=== PATIENT | female | born 1960 | race Caucasian/White ===

== ENCOUNTER 2016-08-12 01:48 | Inpatient (IN) ==
[2016-08-12] MEDS ORDERED: *HR* Heparin 5,000 UNIT/ML VIAL IVP PRN (04:04)
[2016-08-12] MEDS ORDERED: *HR* Heparin 5,000 UNIT/ML VIAL IVP ONE (04:04)
[2016-08-12] MEDS ORDERED: *HR* Metoprolol 5 MG/5 ML VIAL IVP PRN (04:04)
[2016-08-12] MEDS ORDERED: Pantoprazole 40 MG VIAL IVP STA (04:18)
[2016-08-12] MEDS ORDERED: *HR* OxyCODONE Immed Rel 5 MG TABLET PO PRN (04:18)
[2016-08-12] MEDS ORDERED: Ondansetron 4 MG/2 ML VIAL IVP PRN (04:18)
[2016-08-12] MEDS ORDERED: *HR* Morphine 2 MG/ML SYRINGE IVP PRN (04:18)
[2016-08-12] MEDS ORDERED: Naloxone 0.4 MG/ML INJ IVP PRN (04:18)
[2016-08-12] MEDS ORDERED: Albuterol 2.5 MG/3 ML NEBULIZER IH PRN (04:24)
[2016-08-12] MEDS ORDERED: 0.9 % Sodium Chloride 1,000 ML IVC SCH (04:30)
--- NOTE | 2016-08-12 04:53 | Internal Med History&Physical ---
<Cheryl Mueller - Last Filed: 08/12/16 04:43> Date of Encounter: 08/12/16 Time of Encounter: 04:15 Assessment and Plan (1) NSTEMI (non-ST elevated myocardial infarction) Current visit: No Status: Acute patient started having dull chest pain that started out as 10/10 and was relieved with nitroglycerin and ASA. Currently chest pain free. tropes .2 (At [place]), second trope .13. Third trope pending. Patient's EKG reviewed and compared to old EKG: shows sinus rhythm with new t wave changes consistent with anterolateral ischemia. Patient's BRAYAN score is 5, indicating 26% 14 day all cause mortality Start Heparin drip Continue ASA, Atorvastatin, Carvedilol, Plavix, Oxygen, Morphine, Nitroglycerin Lipid panel pending. NPO Consult to Cardiology for evaluation. (2) Anemia Current visit: Yes Status: Acute Hg measured at 10.3 Her baseline Hg is around 12. Etiology unclear at this time. stool occult blood pending. iron panel pending. TSH pending. B12, Folate levels pending. Qualifiers: Anemia type: unspecified type Qualified Code(s): D64.9 - Anemia, unspecified (3) CAD (coronary artery disease) Current visit: No Status: Chronic Continue ASA, Statin, plavix Qualifiers: Coronary Disease-Associated Artery/Lesion type: [place] artery [place] vs. transplanted heart: [place] heart Associated angina: without angina Qualified Code(s): I25.10 - Atherosclerotic heart disease of [place] coronary artery without angina pectoris (4) CHF (congestive heart failure) Current visit: No Status: Chronic Last echo on 02/18/16 showed LVEF 50%, normal LV size and low-normal systolic funciton, moderate diastolic dysfunciton of LV, no valvular dysfunction. COntinue to monitor. Continue home meds once med list confirmed. Qualifiers: Congestive heart failure type: diastolic Congestive heart failure chronicity: chronic Qualified Code(s): I50.32 - Chronic diastolic (congestive ) heart failure (5) COPD (chronic obstructive pulmonary disease) Current visit: No Status: Chronic Duo[place]eb PRN Qualifiers: COPD type: unspecified COPD Qualified Code(s): J44.9 - Chronic obstructive pulmonary disease, unspecified (6) Diabetes mellitus Current visit: No Status: Chronic Low dose sliding scale insulin with Q4 HR accuchecks. Qualifiers: Diabetes mellitus type: type 2 Diabetes mellitus complication status: with hyperglycemia Diabetes mellitus long term acute care registered nurse insulin use: without long term acute care registered nurse use Qualified Code(s): E11.65 - Type 2 diabetes mellitus with hyperglycemia (7) Dyslipidemia Current visit: No Status: Chronic Atorvastatin (8) RICHIE (obstructive sleep apnea) Current visit: No Status: Chronic patient states she is compliant with her CPAP at home. Consult to respiratory therapy to manage CPAP- qHS and when napping. (9) HTN (hypertension) Current visit: No Status: Chronic bp now stable. resume home blood pressure meds once med list is confirmed. Qualifiers: Hypertension type: essential hypertension Qualified Code(s): I10 - Essential (primary) hypertension (10) Tobacco use Current visit: Yes Status: Chronic patient counseled on importance of smoking cessation nicotine patch PRN. (11) DVT prophylaxis Current visit: No Status: Acute Heparin Drip Protonix for GI prophylaxis. Internal Medicine - H&P: HPI Chief complaint: chest pain Admitted From: Hospital to Hospital Transfer Plans for Post Hospital Care: Home History of present illness: PCP: Kiel Fisher Ms. Ferguson is a 56 year old female with PMHx of STEMI, RICHIE (reports compliance with CPAP), HTN, PVD, CAD, CHF (last echo on 02/18/16 showed LVEF 50%, normal LV size and low normal systolic function, moderate diastolic dysfunction of LV, no valvular dysfunction), HLD, DM2, COPD (on 3L home oxygen). Patient presents as a transfer from [facility]. Around 9pm yesterday evening, patient was making a sandwich at home when she noticed a dull ache in the center of her chest radiating down both of her arms and her jaw. She rates the pain as 10/10 when it first started, and it was so bad that she called the squad. In the ER, She received ASA, SL nitroglycerin, and nitro paste at the ER in [facility], which relieved the pain. Currently, the patient says her pain is 0/10. Patient denies nausea, vomiting, diarrhea. Admits to fever and chills. Denies dizziness , syncope, hematuria, hematochezia. Social Hx: lives by herself at home. Smokes 1/2-1 PPD. Has smoked for 42 years. Denies alcohol or illicit drug use. Family Hx: father from CHF/COPD at 81. Mother of pneumonia at 79, also had hx of uterine cancer. Surgical Hx: heart cath 2004, angioplasty 04/2014, Aorta B-femoral double bypass 05/2014, [facility] with stent 03/2016, tonsillectomy, hysterectomy Past Med Surg Social Fam HX - Past Medical History Medical history: CHF, COPD, coronary artery disease, diabetes, hyperlipidemia, hypertension, myocardial infarction, peripheral artery disease, other Psychiatric history: anxiety - Past Surgical History Surgical History: angioplasty/stent, hysterectomy, other (Aorto femoral bypass) - Social History Smoking Status: Former smoker Smokeless Tobacco Status: No Alcohol use: none Drug use: none - Family History Brother Hx Family Cardiac Disorders: Yes Son Living Status: Still Living Hx Family Respiratory Disorders: Yes (Childhood Asthma) Father Living Status: Hx Family Respiratory Disorders: Yes (COPD) Mother Living Status: Hx Family Cardiac Disorders: Yes (heart attack) Hx Family Respiratory Disorders: Yes (PNE) Internal Medicine - H&P: Meds Aspirin [Lo-Dose Aspirin EC] 81 mg PO DAILY 02/18/16 [History] Carvedilol [Coreg] 25 mg PO BID 02/18/16 [History] ClonazePAM [Clonazepam] 0.5 mg PO BID 02/18/16 [History] Ergocalciferol (VITAMIN D2) [Vitamin D2 (50,000 UNIT)] 50,000 unit PO QWEEK [History] Furosemide [Lasix] 40 mg PO TID 02/18/16 [History] Gabapentin [Neurontin] 400 mg PO TID 02/18/16 [History] Metformin [Glucophage] 500 mg PO BID 02/18/16 [History] Nitroglycerin 0.4 mg SL Q5MIN PRN 02/18/16 [History] Pantoprazole Sodium 40 mg PO DAILY 02/18/16 [History] Potassium Chloride [K-Tab ER] 10 meq PO BID 02/18/16 [History] Amlodipine [Norvasc] 10 mg PO DAILY #30 tablet 02/27/16 [Rx] Atorvastatin [Lipitor] 80 mg PO HS #30 tablet 02/27/16 [Rx] Beclomethasone Diprop 80mcg [QVAR 80 mcg] 2 puff IH BIDR #1 inhaler 02/27/16 [Rx ] Clopidogrel [Plavix] 75 mg PO DAILY #30 tablet 02/27/16 [Rx] Fluticasone Propionate Nasal [Flonase] 100 mcg NS DAILY #1 bottle 02/27/16 [Rx] Tiotropium [Spiriva] 18 mcg IH DAILYR inh 03/07/16 [Rx] Isosorbide MONOnitrate (24 HR) [Imdur] 30 mg PO DAILY 08/12/16 [History] Allergies acetaminophen [From Vicodin] Allergy (Verified 07/12/15 08:51) Hives hydrocodone [From Vicodin] Allergy (Verified 07/12/15 08:51) Hives budesonide [From Symbicort] Adverse Reaction (Verified 02/20/16 08:46) Cough Formoterol [From Symbicort] Adverse Reaction (Verified 02/20/16 08:46) Cough All Systems PM: A 10-system review of systems was performed and is negative for pertinent findings except as documented above in the HPI. - Constitutional Constitutional: chills, fever(s), no falls, no lethargy - Cardiovascular Cardiovascular ROS IM: chest pain, no lightheadedness, no palpitations, no syncope - Gastrointestinal Gastrointestinal: no abdominal pain, no hematochezia, no melena, no nausea - Neurological Neurological ROS: no dizziness, no headache(s) - Constitutional Vitals: Temp Pulse Resp BP Pulse Ox 97.6 F 71 18 114/71 97 08/12/16 04:16 08/12/16 04:16 08/12/16 04:16 08/12/16 04:16 08/12/16 04:16 General appearance: Present: A&O X 3, no acute distress, answers questions appropriately - Head Head exam: Present: atraumatic, normocephalic - Eye Eye exam: Present: PERRL Pupils: Present: PERRL - Neck Neck exam general surgery: Present: supple, trachea midline. Absent: lymphadenopathy - Respiratory Respiratory exam: Present: decreased breath sounds - Cardiovascular Cardiovascular exam: Present: RRR, +S1, +S2 - GI/Abdominal GI/Abdominal exam: Present: soft, tenderness (LUQ and LLQ abdominal tenderness to deep palpation. ) Additional comments: midline scar present from aortic bypass surgery. - Extremities Exam Extremities exam: Absent: cyanotic, pedal edema - Back Exam Additional comments: two scars present from cyst removal. - Neurological Exam Neurological exam: Present: alert, oriented X3, no focal deficits <Asad Estevez - Last Filed: 08/14/16 01:53> Date of Encounter: 08/12/16 Internal Medicine - H&P: HPI History of present illness: Ms. Ferguson is a 56 year old female admitted to [facility] with chief complaint of chest pain. The patient was visited and interviewed and examined. I examined this patient and my medical decision-making was reviewed with the Resident Physician. I agree with the documented findings, disposition and treatment plan as described except to the extent set forth below. Cumulative laboratory and radiographic data was reviewed and considered and discussed. Pertinent ancillary medical records including ECW and PCI documentation was reviewed and considered. Given the patient's presenting concerns, past medical history, clinical findings and symptoms, she is admitted at this time to undergo further evaluation and disposition. Orders were written as per the computerized physician food and beverage order clerk system......................... All Systems PM: A 10-system review of systems was performed and is negative for pertinent findings except as documented above in the HPI. - Constitutional Vitals: Temp Pulse Resp BP Pulse Ox 97.9 F 76 18 168/77 97 08/14/16 00:05 08/14/16 00:05 08/14/16 00:05 08/14/16 00:05 08/14/16 00:05 Internal Med - H&P Results - Labs CBC & Chem 7: 08/13/16 00:14 08/13/16 00:14 - Impressions Vital Signs Temp Pulse Resp BP Pulse Ox 08/14/16 00:05 97.9 F 76 18 168/77 97 08/13/16 23:42 20 98 08/13/16 23:02 180/92 08/13/16 22:44 193/89 08/13/16 20:49 98.5 F 73 16 179/84 97 08/13/16 16:05 4 97 08/13/16 15:09 98.3 F 74 16 156/72 99 08/13/16 11:19 98.1 F 72 16 145/69 98 08/13/16 10:32 24 98 08/13/16 07:24 98.2 F 77 16 162/70 95 08/13/16 04:26 97.8 F 76 20 147/65 99 08/13/16 03:54 17 98 Intake and Output 08/13/16 08/13/16 08/14/16 15:59 23:59 07:59 Intake Total 840 / 840 360 / 360 Output Total 400 / 400 850 / 850 Balance 440 / 440 -490 / -490 Intake: Oral 840 / 840 360 / 360 Output: Urine 400 / 400 850 / 850 Other: Meal Lunch Dinner Percent of Meal Consumed 100% 100% Stool Size Moderate Stool Consistency soft Stool Color Brown Blood Glucose* 148 151 Abnormal lab results Hgb 10.0 g/dL (11.5-15.4) L 08/13/16 00:14 Hct 31.9 % (35.3-44.9) L 08/13/16 00:14 MCV 77.4 fL (83.0-100.0) L 08/13/16 00:14 MCH 24.3 pg (28.0-33.3) L 08/13/16 00:14 MCHC 31.3 g/dL (31.6-35.5) L 08/13/16 00:14 RDW 16.5 % (11.5-14.5) H 08/13/16 00:14 APTT 74.1 Seconds (26.0-36.0) H D 08/13/16 08:10 Glucose 146 mg/dL (70-99) H 08/13/16 00:14 POC Glucose 151 (58-89) H 08/13/16 20:27 Hemoglobin A1c 5.9 % (-5.6) H 08/12/16 04:45 Iron 25 mcg/dL (50-170) L 08/13/16 00:14 % Saturation 7 % (15-50) L 08/13/16 00:14 Alkaline Phosphatase 196 Units/L (38-126) H 08/12/16 04:45 Troponin I 0.12 ng/mL (0-0.03) H* 08/13/16 00:14 Albumin 3.1 g/dL (3.5-5.0) L 08/12/16 04:45 Albumin/Globulin Ratio 0.9 (1.1-2.2) L 08/12/16 04:45 Triglycerides 249 mg/dL (< 150) H 08/13/16 00:14 LDL Cholesterol, Calc 111 mg/dL (0-99) H 08/13/16 00:14 VLDL Cholesterol, Calc 50 mg/dL (< 31) H 08/13/16 00:14 HDL Cholesterol 23 mg/dL (40-59) L 08/13/16 00:14 Cholesterol/HDL Ratio 8.0 (0-4.9) H 08/13/16 00:14 Ur Specific [place] 1.006 (1.010-1.025) L 08/12/16 18:45 Ur Leukocyte Esterase Moderate (Negative) H 08/12/16 18:45 Urine Microscopic WBC 5-15 per hpf (0-3) H 08/12/16 18:45 Ur Squamous Epith Cells Many per lpf (None-Few) H 08/12/16 18:45 Urine Bacteria Many per hpf (None-Few) H 08/12/16 18:45 Allergies Allergy/AdvReac Type Severity Reaction Status Date / Time acetaminophen [From Vicodin] Allergy Hives Verified 07/12/15 08:51 hydrocodone [From Vicodin] Allergy Hives Verified 07/12/15 08:51 budesonide [From Symbicort] AdvReac Cough Verified 02/20/16 08:46 Formoterol [From Symbicort] AdvReac Cough Verified 02/20/16 08:46 Laboratory Results WBC 9.6 K/mcL (4.3-11.1) 08/13/16 00:14 RBC 4.12 M/mcL (3.82-4.97) 08/13/16 00:14 Hgb 10.0 g/dL (11.5-15.4) L 08/13/16 00:14 Hct 31.9 % (35.3-44.9) L 08/13/16 00:14 MCV 77.4 fL (83.0-100.0) L 08/13/16 00:14 MCH 24.3 pg (28.0-33.3) L 08/13/16 00:14 MCHC 31.3 g/dL (31.6-35.5) L 08/13/16 00:14 RDW 16.5 % (11.5-14.5) H 08/13/16 00:14 Plt Count 272 K/mcL (140-400) 08/13/16 00:14 MPV 9.6 fL (9.4-12.4) 08/13/16 00:14 Immature Gran % 0.5 % (0-4) 08/12/16 04:45 Seg Neutrophils % 63.8 % 08/12/16 04:45 Lymphocytes % 28.3 % 08/12/16 04:45 Monocytes % 5.5 % 08/12/16 04:45 Eosinophils % 1.4 % 08/12/16 04:45 Basophils % 0.5 % 08/12/16 04:45 Neutrophils # 5.4 K/mcL (1.6-8.9) 08/12/16 04:45 Lymphocytes # 2.4 K/mcL (0.6-4.6) 08/12/16 04:45 Monocytes # 0.5 K/mcL (0.0-1.3) 08/12/16 04:45 Eosinophils # 0.1 K/mcL (0.0-0.6) 08/12/16 04:45 Basophils # 0.0 K/mcL (0.0-0.2) 08/12/16 04:45 PT 11.5 Seconds (9.4-12.1) 08/13/16 00:14 INR 1.1 08/13/16 00:14 APTT 74.1 Seconds (26.0-36.0) H D 08/13/16 08:10 Sodium 142 mEq/L (136-145) 08/13/16 00:14 Potassium 4.2 mEq/L (3.5-4.5) 08/13/16 00:14 Chloride 107 mEq/L (98-109) 08/13/16 00:14 Carbon Dioxide 24 mEq/L (19-29) 08/13/16 00:14 BUN 15 mg/dL (7-20) 08/13/16 00:14 Creatinine 0.94 mg/dL (0.57-1.11) 08/13/16 00:14 Est GFR ( Amer) > 60 (> 60) 08/13/16 00:14 Est GFR (Non-Af Amer) > 60 (> 60) 08/13/16 00:14 BUN/Creatinine Ratio 16 (6-26) 08/13/16 00:14 Glucose 146 mg/dL (70-99) H 08/13/16 00:14 POC Glucose 151 (58-89) H 08/13/16 20:27 Est Mean Plasma Glucose 123 mg/dl 08/12/16 04:45 Hemoglobin A1c 5.9 % (-5.6) H 08/12/16 04:45 Calculated Osmolality 297 (280-300) 08/13/16 00:14 Calcium 9.2 mg/dL (8.6-10.8) 08/13/16 00:14 Phosphorus 4.3 mg/dL (2.3-4.7) 08/12/16 04:45 Magnesium 2.2 mg/dL (1.6-2.6) 08/12/16 04:45 Iron 25 mcg/dL (50-170) L 08/13/16 00:14 % Saturation 7 % (15-50) L 08/13/16 00:14 Transferrin 260 mg/dL (180-382) 08/13/16 00:14 Total Bilirubin 0.3 mg/dL (0.2-1.2) 08/12/16 04:45 AST 12 Units/L (5-34) 08/12/16 04:45 ALT 14 Units/L (0-55) 08/12/16 04:45 Alkaline Phosphatase 196 Units/L (38-126) H 08/12/16 04:45 Troponin I 0.12 ng/mL (0-0.03) H* 08/13/16 00:14 B-Natriuretic Peptide 40 pg/mL (0-100) 08/12/16 04:45 Serum Total Protein 6.4 g/dL (6.0-8.3) 08/12/16 04:45 Albumin 3.1 g/dL (3.5-5.0) L 08/12/16 04:45 Globulin 3.3 g/dL (2.4-3.5) 08/12/16 04:45 Albumin/Globulin Ratio 0.9 (1.1-2.2) L 08/12/16 04:45 Triglycerides 249 mg/dL (< 150) H 08/13/16 00:14 Cholesterol 184 mg/dL (< 200) 08/13/16 00:14 LDL Cholesterol, Calc 111 mg/dL (0-99) H 08/13/16 00:14 VLDL Cholesterol, Calc 50 mg/dL (< 31) H 08/13/16 00:14 HDL Cholesterol 23 mg/dL (40-59) L 08/13/16 00:14 Cholesterol/HDL Ratio 8.0 (0-4.9) H 08/13/16 00:14 Vitamin B12 347 pg/mL (213-816) 08/12/16 04:45 Folate 9.8 ng/mL (7.0-31.4) 08/12/16 04:45 TSH 0.516 mcIU/mL (0.350-4.840) 08/12/16 04:45 Urine Color Yellow (Yellow) 08/12/16 18:45 Urine Clarity Clear (Clear) 08/12/16 18:45 Urine pH 7.0 pH Units (5.0-8.0) 08/12/16 18:45 Ur Specific [place] 1.006 (1.010-1.025) L 08/12/16 18:45 Urine Protein Negative mg/dL (Neg-Trace) 08/12/16 18:45 Urine Glucose (UA) Normal mg/dL (Normal) 08/12/16 18:45 Urine Ketones Negative mg/dL (Negative) 08/12/16 18:45 Urine Blood Negative (Negative) 08/12/16 18:45 Urine Nitrite Negative (Negative) 08/12/16 18:45 Urine Bilirubin Negative (Negative) 08/12/16 18:45 Urine Urobilinogen Normal mg/dL (Normal) 08/12/16 18:45 Ur Leukocyte Esterase Moderate (Negative) H 08/12/16 18:45 Urine Microscopic RBC 0-3 per hpf (0-3) 08/12/16 18:45 Urine Microscopic WBC 5-15 per hpf (0-3) H 08/12/16 18:45 Ur Squamous Epith Cells Many per lpf (None-Few) H 08/12/16 18:45 Urine Bacteria Many per hpf (None-Few) H 08/12/16 18:45 Hyaline Casts None Seen per lpf (None-Few) 08/12/16 18:45 Urine Opiates Screen Negative ng/mL (Uvfxwi=865) 08/12/16 18:45 Ur Barbiturates Screen Negative ng/mL (Opgmoa=150) 08/12/16 18:45 Ur Phencyclidine Scrn Negative ng/mL (Cutoff=25) 08/12/16 18:45 Ur Amphetamines Screen Negative ng/mL (Rjavfy=6420) 08/12/16 18:45 U Benzodiazepines Scrn Negative ng/mL (Mmogsq=388) 08/12/16 18:45 Urine Cocaine Screen Negative ng/mL (Cutoff= 300) 08/12/16 18:45 U Marijuana (THC) Screen Negative ng/mL (Cutoff = 50) 08/12/16 18:45 Blood Type O NEGATIVE 08/12/16 04:45 Antibody Screen NEGATIVE 08/12/16 04:45 - Attending Attestation My signature below is to certify that this patient is under my care and that I, or the Resident Physician working with me, has had a [id number] encounter with this patient. Plan of care has been reviewed and discussed in detail with the patient. Questions addressed. Advance care directive discussion briefly addressed. The patient does not declare any healthcare restrictions at this time. Outpatient medication schedules will be reviewed, confirmed and facilitated as appropriate. Reconciliation of home treatments including adjustment substitutions and reintroduction to the treatment regimen status or maintenance therapies for chronic pre-existing medical conditions. Smoke cessation counseling briefly addressed. The patient declares herself a former smoker. Hospital course will be dependent on clinical findings, treatment response and potential consultative interventions. The patient is at risk for acute clinical decline and morbidity given the presenting chief complaint, findings and associated comorbidities. The condition is serious. Prognosis is cautiously optimistic. CODE STATUS is full.
[2016-08-12] MEDS: Heparin 25,000 UNIT/500 ML D5W 25,000 UNIT/500 ML MLS IVC SCH (04:58)
[2016-08-12 05:01] LABS: Basophils % 0.5 %; Eosinophils # 0.1 K/mcL (0.0-0.6); Eosinophils % 1.4 %; Hematocrit 33.4 % (35.3-44.9); Hemoglobin 10.3 g/dL (11.5-15.4); Immature Granulocytes % 0.5 % (0-4); Lymphocytes # 2.4 K/mcL (0.6-4.6); Lymphocytes % 28.3 %; Mean Corpuscular HGB Conc 30.8 g/dL (31.6-35.5); Mean Corpuscular Hemoglobin 23.8 pg (28.0-33.3); Mean Corpuscular Volume 77.1 fL (83.0-100.0); Mean Platelet Volume 9.2 fL (9.4-12.4); Monocytes # 0.5 K/mcL (0.0-1.3); Monocytes % 5.5 %; Neutrophils # 5.4 K/mcL (1.6-8.9); Platelet Count 326 K/mcL (140-400); Red Blood Count 4.33 M/mcL (3.82-4.97); Red Cell Distribution Width 16.4 % (11.5-14.5); Segmented Neutrophils % 63.8 %
[2016-08-12 05:09] LABS: INR 1.1; Prothrombin Time 11.9 Seconds (9.4-12.1)
[2016-08-12 05:12] LABS: Activated Partial Thrombo Time 38.9 Seconds (26.0-36.0)
[2016-08-12 05:15] LABS: Hemoglobin A1C 5.9 %
[2016-08-12 05:16] LABS: Alanine Aminotransferase 14 Units/L (0-55); Albumin 3.1 g/dL (3.5-5.0); Albumin/Globulin Ratio 0.9 (1.1-2.2); Alkaline Phosphatase 196 Units/L (38-126); Aspartate Amino Transferase 12 Units/L (5-34); BUN/Creatinine Ratio 15 (6-26); Bilirubin,Total 0.3 mg/dL (0.2-1.2); Blood Urea Nitrogen 13 mg/dL (7-20); Calcium 9.2 mg/dL (8.6-10.8); Carbon Dioxide 27 mEq/L (19-29); Chloride 105 mEq/L (98-109); Globulin 3.3 g/dL (2.4-3.5); Glucose 102 mg/dL (70-99); Magnesium 2.2 mg/dL (1.6-2.6); Osmolality,Calculated 294 (280-300); Potassium 3.8 mEq/L (3.5-4.5); Sodium 142 mEq/L (136-145); Total Protein 6.4 g/dL (6.0-8.3); eGFR For African Americans > 60 (> 60); eGFR For Non-African Americans > 60 (> 60)
[2016-08-12] MEDS ORDERED: *HR* Dextrose 50 % in Water (Syg) 50 ML SYRINGE IVP PRN (05:18)
[2016-08-12] MEDS ORDERED: Dextrose Gel 15 GM PO PRN ×2 (05:18)
[2016-08-12] MEDS ORDERED: D5% in Water 1,000 ML IV PRN (05:18)
[2016-08-12] MEDS: Ipratropium/Albuterol Neb 3 ML IH SCH ×4 (05:33→22:55)
[2016-08-12 05:38] LABS: Thyroid Stimulating Hormone 0.516 mcIU/mL (0.350-4.840)
[2016-08-12] MEDS ORDERED: Nitroglycerin 1 INCH/GM PACKET TP SCH (06:00)
[2016-08-12 07:08] LABS: Folate 9.8 ng/mL (7.0-31.4)
[2016-08-12] MEDS ORDERED: Insulin LISPRO 300 UNITS/3 ML VIAL SQ SCH ×2 (07:30→21:00)
[2016-08-12] MEDS: Insulin LISPRO 300 UNITS/3 ML VIAL SQ SCH ×4 (07:49→20:30)
[2016-08-12] MEDS: Lisinopril 20 MG TABLET PO SCH (09:23)
[2016-08-12] MEDS: Aspirin 81 MG TAB.CHEW PO SCH (09:23)
[2016-08-12] MEDS: Nicotine 21 MG PATCH.TD24 TD SCH (09:23)
[2016-08-12] MEDS ORDERED: Isosorbide MONOnitrate (24 HR) 60 MG TAB.ER.24H PO SCH (09:30)
--- NOTE | 2016-08-12 09:37 | Cardiology Consult Note ---
Date of Encounter: 08/12/16 Time of Encounter: 09:00 Assessment and Plan (1) Elevated troponin Current Visit: Yes Status: Acute NSTEMI type I vs. type II in the setting of severely elevated BP--214/104; however ACS cannot be ruled out. Denies recurrent symptoms since initial NTG spray. Non-specific ECG changes noted. Recently started on long-acting nitrate as outpatient for stable angina-- reports significant improvement in symptoms. Discussed medical management vs. [facility]; patient elects to trial of medical therapy with close outpatient follow-up. Increase Imdur to 60 mg; continue asa, statin, plavix, betablocker, and ACEi. DAPT uninterrupted at least 1 year s/p PRANAV--placed February 2016. Continue heparin gtt x24-48 hours. Check limited echocardiogram. (2) Diastolic CHF Current Visit: Yes Status: Acute Hx of diastolic CHF, EF preserved per most recent TTE in February 2016. Appears euvolemic upon exam, continue home medications. Severely elevated HTN upon admission, now controlled. Kidney function normal. 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 Continue outpt meds, defer further recommendations to primary service. Qualifiers: COPD type: unspecified COPD Qualified Code(s): J44.9 - Chronic obstructive pulmonary disease, unspecified (4) Tobacco use Current Visit: Yes Status: Chronic Smoking cessation counseling encouraged; has no interest to quit at this time. Discussion w patient/family: The assessment and plan as outlined above was discussed with the patient and/or family members who expressed understanding and agreement. All questions were answered. Thank you for involving us in the care of your patient. Please call with any questions. The patient will be discussed and reviewed with Dr. Babatunde Simmons; changes to be made accordingly. History of Present Illness Consult date: 08/12/16 Requesting physician: Asad Estevez Consult reason: Elevated troponin Chief complaint: Chest pain History of present illness: Ms. Ferguson is a 56 year old female with PMH significant for CAD s/p PCI, HTN, HLD, RICHIE, end-stage COPD dependent on home oxygen who presented to [facility] ED with 2-hr duration of chest pain. Pain was alleviated with x2 NTG spray administered by EMS. Reports chest discomfort with radiation to bilateral arms started while she was watching TV on the couch--she took her BP and it was 214/ 104. Initial troponin 0.21--she was transferred to [facility] for further evaluation. Upon arrival to [facility], troponin was 0.13. Non-specific ECG changes noted. She denies recurrent chest pain since admission. Recently started on Imdur as outpatient which has significantly improved stable angina symptoms at home. Prior CV testing includes: C 02/26/16: PTCA/PRANAV to prox-mid LAD; EF 55%; otherwise moderate-severe CAD (60% OM1, 30% pRCA, 70% dRCA). TTE 02/18/16: LVEF 50%; moderate LV diastolic dysfunction. Nuclear stress 07/2015:LVEF 32%, mild TID, moderate apical inferior ischemia TTE 10/10/2014: EF 45%. Mild concentric LVH. Holter monitor 02/15/2014: Normal sinus rhythm with rare PACs and PVCs. Non exercise, nuclear stress test 09/2011: Negative for ischemia. [facility] 2005: Report indicates mild disease involving the LAD (30%). Past Med Surg Social Fam HX - Past Medical History Medical history: CHF (chronic, diastolic), COPD, coronary artery disease, diabetes, hyperlipidemia, hypertension, myocardial infarction, peripheral artery disease Psychiatric history: anxiety - Past Surgical History Surgical History: angioplasty/stent, hysterectomy, other (Aorto femoral bypass) - Social History Smoking Status: Former smoker Smokeless Tobacco Status: No Alcohol use: none Drug use: none - Family History Brother Hx Family Cardiac Disorders: Yes Son Living Status: Still Living Hx Family Respiratory Disorders: Yes (Childhood Asthma) Father Living Status: Hx Family Respiratory Disorders: Yes (COPD) Mother Name: Vidhi Horn Family Member Ethnicity: Non- Living Status: Age at : 79 Cause of : bilateral pneumonia Hx Family Cardiac Disorders: Yes (heart attack) Hx Family Respiratory Disorders: Yes (PNE) Hx Family Cancer: Yes Hx Family GI Disorders: No Hx Family Genitourinary Disorders: No Hx Family Endocrine Disorder: No Hx Family Musculoskeletal Disorders: No Hx Family Neuromuscular Disorders: No Hx Family Neurologic Disorders: No Hx Family HEENT Disorders: No Hx Family Autoimmune Disorders: No Hx Family Reproductive Disorders: No Hx Family Psychosocial Disorders: No Hx Family Medical Disorders: No Medications and Allergies Aspirin [Lo-Dose Aspirin EC] 81 mg PO DAILY 02/18/16 [History] Carvedilol [Coreg] 25 mg PO BID 02/18/16 [History] ClonazePAM [Clonazepam] 0.5 mg PO BID 02/18/16 [History] Ergocalciferol (VITAMIN D2) [Vitamin D2 (50,000 UNIT)] 50,000 unit PO QWEEK [History] Furosemide [Lasix] 40 mg PO TID 02/18/16 [History] Gabapentin [Neurontin] 400 mg PO TID 02/18/16 [History] Metformin [Glucophage] 500 mg PO BID 02/18/16 [History] Nitroglycerin 0.4 mg SL Q5MIN PRN 02/18/16 [History] Pantoprazole Sodium 40 mg PO DAILY 02/18/16 [History] Potassium Chloride [K-Tab ER] 10 meq PO BID 02/18/16 [History] Amlodipine [Norvasc] 10 mg PO DAILY #30 tablet 02/27/16 [Rx] Atorvastatin [Lipitor] 80 mg PO HS #30 tablet 02/27/16 [Rx] Beclomethasone Diprop 80mcg [QVAR 80 mcg] 2 puff IH BIDR #1 inhaler 02/27/16 [Rx ] Clopidogrel [Plavix] 75 mg PO DAILY #30 tablet 02/27/16 [Rx] Fluticasone Propionate Nasal [Flonase] 100 mcg NS DAILY #1 bottle 02/27/16 [Rx] Tiotropium [Spiriva] 18 mcg IH DAILYR inh 03/07/16 [Rx] Isosorbide MONOnitrate (24 HR) [Imdur] 30 mg PO DAILY 08/12/16 [History] Allergies acetaminophen [From Vicodin] Allergy (Verified 07/12/15 08:51) Hives hydrocodone [From Vicodin] Allergy (Verified 07/12/15 08:51) Hives budesonide [From Symbicort] Adverse Reaction (Verified 02/20/16 08:46) Cough Formoterol [From Symbicort] Adverse Reaction (Verified 02/20/16 08:46) Cough All Systems Review: A 10-system review of systems was performed and is negative for pertinent findings except as documented above in the HPI. - Cardiovascular Cardiovascular: as per HPI Physical Examination Vital Signs, Last 4 Hours Temp Pulse Resp BP Pulse Ox 08/12/16 06:32 97.8 F 67 16 118/64 98 08/12/16 06:15 16 97 08/12/16 05:35 16 97 General: Conversant, No Apparent Distress HEENT: Atraumatic, Normocephaly, Mucus Membranes Moist Cardiac: Reg Rate and Rhythm, Normal S1 and S2 Lungs: Other (Wheezes throughout) Neuro: Alert and responsive Abdomen: Soft Skin: No rashes noted on visualized skin Musculoskeletal: No Chest Wall Tenderness Extremities: Normal Pulses, Other (trace, non-pitting) Results 08/12/16 04:45 08/12/16 04:45 Lab Results 08/12/16 08/12/16 08/12/16 04:45 04:45 04:45 WBC 8.5 Hgb 10.3 L Hct 33.4 L Plt Count 326 INR 1.1 APTT 38.9 H Sodium 142 Potassium 3.8 Chloride 105 Carbon Dioxide 27 BUN 13 Creatinine 0.87 Glucose 102 H Calcium 9.2 Magnesium 2.2 Total Bilirubin 0.3 AST 12 ALT 14 Alkaline Phosphatase 196 H Troponin I B-Natriuretic Peptide TSH 0.516 08/12/16 08/12/16 04:45 04:45 WBC Hgb Hct Plt Count INR APTT Sodium Potassium Chloride Carbon Dioxide BUN Creatinine Glucose Calcium Magnesium Total Bilirubin AST ALT Alkaline Phosphatase Troponin I 0.13 H* B-Natriuretic Peptide 40 TSH Active Medications Al Hydrox/Mg Hydrox/Simethicone (Maalox) 15 ml PO Q6HR PRN PRN Reason: Dyspepsia Stop: 02/11/17 04:19 Albuterol Sulfate (Proventil Neb) 2.5 mg IH Q2H PRN PRN Reason: Shortness Of Breath/Wheezing Stop: 02/11/17 04:25 Albuterol/Ipratropium (Duoneb) 3 ml IH QIDR KAMERON Stop: 02/11/17 05:01 Last Admin: 08/12/16 05:33 Dose: 3 ml Aspirin (Aspirin) 81 mg PO DAILY KAMERON Stop: 02/11/17 09:01 Last Admin: 08/12/16 09:23 Dose: 81 mg Atorvastatin Calcium (Lipitor) 80 mg PO HS KAMERON Stop: 02/11/17 21:01 Carvedilol (Coreg) 25 mg PO BID KAMERON PRN Reason: Protocol Stop: 02/11/17 09:01 Last Admin: 08/12/16 09:23 Dose: 25 mg Clopidogrel Bisulfate (Plavix) 75 mg PO DAILY [facility] Stop: 02/11/17 09:01 Last Admin: 08/12/16 09:23 Dose: 75 mg Dextrose/Water (Dextrose 50% (Syg)) 25 ml IVP AD PRN PRN Reason: Hypoglycemia Stop: 02/11/17 05:19 Docusate Sodium (Colace) 100 mg PO BID [facility] Stop: 02/11/17 09:01 Last Admin: 08/12/16 09:23 Dose: 100 mg Heparin Sodium (Porcine) (Heparin) 4,000 unit IVP Q6HR PRN PRN Reason: SEE COMMENTS Stop: 02/11/17 04:05 Heparin Sodium (Porcine) (Heparin) 2,000 unit IVP Q6H PRN PRN Reason: SEE COMMENTS Stop: 02/11/17 04:05 Heparin Sodium/Dextrose (Heparin 25,000 Unit/500 Ml D5w) 25,000 unit in 500 mls @ 19.922 mls/hr IVC .Q24H KAMERON; 12 UNIT/KG/HR PRN Reason: Protocol Stop: 02/11/17 04:16 Last Admin: 08/12/16 04:58 Dose: 12 unit/kg/hr, 19.922 mls/hr Dextrose (Dextrose 5%) 1,000 mls @ 100 mls/hr IV CONT PRN PRN Reason: HYPOGLYCEMIA Stop: 02/11/17 05:19 Insulin Human Lispro (Humalog) 0 units SQ Q4HR KAMERON PRN Reason: Protocol Stop: 02/11/17 08:01 Last Admin: 08/12/16 07:49 Dose: Not Given Isosorbide Mononitrate (Imdur) 60 mg PO DAILY [facility] Stop: 02/11/17 09:31 Lisinopril (Zestril) 40 mg PO DAILY [facility] Stop: 02/11/17 09:01 Last Admin: 08/12/16 09:23 Dose: 40 mg Metoprolol Tartrate (Lopressor) 5 mg IVP Q6HR PRN PRN Reason: SEE COMMENTS Stop: 02/11/17 04:05 Morphine Sulfate (Morphine Sulfate) 2 mg IVP Q2H PRN PRN Reason: Severe Pain (7-10) Stop: 02/11/17 04:19 Naloxone HCl (Narcan) 0.4 mg IVP Q2MIN PRN PRN Reason: Opioid Reversal Stop: 02/11/17 04:19 Nicotine (Nicoderm) 21 mg TD DAILY KAMERON PRN Reason: Protocol Stop: 02/11/17 09:01 Last Admin: 08/12/16 09:23 Dose: 21 mg Nitroglycerin (Nitroglycerin) 0.4 mg SL Q5MIN PRN PRN Reason: Chest Pain Stop: 02/11/17 04:05 Omeprazole (Prilosec) 40 mg PO DAILY@0630 KAMERON PRN Reason: Protocol Stop: 02/11/17 06:31 Last Admin: 08/12/16 06:56 Dose: 40 mg Ondansetron HCl (Zofran) 4 mg IVP Q8HR PRN PRN Reason: Nausea And Vomiting Stop: 02/11/17 04:19 Oxycodone HCl (Roxicodone) 10 mg PO Q6HR PRN PRN Reason: Moderate Pain (4-6) Stop: 02/11/17 04:19 - Imaging and Cardiology Stress Test: report reviewed Echo: report reviewed Cardiac cath: report reviewed Other Results: 12 hour tele: avg HR=69 SR. No significant events noted. - EKG Interpretation EKG results cardiology: personally reviewed Consult Discharge Plan - Plan Referrals: Kiel Fisher DO [Primary Care Provider] -
--- NOTE | 2016-08-12 10:16 | Event Note ---
Date of Encounter: 08/12/16 Time of Encounter: 09:35 Patient feeling better but feels like her chest pain is returning at this time. Started back on her home medication regimen. Cardiology consulted. Increased Imdur to 60 mg by mouth daily. Continue IV heparin. Continue dual antiplatelet therapy. Patient also has chronic respiratory failure and is on home oxygen.
[2016-08-12] MEDS: *HR* Heparin 5,000 UNIT/ML VIAL IVP PRN (10:57)
--- NOTE | 2016-08-12 14:35 | ECHO - Doppler Report ---
Limited Echocardiogram Name: Anabelle Ferguson Date of Study: 08/12/2016 Date: 1960 Ht: 63.0 in Medical Record#: [id number] Age: 56 Wt: 183.0 lb Gender: Female BSA: 1.86 Order #: [id number] Location: [facility] Room #: 2A32 Reading Physician: Maddi Garcia DO Benefit Specialist: Charles Londono RDCS Ordering Physician: Tiffany Amador CNP Primary Physician: Kiel Fisher DO Indications: Chest pain, Elevated troponin Impressions: LVEF 55%. Normal left ventricular size and systolic function. Normal right ventricular size and function. Left Ventricular Wall Motion: Rest Echo Findings All wall segments showed normal motion. Findings: Study Quality * Technically adequate exam. ECG Findings * Normal sinus rhythm. Left Ventricle * LVEF 55%. * Normal LV chamber size, wall thickness and function. Right Ventricle * Normal right ventricular structure and function. History Hypertension Diabetes Hypercholesteremia History of Smoking Years 41 Packs 1 Family History of CAD History of CAD/PTCA Myocardial Infarction Congestive Heart Failure 02/18/16 a Previous Echo was performed. Measurements: BP: 118/ 64 2D Normal Values IVSd: 1.12 cm 0.6 - 1.0 cm LVIDd: 6.17 cm 3.7 - 5.6 cm LVPWd: 1.02 cm 0.6 - 1.1 cm LVIDs: 4.28 cm 1.5 - 3.6 cm LA: 4.20 cm 2.0 - 4.0cm %FS: 30.60 cm >25 % LA volume: Updated by Maddi Garcia on 08/12/2016 2:28:20 PM electronically signed on 08/12/2016 2:29:04 PM with status of Final Wall Motion Florian: 1=Normal, 2=Hypokinesis, 3=Akinesis, 4=Dyskinesis, 5=Aneurysmal, 6=Hyperkinetic, X=Not Visualized (Blank)=Missing
[2016-08-12] MEDS: Nitroglycerin 0.4 MG TAB.SUBL SL PRN ×2 (18:41→21:24)
[2016-08-12 18:58] LABS: Amphetamine Screen,Urine Negative ng/mL (Cutoff=1000); Barbiturate Screen,Urine Negative ng/mL (Cutoff=200); Benzodiazepines Screen,Urine Negative ng/mL (Cutoff=200); Cannabinoid Screen,Urine Negative ng/mL (Cutoff = 50); Cocaine Screen,Urine Negative ng/mL (Cutoff= 300); Opiate Screen,Urine Negative ng/mL (Cutoff=300); Phencyclidine Screen,Urine Negative ng/mL (Cutoff=25)
[2016-08-12 19:02] LABS: Bilirubin,Urine Negative (Negative); Blood,Urine Negative (Negative); Clarity,Urine Clear (Clear); Color,Urine Yellow (Yellow); Glucose,Urine (UA) Normal (Normal); Ketones,Urine Negative (Negative); Leukocyte Esterase,Urine Moderate (Negative); Nitrite,Urine Negative (Negative); Protein,Urine Negative (Neg-Trace); Specific Gravity,Urine 1.006 (1.010-1.025); Urobilinogen,Urine Normal (Normal)
[2016-08-12 19:07] LABS: Bacteria,Urine Many per hpf (None-Few); Hyaline Casts,Urine None Seen per lpf (None-Few); RBC,Urine 0-3 per hpf (0-3); Squamous Epithelial Cell,Urine Many per lpf (None-Few)
[2016-08-12] MEDS: Mag Hydrox/Al Hydrox/Simeth 30 ML UDC PO PRN (20:31)
[2016-08-12] MEDS ORDERED: Isosorbide MONOnitrate (24 HR) 30 MG TAB.ER.24H PO STA (21:54)
[2016-08-12] MEDS ORDERED: CLONAZEPAM 0.5 MG PO SCH (22:00)
[2016-08-12] MEDS ORDERED: clonazePAM 0.5 MG TABLET PO ONE (22:21)
[2016-08-13] MEDS: Insulin LISPRO 300 UNITS/3 ML VIAL SQ SCH ×6 (00:10→20:28)
[2016-08-13 00:53] LABS: Hematocrit 31.9 % (35.3-44.9); Mean Corpuscular HGB Conc 31.3 g/dL (31.6-35.5); Mean Corpuscular Hemoglobin 24.3 pg (28.0-33.3); Mean Corpuscular Volume 77.4 fL (83.0-100.0); Mean Platelet Volume 9.6 fL (9.4-12.4); Platelet Count 272 K/mcL (140-400); Red Blood Count 4.12 M/mcL (3.82-4.97); Red Cell Distribution Width 16.5 % (11.5-14.5)
[2016-08-13 01:00] LABS: INR 1.1; Prothrombin Time 11.5 Seconds (9.4-12.1)
[2016-08-13 01:03] LABS: Activated Partial Thrombo Time 43.8 Seconds (26.0-36.0)
[2016-08-13 01:12] LABS: BUN/Creatinine Ratio 16 (6-26); Blood Urea Nitrogen 15 mg/dL (7-20); Calcium 9.2 mg/dL (8.6-10.8); Carbon Dioxide 24 mEq/L (19-29); Chloride 107 mEq/L (98-109); Cholesterol 184 mg/dL (< 200); Glucose 146 mg/dL (70-99); HDL Cholesterol 23 mg/dL (40-59); LDL Cholesterol,Calculated 111 mg/dL (0-99); Osmolality,Calculated 297 (280-300); Potassium 4.2 mEq/L (3.5-4.5); Sodium 142 mEq/L (136-145); Triglycerides 249 mg/dL (< 150); eGFR For African Americans > 60 (> 60); eGFR For Non-African Americans > 60 (> 60)
[2016-08-13 01:14] LABS: % Iron Saturation 7 % (15-50); Iron 25 mcg/dL (50-170); Transferrin 260 mg/dL (180-382)
[2016-08-13] MEDS: Heparin 25,000 UNIT/500 ML D5W 25,000 UNIT/500 ML MLS IVC SCH (01:44)
[2016-08-13] MEDS: *HR* Heparin 5,000 UNIT/ML VIAL IVP PRN (01:50)
[2016-08-13] MEDS: Ipratropium/Albuterol Neb 3 ML IH SCH ×4 (03:53→23:43)
[2016-08-13] MEDS: Isosorbide MONOnitrate (24 HR) 60 MG TAB.ER.24H PO SCH (08:30)
[2016-08-13] MEDS: clonazePAM 0.5 MG TABLET PO SCH ×3 (08:30→20:29)
[2016-08-13] MEDS: Aspirin 81 MG TAB.CHEW PO SCH (08:31)
[2016-08-13] MEDS: Nicotine 21 MG PATCH.TD24 TD SCH (08:31)
[2016-08-13] MEDS: Lisinopril 20 MG TABLET PO SCH (08:31)
--- NOTE | 2016-08-13 10:06 | Cardiology Progress Note ---
Date of Encounter: 08/13/16 Time of Encounter: 09:15 Assessment and Plan (1) Elevated troponin Current Visit: Yes Status: Acute NSTEMI type I vs. type II in the setting of severely elevated BP--214/104; however ACS cannot be ruled out. Denies recurrent symptoms since initial NTG spray. Non-specific ECG changes noted. [facility] 02/2016: successful PTCA/PRANAV to prox-mid LAD; 60% stenosis OM1, 30% pRCA, 70 % dRCA. Recently started on long-acting nitrate as outpatient for stable angina-- reports significant improvement in symptoms. Discussed medical management vs. [facility]; patient elects to trial of medical therapy with close outpatient follow-up. Imdur increased to 90 mg this AM d/t recurrent angina overnight--continue to increase as BP will tolerate. Recommend LHC due to continued symptoms; however she has no interest in LHC at this time. Heparin has infused >24 hours, will d/c. Limited echo shows preserved LV function, EF 55%, normal wall motion. Continue DAPT (asa + plavix), betablocker, statin, and nitrates. Risk factor modification emphasized including smoking cessation. (2) Diastolic CHF Current Visit: Yes Status: Acute Hx of diastolic CHF, EF preserved per most recent TTE in February 2016. Appears euvolemic upon exam, continue home medications. Severely elevated HTN upon admission, now controlled. Kidney function normal. 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 Continue outpt meds, defer further recommendations to primary service. Qualifiers: COPD type: unspecified COPD Qualified Code(s): J44.9 - Chronic obstructive pulmonary disease, unspecified (4) Tobacco use Current Visit: Yes Status: Chronic Smoking cessation counseling encouraged; has no interest to quit at this time. Discussion w patient/family: The assessment and plan as outlined above was discussed with the patient and/or family members who expressed understanding and agreement. All questions were answered. Thank you for involving us in the care of your patient. Please call with any questions. The patient will be discussed and reviewed with Dr. Babatunde Simmons; changes to be made accordingly. Subjective Principal diagnosis: NSTEMI Interval history: Seen and examined. Reports episode of angina overnight, pain relieved with NTG tab. Objective Vital Signs, Last 4 Hours Temp Pulse Resp BP Pulse Ox 08/13/16 07:24 98.2 F 77 16 162/70 95 General: Conversant, No Apparent Distress HEENT: Atraumatic, Normocephaly, Mucus Membranes Moist Cardiac: Reg Rate and Rhythm, Normal S1 and S2 Lungs: Other (Wheezes throughout) Neuro: Alert and responsive Abdomen: Soft Skin: No rashes noted on visualized skin Musculoskeletal: No Chest Wall Tenderness Extremities: No Edema, Normal Pulses Results 08/13/16 00:14 08/13/16 00:14 Lab Results 08/12/16 08/12/16 08/12/16 10:16 10:16 16:58 WBC Hgb Hct Plt Count INR APTT 50.7 H Sodium Potassium Chloride Carbon Dioxide BUN Creatinine Glucose Calcium Troponin I 0.13 H* 0.14 H* 08/12/16 08/13/16 08/13/16 16:58 00:14 00:14 WBC Hgb Hct Plt Count INR APTT 36.9 H 43.3 H Sodium Potassium Chloride Carbon Dioxide BUN Creatinine Glucose Calcium Troponin I 0.12 H* 08/13/16 08/13/16 08/13/16 00:14 00:14 00:14 WBC 9.6 Hgb 10.0 L Hct 31.9 L Plt Count 272 INR 1.1 APTT 43.8 H Sodium 142 Potassium 4.2 Chloride 107 Carbon Dioxide 24 BUN 15 Creatinine 0.94 Glucose 146 H Calcium 9.2 Troponin I 08/13/16 08:10 WBC Hgb Hct Plt Count INR APTT 74.1 H D Sodium Potassium Chloride Carbon Dioxide BUN Creatinine Glucose Calcium Troponin I - Imaging and Cardiology Echo: report reviewed Cardiac cath: report reviewed Other Results: 12 hour tele: avg HR=67 SR. No significant events noted. - EKG Interpretation EKG results cardiology: personally reviewed Consult Discharge Plan - Plan Referrals: Kiel Fisher DO [Primary Care Provider] - 08/20/16 8:45 am (Please follow up as schedule...)
[2016-08-13] MEDS ORDERED: *HR* OxyCODONE Immed Rel 5 MG TABLET PO PRN (12:52)
--- NOTE | 2016-08-13 14:04 | Internal Med Progress Note ---
Date of Encounter: 08/13/16 Time of Encounter: 14:01 - Assessment and plan (1) Anemia Current Visit: Yes Status: Acute Assessment and plan: Hg measured at 10.3 possible iron deficiency anemia. Her baseline Hg is around 12. iron panel shows low tsat and iron levels. will start oral ferrous sulfate. TSH, B12 and folate are within normal limits. Qualifiers: Anemia type: unspecified type Qualified Code(s): D64.9 - Anemia, unspecified (2) NSTEMI (non-ST elevated myocardial infarction) Current Visit: No Status: Acute Assessment and plan: a sper cardioloy: NSTEMI type I vs. type II in the setting of severely elevated BP--214/104; however ACS cannot be ruled out. Denies recurrent symptoms since initial NTG spray. Non-specific ECG changes noted. [facility] 02/2016: successful PTCA/PRANAV to prox-mid LAD; 60% stenosis OM1, 30% pRCA, 70 % dRCA. Recently started on long-acting nitrate as outpatient for stable angina-- reports significant improvement in symptoms. Discussed medical management vs. [facility]; patient elects to trial of medical therapy with close outpatient follow-up. Imdur increased to 90 mg this AM d/t recurrent angina overnight--continue to increase as BP will tolerate. Recommend LHC due to continued symptoms; however she has no interest in C at this time. Heparin has infused >24 hours, has been d/c. Limited echo shows preserved LV function, EF 55%, normal wall motion. Continue DAPT (asa + plavix), betablocker, statin, and nitrates. Risk factor modification emphasized including smoking cessation. (3) CAD (coronary artery disease) Current Visit: No Status: Chronic Qualifiers: Coronary Disease-Associated Artery/Lesion type: [place] artery [place] vs. transplanted heart: galena heart Associated angina: without angina Qualified Code(s): I25.10 - Atherosclerotic heart disease of [place] coronary artery without angina pectoris (4) CHF (congestive heart failure) Current Visit: No Status: Chronic Assessment and plan: Hx of diastolic CHF, EF preserved per most recent TTE in February 2016. Appears euvolemic upon exam, continue home medications. Severely elevated HTN upon admission, now controlled. 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 currently stable tanesha continue home meds. Qualifiers: COPD type: unspecified COPD Qualified Code(s): J44.9 - Chronic obstructive pulmonary disease, unspecified (6) Diabetes mellitus Current Visit: No Status: Chronic Qualifiers: Diabetes mellitus type: type 2 Diabetes mellitus complication status: with hyperglycemia Diabetes mellitus nursing home insulin use: without nursing home use Qualified Code(s): E11.65 - Type 2 diabetes mellitus with hyperglycemia (7) Dyslipidemia Current Visit: No Status: Chronic (8) HTN (hypertension) Current Visit: No Status: Chronic Qualifiers: Hypertension type: essential hypertension Qualified Code(s): I10 - Essential (primary) hypertension (9) RICHIE (obstructive sleep apnea) Current Visit: No Status: Chronic Assessment and plan: patient states she is compliant with her CPAP at home. Consult to respiratory therapy to manage CPAP- qHS and when napping. - Subjective Interval history: Patient seen at the bedside. sHe reports that she had chest pain occurred in the morning, and was given 1 dose of nitroglycerin which took care of the chest pain. Currently chest pain-free, no shortness of breath palpitation. Cardiology signed off today. Increased the dose of Imdur to 90 mg today. - Constitutional Vitals: Temp Pulse Resp BP Pulse Ox 98.1 F 72 16 145/69 98 08/13/16 11:19 08/13/16 11:19 08/13/16 11:19 08/13/16 11:19 08/13/16 11:19 General appearance: Present: A&O X 3, no acute distress, answers questions appropriately Exam: General appearance: Present: A&O X 3, no acute distress, answers questions appropriately - Head Head exam: Present: atraumatic, normocephalic - Eye Eye exam: Present: PERRL Pupils: Present: PERRL - Neck Neck exam general surgery: Present: supple, trachea midline. Absent: lymphadenopathy - Respiratory Respiratory exam: Present: decreased breath sounds - Cardiovascular Cardiovascular exam: Present: RRR, +S1, +S2 - GI/Abdominal GI/Abdominal exam: Present: soft, nontender, bowel sounds are present. Additional comments: midline scar present from aortic bypass surgery. - Extremities Exam Extremities exam: Absent: cyanotic, pedal edema - Back Exam Additional comments: two scars present from cyst removal. - Neurological Exam Neurological exam: Present: alert, oriented X3, no focal deficits Internal Medicine: Result - Labs CBC & Chem 7: 08/13/16 00:14 08/13/16 00:14 Labs: Short CBC 08/13/16 Range/Units 00:14 WBC 9.6 (4.3-11.1) K/mcL Hgb 10.0 L (11.5-15.4) g/dL Hct 31.9 L (35.3-44.9) % Plt Count 272 (140-400) K/mcL BMP 08/13/16 00:14 Sodium 142 Potassium 4.2 Chloride 107 Carbon Dioxide 24 BUN 15 Creatinine 0.94 Glucose 146 H Calcium 9.2 Cardiac Enzymes 08/12/16 08/13/16 Range/Units 16:58 00:14 Troponin I 0.14 H* 0.12 H* (0-0.03) ng/mL Urine 08/12/16 Range/Units 18:45 Urine Color Yellow (Yellow) Urine Clarity Clear (Clear) Urine pH 7.0 (5.0-8.0) pH Units Ur Specific Round O 1.006 L (1.010-1.025) Urine Protein Negative (Neg-Trace) mg/dL Urine Glucose (UA) Normal (Normal) mg/dL - ABG Interpretation ABG results: PT/INR, D-dimer PT 11.5 Seconds (9.4-12.1) 08/13/16 00:14 Consult Discharge Plan - Plan Referrals: Kiel Fisher DO [Primary Care Provider] - 08/20/16 8:45 am (Please follow up as schedule...)
--- NOTE | 2016-08-13 14:55 | Electrocardiograph Report ---
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
--- NOTE | 2016-08-13 15:13 | Electrocardiograph Report ---
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
--- NOTE | 2016-08-13 15:30 | Electrocardiograph Report ---
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
[2016-08-13] MEDS: Gabapentin 400 MG CAPSULE PO SCH ×2 (16:07→20:28)
[2016-08-13] MEDS: Nitroglycerin 0.4 MG TAB.SUBL SL PRN ×2 (22:52→23:44)
[2016-08-13] MEDS ORDERED: *HR* Labetalol 20 MG/4 ML SYRINGE IVP STA (23:17)
--- NOTE | 2016-08-14 00:43 | Event Note ---
Date of Encounter: 08/14/16 Time of Encounter: 23:30 On-Call Hospitalist Note: I was called to evaluate the pt due to chest pain. She reported ache in the midsternal area, 8/10 in severity, similar in character to her presenting chest pain. Reports pinching over her right arm. Chest Pain improved with nitroglycerin. She was noted to be hypertensive, with BP of 180/92; 193/89. Had another episode of chest pain, after she received labetolol for Hypertension. Stat EKG shows T wave inversion in the lateral leads, no acute changes. Plan: Start lovenox 1 mg/Kg Q12H (Heparin was discontinued in the AM; continue aspirin. Recheck troponin. NPO after midnight, for possible cardiac w/u. Will consider nitroglycerine drip, if the pt has further chest pain. Restart home dose of amlodipine for HTN.
[2016-08-14] MEDS: amLODIPine 5 MG TABLET PO SCH ×2 (01:00→08:12)
[2016-08-14] MEDS: *HR* Enoxaparin 100 MG/ML SYRINGE SQ SCH ×2 (01:01→05:53)
[2016-08-14] MEDS: Ipratropium/Albuterol Neb 3 ML IH SCH ×4 (04:06→22:28)
[2016-08-14 05:22] LABS: Hematocrit 30.7 % (35.3-44.9); Hemoglobin 9.6 g/dL (11.5-15.4); Mean Corpuscular HGB Conc 31.3 g/dL (31.6-35.5); Mean Corpuscular Hemoglobin 24.6 pg (28.0-33.3); Mean Corpuscular Volume 78.7 fL (83.0-100.0); Mean Platelet Volume 9.4 fL (9.4-12.4); Platelet Count 258 K/mcL (140-400); Red Cell Distribution Width 16.6 % (11.5-14.5)
[2016-08-14 05:28] LABS: Prothrombin Time 10.9 Seconds (9.4-12.1)
[2016-08-14] MEDS: Insulin LISPRO 300 UNITS/3 ML VIAL SQ SCH ×4 (08:09→20:34)
[2016-08-14] MEDS: Isosorbide MONOnitrate (24 HR) 60 MG TAB.ER.24H PO SCH (08:11)
[2016-08-14] MEDS: Aspirin 81 MG TAB.CHEW PO SCH (08:11)
[2016-08-14] MEDS: Nicotine 21 MG PATCH.TD24 TD SCH (08:12)
[2016-08-14] MEDS: Gabapentin 400 MG CAPSULE PO SCH ×3 (08:12→20:33)
[2016-08-14] MEDS: Lisinopril 20 MG TABLET PO SCH (08:12)
[2016-08-14] MEDS: clonazePAM 0.5 MG TABLET PO SCH ×3 (08:12→20:33)
[2016-08-14] MEDS ORDERED: Isosorbide MONOnitrate (24 HR) 60 MG TAB.ER.24H PO SCH (09:10)
[2016-08-14] MEDS ORDERED: Isosorbide MONOnitrate (24 HR) 30 MG TAB.ER.24H PO ONE (09:36)
--- NOTE | 2016-08-14 14:45 | Internal Med Progress Note ---
Date of Encounter: 08/14/16 Time of Encounter: 14:43 - Assessment and plan (1) HTN (hypertension) Current Visit: No Status: Chronic Assessment and plan: Is noted to have uncontrolled hypertension last night systolic blood pressure at 180s. Was given 1 dose of labetalol IV. This was accompanied by recurrent chest pain, which was later relieved by nitroglycerin. This morning she got all her antihypertensives at the same time which resulted in lowering the blood pressure significantly. We will adjust timings of her blood pressure medications today. Continue to monitor the blood pressure for today. Qualifiers: Hypertension type: essential hypertension Qualified Code(s): I10 - Essential (primary) hypertension (2) Anemia Current Visit: Yes Status: Acute Assessment and plan: Hg measured at 10.3 possible iron deficiency anemia. Her baseline Hg is around 12. iron panel shows low tsat and iron levels. started oral ferrous sulfate. TSH, B12 and folate are within normal limits. Qualifiers: Anemia type: unspecified type Qualified Code(s): D64.9 - Anemia, unspecified (3) NSTEMI (non-ST elevated myocardial infarction) Current Visit: No Status: Acute Assessment and plan: NSTEMI type I vs. type II in the setting of severely elevated BP--214/104; however ACS cannot be ruled out. Non-specific ECG changes noted. [facility] 02/2016: successful PTCA/PRANAV to prox-mid LAD; 60% stenosis OM1, 30% pRCA, 70 % dRCA. . Discussed medical management vs. [facility]; patient elects to trial of medical therapy with close outpatient follow-up. however has had multiple recurrent episodes of chest pain, last one last night when she had accelerated HTN. seen by cardio and Recommend [facility] due to continued symptoms; however she has no interest in [facility] at this time. Heparin has infused >24 hours, has been d/c. Limited echo shows preserved LV function, EF 55%, normal wall motion. Continue DAPT (asa + plavix), betablocker, statin, and nitrates. have further increased imdur to 120 mg today. will stop the lovenox. Risk factor modification emphasized including smoking cessation. she still wants to continue the medical management, last night's episode may be 2/2 aceelerated HTN. (4) CAD (coronary artery disease) Current Visit: No Status: Chronic Qualifiers: Coronary Disease-Associated Artery/Lesion type: [place] artery [place] vs. transplanted heart: [place] heart Associated angina: without angina Qualified Code(s): I25.10 - Atherosclerotic heart disease of [place] coronary artery without angina pectoris (5) CHF (congestive heart failure) Current Visit: No Status: Chronic Assessment and plan: Hx of diastolic CHF, EF preserved per most recent TTE in February 2016. Appears euvolemic upon exam, continue home medications. Severely elevated HTN upon admission, now controlled. 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 currently stable tanesha continue home meds. Qualifiers: COPD type: unspecified COPD Qualified Code(s): J44.9 - Chronic obstructive pulmonary disease, unspecified (7) Diabetes mellitus Current Visit: No Status: Chronic Qualifiers: Diabetes mellitus type: type 2 Diabetes mellitus complication status: with hyperglycemia Diabetes mellitus intermediate insulin use: without termite exterminator use Qualified Code(s): E11.65 - Type 2 diabetes mellitus with hyperglycemia (8) Dyslipidemia Current Visit: No Status: Chronic (9) RICHIE (obstructive sleep apnea) Current Visit: No Status: Chronic Assessment and plan: patient states she is compliant with her CPAP at home. Consult to respiratory therapy to manage CPAP- qHS and when napping. - Time Spent With Patient 25 - 35 minutes - Subjective Interval history: Patient seen at the bedside. sHe reports that she had chest pain occurred at nighttime, and was given 1 dose of nitroglycerin . She also had accelerated hypertension at night for which she was given 1 dose of IV labetalol. She was also started on Lovenox for possible ACS. Currently chest pain-free, no shortness of breath palpitation. Cardiology has signed off. - Constitutional Vitals: Temp Pulse Resp BP Pulse Ox 98.1 F 64 20 90/51 99 08/14/16 10:00 08/14/16 10:00 08/14/16 10:29 08/14/16 10:08/14/16 10:29 General appearance: Present: A&O X 3, no acute distress, answers questions appropriately Exam: General appearance: Present: A&O X 3, no acute distress, answers questions appropriately - Head Head exam: Present: atraumatic, normocephalic - Eye Eye exam: Present: PERRL Pupils: Present: PERRL - Neck Neck exam general surgery: Present: supple, trachea midline. Absent: lymphadenopathy - Respiratory Respiratory exam: Present: decreased breath sounds - Cardiovascular Cardiovascular exam: Present: RRR, +S1, +S2 - GI/Abdominal GI/Abdominal exam: Present: soft, nontender, bowel sounds are present. Additional comments: midline scar present from aortic bypass surgery. - Extremities Exam Extremities exam: Absent: cyanotic, pedal edema - Back Exam Additional comments: two scars present from cyst removal. - Neurological Exam Neurological exam: Present: alert, oriented X3, no focal deficits Internal Medicine: Result - Labs CBC & Chem 7: 08/14/16 05:04 08/13/16 00:14 Labs: Short CBC 08/14/16 Range/Units 05:04 WBC 8.8 (4.3-11.1) K/mcL Hgb 9.6 L (11.5-15.4) g/dL Hct 30.7 L (35.3-44.9) % Plt Count 258 (140-400) K/mcL Cardiac Enzymes 08/14/16 Range/Units 05:04 Troponin I 0.10 H* (0-0.03) ng/mL - ABG Interpretation ABG results: PT/INR, D-dimer PT 10.9 Seconds (9.4-12.1) 08/14/16 05:04 Consult Discharge Plan - Plan Referrals: Blayne Cheng DO [Partnered Physician] - 08/20/16 12:45 pm Kiel Fisher DO [Primary Care Provider] - 08/20/16 8:45 am (Please follow up as schedule...)
--- NOTE | 2016-08-14 14:58 | Electrocardiograph Report ---
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
[2016-08-14] MEDS: *HR* OxyCODONE Immed Rel 5 MG TABLET PO PRN (19:40)
[2016-08-15] MEDS: Ipratropium/Albuterol Neb 3 ML IH SCH ×2 (04:13→11:44)
[2016-08-15] MEDS: *HR* OxyCODONE Immed Rel 5 MG TABLET PO PRN (04:44)
[2016-08-15] MEDS: Mag Hydrox/Al Hydrox/Simeth 30 ML UDC PO PRN (04:44)
[2016-08-15 06:23] LABS: Hematocrit 34.4 % (35.3-44.9); Hemoglobin 10.4 g/dL (11.5-15.4); Mean Corpuscular HGB Conc 30.2 g/dL (31.6-35.5); Mean Corpuscular Hemoglobin 23.7 pg (28.0-33.3); Mean Corpuscular Volume 78.5 fL (83.0-100.0); Mean Platelet Volume 9.5 fL (9.4-12.4); Platelet Count 270 K/mcL (140-400); Red Blood Count 4.38 M/mcL (3.82-4.97); Red Cell Distribution Width 16.7 % (11.5-14.5)
[2016-08-15 06:26] LABS: INR 1.1; Prothrombin Time 11.4 Seconds (9.4-12.1)
[2016-08-15] MEDS: Insulin LISPRO 300 UNITS/3 ML VIAL SQ SCH ×2 (08:27→12:03)
[2016-08-15] MEDS: Gabapentin 400 MG CAPSULE PO SCH (08:29)
[2016-08-15] MEDS: clonazePAM 0.5 MG TABLET PO SCH (08:29)
[2016-08-15] MEDS: Aspirin 81 MG TAB.CHEW PO SCH (08:29)
[2016-08-15] MEDS: Nicotine 21 MG PATCH.TD24 TD SCH (08:29)
--- NOTE | 2016-08-15 08:38 | Discharge Summary ---
Date of Encounter: 08/15/16 Time of Encounter: 08:33 - Discharge Diagnosis (1) HTN (hypertension) Priority: Secondary Status: Chronic Qualifiers: Hypertension type: essential hypertension Qualified Code(s): I10 - Essential (primary) hypertension (2) Anemia Priority: Secondary Status: Acute Qualifiers: Anemia type: unspecified type Qualified Code(s): D64.9 - Anemia, unspecified (3) NSTEMI (non-ST elevated myocardial infarction) Priority: Primary Status: Acute (4) CAD (coronary artery disease) Priority: Primary Status: Chronic Qualifiers: Coronary Disease-Associated Artery/Lesion type: [place] artery [place] vs. transplanted heart: [place] heart Associated angina: without angina Qualified Code(s): I25.10 - Atherosclerotic heart disease of [place] coronary artery without angina pectoris (5) CHF (congestive heart failure) Priority: Secondary Status: Chronic Qualifiers: Congestive heart failure type: diastolic Congestive heart failure chronicity: chronic Qualified Code(s): I50.32 - Chronic diastolic (congestive ) heart failure (6) COPD (chronic obstructive pulmonary disease) Priority: Secondary Status: Chronic Qualifiers: COPD type: unspecified COPD Qualified Code(s): J44.9 - Chronic obstructive pulmonary disease, unspecified (7) Diabetes mellitus Priority: Secondary Status: Chronic Qualifiers: Diabetes mellitus type: type 2 Diabetes mellitus complication status: with hyperglycemia 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 jail use Qualified Code(s): E11.65 - Type 2 diabetes mellitus with hyperglycemia (8) Dyslipidemia Priority: Secondary Status: Chronic (9) RICHIE (obstructive sleep apnea) Priority: Secondary Status: Chronic - Discharge Medications Prescriptions: Ferrous Sulfate 325 mg PO BIDWM #60 tablet Isosorbide MONOnitrate (24 HR) [Imdur] 120 mg PO DAILY #120 tab.er.24h Lisinopril [Zestril] 40 mg PO DAILY #60 tablet Nicotine Patch [Nicoderm] 21 mg TD DAILY #10 patch.td24 Simethicone [Gas Relief] 125 mg PO QID 30 Days Home Medications: Aspirin [Lo-Dose Aspirin EC] 81 mg PO DAILY 02/18/16 [History] Carvedilol [Coreg] 25 mg PO BID 02/18/16 [History] ClonazePAM [Clonazepam] 0.5 mg PO BID 02/18/16 [History] Ergocalciferol (VITAMIN D2) [Vitamin D2 (50,000 UNIT)] 50,000 unit PO QWEEK [History] Furosemide [Lasix] 40 mg PO TID 02/18/16 [History] Gabapentin [Neurontin] 400 mg PO TID 02/18/16 [History] Metformin [Glucophage] 500 mg PO BID 02/18/16 [History] Nitroglycerin 0.4 mg SL Q5MIN PRN 02/18/16 [History] Pantoprazole Sodium 40 mg PO DAILY 02/18/16 [History] Potassium Chloride [K-Tab ER] 10 meq PO BID 02/18/16 [History] Amlodipine [Norvasc] 10 mg PO DAILY #30 tablet 02/27/16 [Rx] Atorvastatin [Lipitor] 80 mg PO HS #30 tablet 02/27/16 [Rx] Beclomethasone Diprop 80mcg [QVAR 80 mcg] 2 puff IH BIDR #1 inhaler 02/27/16 [Rx ] Clopidogrel [Plavix] 75 mg PO DAILY #30 tablet 02/27/16 [Rx] Fluticasone Propionate Nasal [Flonase] 100 mcg NS DAILY #1 bottle 02/27/16 [Rx] Tiotropium [Spiriva] 18 mcg IH DAILYR inh 03/07/16 [Rx] Ferrous Sulfate 325 mg PO BIDWM #60 tablet 08/15/16 [Rx] Isosorbide MONOnitrate (24 HR) [Imdur] 120 mg PO DAILY #120 tab.er.24h 08/15/16 [Rx] Lisinopril [Zestril] 40 mg PO DAILY #60 tablet 08/15/16 [Rx] Nicotine Patch [Nicoderm] 21 mg TD DAILY #10 patch.td24 08/15/16 [Rx] Simethicone [Gas Relief] 125 mg PO QID 30 Days 08/15/16 [Rx] Allergies/Adverse Reactions: Allergies acetaminophen [From Vicodin] Allergy (Verified 07/12/15 08:51) Hives hydrocodone [From Vicodin] Allergy (Verified 07/12/15 08:51) Hives budesonide [From Symbicort] Adverse Reaction (Verified 02/20/16 08:46) Cough Formoterol [From Symbicort] Adverse Reaction (Verified 02/20/16 08:46) Cough Procedures/tests Complete & Pending: Procedures Performed prior 72 hours Category Date Time Status ECG 12 lead ECG [ECG] Routine Y 08/12/16 18:56 Completed ECG 12 lead ECG [ECG] Routine Y 08/13/16 07:00 Completed EKG [ECG 12 lead ECG] [ECG] Stat Y 08/12/16 22:00 Completed EKG [ECG 12 lead ECG] [ECG] Stat Y 08/13/16 23:17 Completed EV limited echocardiogram Routine Y 08/12/16 09:28 Completed Date of admission: 08/12/16 06:11 Primary care physician: Kiel Fisher Consults: 08/12/16 04:04 Consult to Cardiac Rehabilitation-Phase1 [CONS] Routine Comment: Reason for Consult: AMI Call Completed: Yes Consult to Nurse Navigator [CONS] Routine Comment: 08/12/16 05:12 Consult to Respiratory Therapy [CONS] Stat Reason for Consult: CPAP management. Patient wears CPAP at home. Call Completed: No 08/12/16 08:00 Consult to Cardiology [CONS] Routine Comment: Consulting Provider: Jyoti Dueñas Reason for Consult: Patient with multiple cardiovascular risk factors and KNOWN CAD/PTCA STENTx1 FEBRUARY 2016 PRESENTS WITH ACS/UA/NSTEMI. These evaluate and advise. Time Notified: 04:12 Call Completed: No Discharging clinician: Ayiln Talbert Anticipated date of discharge: 08/15/16 - Patient Status Disposition: Home, Self-Care Condition: Fair Functional capacity at discharge: independent ambulation Overall status at discharge: patient is back to baseline - Discharge Instructions Instructions: Heart Failure (DC), Diabetes Mellitus Type 2 in Adults (DC), Chronic Obstructive Pulmonary Disease (DC), Chronic Hypertension (DC) Follow Up With: Blayne Cheng DO [Partnered Physician] - 08/20/16 12:45 pm Kiel Fisher DO [Primary Care Provider] - 08/20/16 8:45 am (Please follow up as schedule...) - Diet and Activity Activity: resume usual activities as tolerated (avoid exertion) Diet: other (cardiac diet) Interval History: Ms. Ferguson is a 56 year old female with PMH significant for CAD s/p PCI, HTN, HLD, RICHIE, end-stage COPD dependent on home oxygen who presented to [facility] ED with 2-hr duration of chest pain. Pain was alleviated with x2 NTG spray administered by EMS. Reports chest discomfort with radiation to bilateral arms started while she was watching TV on the couch--she took her BP and it was 214/ 104. Initial troponin 0.21--she was transferred to [facility] for further evaluation. Upon arrival to [facility], troponin was 0.13. Non-specific ECG changes noted. Recently started on Imdur as outpatient which has significantly improved stable angina symptoms at home. Prior CV testing includes: LHC 02/26/16: PTCA/PRANAV to prox-mid LAD; EF 55%; otherwise moderate-severe CAD (60% OM1, 30% pRCA, 70% dRCA). TTE 02/18/16: LVEF 50%; moderate LV diastolic dysfunction. Nuclear stress 07/2015:LVEF 32%, mild TID, moderate apical inferior ischemia TTE 10/10/2014: EF 45%. Mild concentric LVH. Holter monitor 02/15/2014: Normal sinus rhythm with rare PACs and PVCs. Non exercise, nuclear stress test 09/2011: Negative for ischemia. [facility] 2005: Report indicates mild disease involving the LAD (30%). she was admitted for NSTEMI. cardiology was consulted. Limited echo shows preserved LV function, EF 55%, normal wall motion. Continued on DAPT (asa + plavix), betablocker, statin, and nitrates. She refused to undergo LHC and wanted to continue with medical management. Her dose of imdur has been increased to 120 mg daily she is being dc today in stable condition and will f/u with DR. cheng as OP. Hospital course: Ms. Ferguson is a 56 year old female Time spent discussing smoking cessation with patient: more than 10 minutes - Time Spent with Patient Total time spent providing and/or coordinating discharge services: Greater than 30 minutes - Constitutional Vitals: Temp Pulse Resp BP Pulse Ox 98.1 F 79 18 174/85 98 08/15/16 08:19 08/15/16 08:19 08/15/16 08:19 08/15/16 08:19 08/15/16 08:19 General appearance: Present: A&O X 3, no acute distress, answers questions appropriately Exam: General: Conversant, No Apparent Distress HEENT: Atraumatic, Normocephaly, Mucus Membranes Moist Cardiac: Reg Rate and Rhythm, Normal S1 and S2 Lungs: b/l clear Neuro: Alert and responsive Abdomen: Soft Skin: No rashes noted on visualized skin Musculoskeletal: No Chest Wall Tenderness Extremities: No Edema, Normal Pulses - VTE Documentation of Mechanical Device: Intermittent pneumatic compression device
[2016-08-15] MEDS ORDERED: amLODIPine 5 MG TABLET PO SCH (09:00)
[2016-08-15 11:38] VITALS: BP 174/83
[2016-08-15] MEDS ORDERED: Isosorbide MONOnitrate (24 HR) 60 MG TAB.ER.24H PO SCH (14:00)
[2016-08-15] MEDS ORDERED: Lisinopril 20 MG TABLET PO SCH (18:00)
== END 2016-08-15 13:55 | disposition home or self-care (01) | DRG 281 ==
LOC: 2ANU → SUATTDRO 06:11
PROVIDERS: ADMIT Internal Medicine; ATTEND Internal Medicine Endocrinology, Diabetes & Metabolism

== ENCOUNTER 2016-08-15 20:35 | Inpatient (IN) ==
[2016-08-15] MEDS ORDERED: Ondansetron 4 MG/2 ML VIAL IV ONE (21:11)
[2016-08-15] MEDS ORDERED: *HR* Morphine 2 MG/ML SYRINGE IV ONE ×2 (21:11→22:20)
[2016-08-15 21:18] LABS: Basophils # 0.1 K/mcL (0.0-0.2); Basophils % 0.4 %; Eosinophils # 0.3 K/mcL (0.0-0.6); Eosinophils % 2.1 %; Hematocrit 38.4 % (35.3-44.9); Hemoglobin 11.9 g/dL (11.5-15.4); Immature Granulocytes % 0.9 % (0-4); Lymphocytes # 1.6 K/mcL (0.6-4.6); Lymphocytes % 13.1 %; Mean Corpuscular Hemoglobin 23.8 pg (28.0-33.3); Mean Corpuscular Volume 76.6 fL (83.0-100.0); Mean Platelet Volume 9.4 fL (9.4-12.4); Monocytes # 0.6 K/mcL (0.0-1.3); Monocytes % 5.1 %; Platelet Count 307 K/mcL (140-400); Red Blood Count 5.01 M/mcL (3.82-4.97); Red Cell Distribution Width 16.5 % (11.5-14.5); Segmented Neutrophils % 78.4 %
[2016-08-15 21:20] LABS: Neutrophils # 9.6 K/mcL (1.6-8.9)
[2016-08-15 21:22] LABS: INR 1.1; Prothrombin Time 11.6 Seconds (9.4-12.1)
[2016-08-15 21:25] LABS: Activated Partial Thrombo Time 31.1 Seconds (26.0-36.0)
[2016-08-15 21:30] LABS: BUN/Creatinine Ratio 18 (6-26); Blood Urea Nitrogen 16 mg/dL (7-20); Carbon Dioxide 23 mEq/L (19-29); Chloride 102 mEq/L (98-109); Glucose 182 mg/dL (70-99); Osmolality,Calculated 292 (280-300); Potassium 4.6 mEq/L (3.5-4.5); Sodium 138 mEq/L (136-145); eGFR For African Americans > 60 (> 60); eGFR For Non-African Americans > 60 (> 60)
--- NOTE | 2016-08-15 22:18 | Emergency Department Note ---
Disposition Clinical Impression: Unstable angina pectoris Disposition: Admitted As Inpatient Condition: Fair Referrals: Kiel Fisher DO [Primary Care Provider] - Forms: ED Satisfaction Letter Chest Pain HPI - General Chief Complaint: ED Chest Pain Stated Complaint: chest pain Source: patient, EMS Mode of arrival: ambulatory Limitations: no limitations Vital Signs Reviewed: Yes Nursing Notes Reviewed: Yes - History of Present Illness HPI Narrative: She is a 56-year-old female who was discharged today with a N STEMI returns again for chest pain. She states she was having some substernal chest pressure and elevated blood pressure 200 systolic and felt like she was having a heart attack it was radiating into her jaw and called 911. She was discharged today they recommended left heart catheterization today she refused she states now that something has to be done and will agree on heart catheterization Pt complaint: chest pain Onset (ago): hour(s) (2) Duration: constant Onset: during rest Pain Location: substernal Severity scale (1-10): 2 Quality: heaviness Pain Radiation: none Improves with: nitroglycerin Worsens with: nothing Associated symptoms: Denies: nausea, vomiting, diaphoresis Treatments prior to arrival chest pain: aspirin, nitroglycerin, oxygen - Related Data Home Medications Medication Instructions Recorded Confirmed Aspirin [Lo-Dose Aspirin EC] 81 mg PO DAILY 02/18/16 08/12/16 Carvedilol [Coreg] 25 mg PO BID 02/18/16 08/12/16 ClonazePAM [Clonazepam] 0.5 mg PO BID 02/18/16 08/12/16 Ergocalciferol (VITAMIN D2) 50,000 unit PO QWEEK 02/18/16 08/12/16 [Vitamin D2 (50,000 UNIT)] Furosemide [Lasix] 40 mg PO TID 02/18/16 08/12/16 Gabapentin [Neurontin] 400 mg PO TID 02/18/16 08/12/16 Metformin [Glucophage] 500 mg PO BID 02/18/16 08/12/16 Nitroglycerin 0.4 mg SL Q5MIN PRN 02/18/16 08/12/16 Pantoprazole Sodium 40 mg PO DAILY 02/18/16 08/12/16 Potassium Chloride [K-Tab ER] 10 meq PO BID 02/18/16 08/12/16 Previous Rx's Medication Instructions Recorded Amlodipine [Norvasc] 10 mg PO DAILY #30 tablet 02/27/16 Atorvastatin [Lipitor] 80 mg PO HS #30 tablet 02/27/16 Beclomethasone Diprop 80mcg [QVAR 2 puff IH BIDR #1 inhaler 02/27/16 80 mcg] Clopidogrel [Plavix] 75 mg PO DAILY #30 tablet 02/27/16 Fluticasone Propionate Nasal 100 mcg NS DAILY #1 bottle 02/27/16 [Flonase] Tiotropium [Spiriva] 18 mcg IH DAILYR inh 03/07/16 Ferrous Sulfate 325 mg PO BIDWM #60 tablet 08/15/16 Isosorbide MONOnitrate (24 HR) 120 mg PO DAILY #120 tab.er.24h 08/15/16 [Imdur] Lisinopril [Zestril] 40 mg PO DAILY #60 tablet 08/15/16 Nicotine Patch [Nicoderm] 21 mg TD DAILY #10 patch.td24 08/15/16 Simethicone [Gas Relief] 125 mg PO QID 30 Days 08/15/16 Allergies Allergy/AdvReac Type Severity Reaction Status Date / Time acetaminophen [From Vicodin] Allergy Hives Verified 07/12/15 08:51 hydrocodone [From Vicodin] Allergy Hives Verified 07/12/15 08:51 budesonide [From Symbicort] AdvReac Cough Verified 02/20/16 08:46 Formoterol [From Symbicort] AdvReac Cough Verified 02/20/16 08:46 All systems ED: reviewed and negative except as stated. Constitutional: Denies: fever, chills Respiratory: Denies: cough, dyspnea Gastrointestinal: Denies: nausea Chest Pain PMH - Past Medical History Medical history: Reports: CHF, COPD, coronary artery disease, diabetes, hyperlipidemia, hypertension, myocardial infarction, peripheral artery disease Surgical history: Reports: angioplasty/stent, hysterectomy, other (A[place]o femoral bypass) Psychiatric history: Reports: anxiety - Social History Smoking Status: Former smoker Alcohol use: Reports: none Drug use: Reports: none Physical Exam - General Limitations: no limitations General appearance: alert, in no apparent distress Course Vital Signs Temperature 98.1 F 08/15/16 20:38 Pulse Rate 98 08/15/16 20:38 Respiratory Rate 16 08/15/16 20:38 Blood Pressure 190/98 08/15/16 20:38 O2 Sat by Pulse Oximetry 99 08/15/16 20:38 Temperature 98.1 F 08/15/16 20:38 Pulse Rate 82 08/15/16 21:30 Respiratory Rate 16 08/15/16 21:30 Blood Pressure 168/79 08/15/16 21:30 O2 Sat by Pulse Oximetry 98 08/15/16 21:30 Oxygen Delivery Oxygen Delivery Room Air Chest Pain - Differential Diagnosis Likely: stable angina, unstable angina pectoris, atypical chest pain, chest pain - Medical Records Medical records reviewed: Yes I reviewed the patient's medical records. - Lab Data Lab results reviewed: Yes I reviewed the patient's lab results. Result diagrams: 08/15/16 20:57 08/15/16 20:57 Lab Results 08/15/16 08/15/16 08/15/16 Range/Units 20:57 20:57 20:57 WBC 12.2 H D (4.3-11.1) K/mcL RBC 5.01 H (3.82-4.97) M/mcL Hgb 11.9 D (11.5-15.4) g/dL Hct 38.4 (35.3-44.9) % MCV 76.6 L (83.0-100.0) fL MCH 23.8 L (28.0-33.3) pg MCHC 31.0 L (31.6-35.5) g/dL RDW 16.5 H (11.5-14.5) % Plt Count 307 (140-400) K/mcL MPV 9.4 (9.4-12.4) fL Immature Gran % 0.9 (0-4) % Seg Neutrophils % 78.4 % Lymphocytes % 13.1 % Monocytes % 5.1 % Eosinophils % 2.1 % Basophils % 0.4 % Neutrophils # 9.6 H (1.6-8.9) K/mcL Lymphocytes # 1.6 (0.6-4.6) K/mcL Monocytes # 0.6 (0.0-1.3) K/mcL Eosinophils # 0.3 (0.0-0.6) K/mcL Basophils # 0.1 (0.0-0.2) K/mcL PT 11.6 (9.4-12.1) Seconds INR 1.1 APTT 31.1 D (26.0-36.0) Seconds Sodium 138 (136-145) mEq/L Potassium 4.6 H (3.5-4.5) mEq/L Chloride 102 (98-109) mEq/L Carbon Dioxide 23 (19-29) mEq/L BUN 16 (7-20) mg/dL Creatinine 0.89 (0.57-1.11) mg/dL Est GFR ( Amer) > 60 (> 60) Est GFR (Non-Af Amer) > 60 (> 60) BUN/Creatinine Ratio 18 (6-26) Glucose 182 H (70-99) mg/dL Calculated Osmolality 292 (280-300) Calcium 10.0 (8.6-10.8) mg/dL Troponin I (0-0.03) ng/mL 08/15/16 Range/Units 20:57 WBC (4.3-11.1) K/mcL RBC (3.82-4.97) M/mcL Hgb (11.5-15.4) g/dL Hct (35.3-44.9) % MCV (83.0-100.0) fL MCH (28.0-33.3) pg MCHC (31.6-35.5) g/dL RDW (11.5-14.5) % Plt Count (140-400) K/mcL MPV (9.4-12.4) fL Immature Gran % (0-4) % Seg Neutrophils % % Lymphocytes % % Monocytes % % Eosinophils % % Basophils % % Neutrophils # (1.6-8.9) K/mcL Lymphocytes # (0.6-4.6) K/mcL Monocytes # (0.0-1.3) K/mcL Eosinophils # (0.0-0.6) K/mcL Basophils # (0.0-0.2) K/mcL PT (9.4-12.1) Seconds INR APTT (26.0-36.0) Seconds Sodium (136-145) mEq/L Potassium (3.5-4.5) mEq/L Chloride (98-109) mEq/L Carbon Dioxide (19-29) mEq/L BUN (7-20) mg/dL Creatinine (0.57-1.11) mg/dL Est GFR ( Amer) (> 60) Est GFR (Non-Af Amer) (> 60) BUN/Creatinine Ratio (6-26) Glucose (70-99) mg/dL Calculated Osmolality (280-300) Calcium (8.6-10.8) mg/dL Troponin I 0.07 H* (0-0.03) ng/mL - Radiology Data Radiology results reviewed: Yes I reviewed the patient's radiology results. - EKG Data EKG attestation: Yes I reviewed and interpreted this EKG. EKG shows normal: sinus rhythm Rate: normal Rhythm: NSR ST segment depression in: v4, v6 T wave inversions noted in: v4, v5, v6
[2016-08-15] MEDS ORDERED: *HR* Enoxaparin 80 MG/0.8 ML SYRINGE SQ STA (22:20)
[2016-08-15] MEDS ORDERED: Nitroglycerin 25 MG/250 ML INFUS..BTL IVC SCH (22:45)
--- NOTE | 2016-08-16 01:16 | Event Note ---
Date of Encounter: 08/16/16 Time of Encounter: 01:13 Agency and examined with medical program specialist. Patient left against medical advice today after coronary angiogram was recommended to rule out coronary artery disease. Patient developed 15 minute episode of chest pain, shortness of breath and sweating which prompted her to come to emergency room. She took sublingual nitroglycerin with which improved her pain. She was off pain during my interview. Their electric autograph shows lateral ST segment depression and ST segment elevation in AVR. Patient will be started on full anti-ischemic medications including full dose anticoagulation. Cardiology service will be consulted. Serial cardiac markers. Telemetry monitoring. She is full code
[2016-08-16] MEDS ORDERED: *HR* Morphine 2 MG/ML SYRINGE IVP PRN (01:28)
[2016-08-16] MEDS ORDERED: Naloxone 0.4 MG/ML INJ IVP PRN (01:33)
[2016-08-16] MEDS ORDERED: Acetaminophen 325 MG TABLET PO PRN (01:33)
[2016-08-16] MEDS ORDERED: Ondansetron 4 MG/2 ML VIAL IVP PRN (01:33)
[2016-08-16] MEDS: Nitroglycerin 0.4 MG TAB.SUBL SL PRN ×3 (02:09→04:01)
--- NOTE | 2016-08-16 02:32 | Internal Med History&Physical ---
Date of Encounter: 08/16/16 Time of Encounter: 02:00 Assessment and Plan (1) NSTEMI (non-ST elevated myocardial infarction) Current visit: No Status: Acute Patient admitted to hospital with anginal chest pain similar to what she had during her last hospital admission. EKG reviewed- showed sinus rhythm with ST segment depression in inferolateral leads with T wave inversions noted. BRAYAN score: 6 Troponin levels: .07, .09 Continue to trend Q6HR. Pain control with Morphine Patient continued to have multiple episodes of chest pain with dynamic EKG changes-currently on Nitroglycerin drip. ASA, Atorvastatin, Carvedilol, Plavix Patient received 1mg/kg dose Lovenox in ED at 2311, Heparin gtt ordered to start at 1100. Consult to Cardiology for possible LHC. (2) CAD (coronary artery disease) Current visit: No Status: Chronic continue ASA, statin, Plavix. Qualifiers: Coronary Disease-Associated Artery/Lesion type: [place] artery [place] vs. transplanted heart: [place] heart Associated angina: without angina Qualified Code(s): I25.10 - Atherosclerotic heart disease of [place] coronary artery without angina pectoris (3) Anemia Current visit: No Status: Chronic Patient's Hg 11. Baseline is about 12. B12, Folate, TSH levels measured at last hospital visit were within normal limits. Last hospital visit showed low iron levels. stool occult blood pending. Consider outpatient colonoscopy. Continue home med ferrous sulfate and monitor. Qualifiers: Anemia type: iron deficiency Iron deficiency anemia type: unspecified iron deficiency Qualified Code(s): D50.9 - Iron deficiency anemia, unspecified (4) CHF (congestive heart failure) Current visit: No Status: Chronic Last echo on 08/12/16 showed LVEF 55%, normal LV systolic function and size. Normal RV size and function. Patient appears euvolemic upon exam. continue home dose lasix with potassium supplement. Continue to monitor. Qualifiers: Congestive heart failure type: diastolic Congestive heart failure chronicity: chronic Qualified Code(s): I50.32 - Chronic diastolic (congestive ) heart failure (5) COPD (chronic obstructive pulmonary disease) Current visit: No Status: Chronic DuoNeb Q6HR PRN Continue 3L oxygen, which is what the patient is on at home. Qualifiers: COPD type: unspecified COPD Qualified Code(s): J44.9 - Chronic obstructive pulmonary disease, unspecified (6) HTN (hypertension) Current visit: No Status: Chronic Continue Amlodipine Qualifiers: Hypertension type: essential hypertension Qualified Code(s): I10 - Essential (primary) hypertension (7) Tobacco use Current visit: No Status: Chronic Nicotine patch. (8) GERD (gastroesophageal reflux disease) Current visit: Yes Status: Chronic continue Prilosec. Qualifiers: Esophagitis presence: esophagitis presence not specified Qualified Code(s) : K21.9 - Gastro-esophageal reflux disease without esophagitis (9) Diabetes mellitus Current visit: No Status: Chronic Q4 HR accuchecks Low dose sliding scale insulin. Qualifiers: Diabetes mellitus type: type 2 Diabetes mellitus complication status: with unspecified complications Diabetes mellitus assisted insulin use: without assisted use Qualified Code(s): E11.8 - Type 2 diabetes mellitus with unspecified complications (10) DVT prophylaxis Current visit: No Status: Acute Patient received a dose of 1mg/kg Lovenox at ED at 2311 during Admission. Placed order for Heparin gtt to start at 1100 Internal Medicine - H&P: HPI Chief complaint: chest pain Admitted From: Emergency Dept Plans for Post Hospital Care: Home History of present illness: PCP: Kiel Fisher Ms. Ferguson is a 56 year old female with PMHx of STEMI, RICHIE (reports compliance with CPAP), HTN, PVD, CAD, CHF (Last echo on 08/12/16 showed LVEF 55%, normal LV systolic function and size. Normal RV size and function), HLD, DM2, COPD (on 3L home oxygen). Patient was recently admitted to the hospital on 08/12/16 with diagnosis of anginal chest pain/NSTEMI. She was evaluated by Cardiology and was offered a LHC but elected medical management. Patient states that she will re-consider a LHC when she talks with cardiology again. Patient was discharged from Hospital yesterday on 08/15/16. About 4-5 hours after going home, she started getting chest pain again, located in her chest that radiated down both arms, and her lower jaw. The pain is similar to what it was before her last hospital admission on 08/12. This pain was relieved when she received ASA and nitroglycerin. It started out as 9/10 and is currently 0/10 upon examination. She denies nausea, vomiting, fever, chills. Social Hx: lives by herself at home. Smokes 1/2-1 PPD. Has smoked for 42 years. Denies alcohol or illicit drug use. Family Hx: father from CHF/COPD at 81. Mother of pneumonia at 79, also had hx of uterine cancer. Surgical Hx: heart cath 2004, angioplasty 04/2014, Aorta B-femoral double bypass 05/2014, LHC with stent 03/2016, tonsillectomy, hysterectomy Past Med Surg Social Fam HX - Past Medical History Medical history: CHF, COPD, coronary artery disease, diabetes, hyperlipidemia, hypertension, myocardial infarction, peripheral artery disease Psychiatric history: anxiety - Past Surgical History Surgical History: angioplasty/stent, hysterectomy, other - Social History Smoking Status: Current every day smoker Packs per day: 1/2 Smokeless Tobacco Status: No Alcohol use: none Drug use: none - Family History Daughter Living Status: Still Living Hx Family Cardiac Disorders: Yes Hx Family Respiratory Disorders: No Hx Family Cancer: No Hx Family GI Disorders: No Hx Family Genitourinary Disorders: No Hx Family Endocrine Disorder: Yes Hx Family Musculoskeletal Disorders: No Hx Family Neuromuscular Disorders: No Hx Family Neurologic Disorders: No Hx Family HEENT Disorders: No Hx Family Autoimmune Disorders: No Hx Family Reproductive Disorders: No Hx Family Psychosocial Disorders: No Hx Family Medical Disorders: No Brother Living Status: Hx Family Cardiac Disorders: Yes Hx Family Respiratory Disorders: Yes Hx Family Cancer: Yes Hx Family GI Disorders: No Hx Family Genitourinary Disorders: No Hx Family Endocrine Disorder: Yes Hx Family Musculoskeletal Disorders: No Hx Family Neuromuscular Disorders: No Hx Family Neurologic Disorders: No Hx Family HEENT Disorders: No Hx Family Autoimmune Disorders: No Hx Family Reproductive Disorders: No Hx Family Psychosocial Disorders: No Hx Family Medical Disorders: No Son Living Status: Still Living Hx Family Cardiac Disorders: Yes (HTN) Hx Family Respiratory Disorders: Yes (Childhood Asthma) Hx Family Cancer: No Hx Family GI Disorders: No Hx Family Genitourinary Disorders: No Hx Family Endocrine Disorder: No Hx Family Musculoskeletal Disorders: No Hx Family Neuromuscular Disorders: No Hx Family Neurologic Disorders: No Hx Family HEENT Disorders: No Hx Family Autoimmune Disorders: No Hx Family Reproductive Disorders: No Hx Family Psychosocial Disorders: No Hx Family Medical Disorders: No Father Living Status: Hx Family Cardiac Disorders: No Hx Family Respiratory Disorders: Yes (COPD) Hx Family Cancer: No Hx Family GI Disorders: No Hx Family Genitourinary Disorders: No Hx Family Endocrine Disorder: No Hx Family Musculoskeletal Disorders: No Hx Family Neuromuscular Disorders: No Hx Family Neurologic Disorders: No Hx Family HEENT Disorders: No Hx Family Autoimmune Disorders: No Hx Family Reproductive Disorders: No Hx Family Psychosocial Disorders: No Hx Family Medical Disorders: No Mother Family Member Ethnicity: Non- Living Status: Hx Family Cardiac Disorders: Yes (heart attack) Hx Family Respiratory Disorders: Yes (PNE) Hx Family Cancer: Yes Hx Family GI Disorders: No Hx Family Genitourinary Disorders: No Hx Family Endocrine Disorder: No Hx Family Musculoskeletal Disorders: No Hx Family Neuromuscular Disorders: No Hx Family Neurologic Disorders: No Hx Family HEENT Disorders: No Hx Family Autoimmune Disorders: No Hx Family Reproductive Disorders: No Hx Family Psychosocial Disorders: No Hx Family Medical Disorders: No Internal Medicine - H&P: Meds Aspirin [Lo-Dose Aspirin EC] 81 mg PO DAILY 02/18/16 [History] Carvedilol [Coreg] 25 mg PO BID 02/18/16 [History] ClonazePAM [Clonazepam] 0.5 mg PO BID 02/18/16 [History] Ergocalciferol (VITAMIN D2) [Vitamin D2 (50,000 UNIT)] 50,000 unit PO QWEEK [History] Furosemide [Lasix] 40 mg PO TID 02/18/16 [History] Gabapentin [Neurontin] 400 mg PO TID 02/18/16 [History] Metformin [Glucophage] 500 mg PO BID 02/18/16 [History] Nitroglycerin 0.4 mg SL Q5MIN PRN 02/18/16 [History] Pantoprazole Sodium 40 mg PO DAILY 02/18/16 [History] Potassium Chloride [K-Tab ER] 10 meq PO BID 02/18/16 [History] Amlodipine [Norvasc] 10 mg PO DAILY #30 tablet 02/27/16 [Rx] Atorvastatin [Lipitor] 80 mg PO HS #30 tablet 02/27/16 [Rx] Beclomethasone Diprop 80mcg [QVAR 80 mcg] 2 puff IH BIDR #1 inhaler 02/27/16 [Rx ] Clopidogrel [Plavix] 75 mg PO DAILY #30 tablet 02/27/16 [Rx] Fluticasone Propionate Nasal [Flonase] 100 mcg NS DAILY #1 bottle 02/27/16 [Rx] Tiotropium [Spiriva] 18 mcg IH DAILYR inh 03/07/16 [Rx] Ferrous Sulfate 325 mg PO BIDWM #60 tablet 08/15/16 [Rx] Isosorbide MONOnitrate (24 HR) [Imdur] 120 mg PO DAILY #120 tab.er.24h 08/15/16 [Rx] Lisinopril [Zestril] 40 mg PO DAILY #60 tablet 08/15/16 [Rx] Nicotine Patch [Nicoderm] 21 mg TD DAILY #10 patch.td24 08/15/16 [Rx] Simethicone [Gas Relief] 125 mg PO QID 30 Days 08/15/16 [Rx] Allergies acetaminophen [From Vicodin] Allergy (Verified 07/12/15 08:51) Hives hydrocodone [From Vicodin] Allergy (Verified 07/12/15 08:51) Hives budesonide [From Symbicort] Adverse Reaction (Verified 02/20/16 08:46) Cough Formoterol [From Symbicort] Adverse Reaction (Verified 02/20/16 08:46) Cough All Systems PM: A 10-system review of systems was performed and is negative for pertinent findings except as documented above in the HPI. - Constitutional Constitutional: no chills, no fever(s), no falls - Cardiovascular Cardiovascular ROS IM: chest pain (original chest pain relieved with nitroglycerin and aspirin. ), no lightheadedness, no palpitations, no syncope - Neurological Neurological ROS: no headache(s) - Constitutional Vitals: Temp Pulse Resp BP Pulse Ox 98.6 F 75 14 144/63 98 08/16/16 00:09 08/16/16 00:09 08/16/16 00:09 08/16/16 00:09 08/16/16 00:09 General appearance: Present: A&O X 3, no acute distress, obese, answers questions appropriately - Head Head exam: Present: atraumatic, normocephalic - Eye Eye exam: Present: sclera anicteric - ENT ENT exam: Present: mucous membranes moist - Neck Neck exam general surgery: Present: supple, trachea midline - Respiratory Additional comments: decreased breath sounds in lower lobes bilaterally. Inspiratory and expiratory wheezing noted. - Cardiovascular Cardiovascular exam: Present: RRR, +S1, +S2 - GI/Abdominal GI/Abdominal exam: Present: hernia (mid-abdominal hernia present. ), soft, tenderness Additional comments: surgical scar present down middle of abdomen. - Extremities Exam Extremities exam: Present: normal capillary refill, radial pulses palpable and symetrical. Absent: cyanotic, pedal edema Additional comments: upper arms have white spots present bilaterally. no clubbing, cyanosis, edema noted. - Neurological Exam Neurological exam: Present: alert, oriented X3. Absent: facial droop, speech deficit - Psychiatric Psychiatric exam: Present: anxious Internal Med - H&P Results - Labs CBC & Chem 7: 08/16/16 03:19 08/16/16 03:19
[2016-08-16 03:28] LABS: Basophils % 0.4 %; Eosinophils # 0.2 K/mcL (0.0-0.6); Eosinophils % 2.2 %; Hematocrit 34.9 % (35.3-44.9); Immature Granulocytes % 0.6 % (0-4); Lymphocytes # 2.1 K/mcL (0.6-4.6); Lymphocytes % 22.1 %; Mean Corpuscular HGB Conc 31.5 g/dL (31.6-35.5); Mean Corpuscular Hemoglobin 24.2 pg (28.0-33.3); Mean Corpuscular Volume 76.7 fL (83.0-100.0); Mean Platelet Volume 8.8 fL (9.4-12.4); Monocytes # 0.5 K/mcL (0.0-1.3); Monocytes % 5.3 %; Neutrophils # 6.5 K/mcL (1.6-8.9); Platelet Count 304 K/mcL (140-400); Red Blood Count 4.55 M/mcL (3.82-4.97); Red Cell Distribution Width 16.5 % (11.5-14.5); Segmented Neutrophils % 69.4 %
[2016-08-16 03:40] LABS: BUN/Creatinine Ratio 18 (6-26); Blood Urea Nitrogen 16 mg/dL (7-20); Calcium 9.6 mg/dL (8.6-10.8); Carbon Dioxide 26 mEq/L (19-29); Chloride 104 mEq/L (98-109); Glucose 155 mg/dL (70-99); Osmolality,Calculated 294 (280-300); Potassium 4.5 mEq/L (3.5-4.5); Sodium 140 mEq/L (136-145); eGFR For African Americans > 60 (> 60); eGFR For Non-African Americans > 60 (> 60)
[2016-08-16] MEDS ORDERED: Nitroglycerin 25 MG/250 ML INFUS..BTL IVC SCH (04:16)
[2016-08-16] MEDS ORDERED: Ipratropium/Albuterol Neb 3 ML IH PRN (04:54)
[2016-08-16] MEDS ORDERED: *HR* Dextrose 50 % in Water (Syg) 50 ML SYRINGE IVP PRN (05:36)
[2016-08-16] MEDS ORDERED: D5% in Water 1,000 ML IV PRN (05:36)
[2016-08-16] MEDS ORDERED: Dextrose Gel 15 GM PO PRN ×2 (05:36)
[2016-08-16 06:03] LABS: INR 1.1; Prothrombin Time 12.3 Seconds (9.4-12.1)
[2016-08-16 06:05] LABS: Hematocrit 33.1 % (35.3-44.9); Hemoglobin 10.5 g/dL (11.5-15.4); Mean Corpuscular HGB Conc 31.7 g/dL (31.6-35.5); Mean Corpuscular Hemoglobin 24.5 pg (28.0-33.3); Mean Corpuscular Volume 77.3 fL (83.0-100.0); Mean Platelet Volume 9.6 fL (9.4-12.4); Platelet Count 279 K/mcL (140-400); Red Blood Count 4.28 M/mcL (3.82-4.97); Red Cell Distribution Width 16.7 % (11.5-14.5)
[2016-08-16 06:07] LABS: Activated Partial Thrombo Time 34.4 Seconds (26.0-36.0)
[2016-08-16] MEDS ORDERED: 0.9 % Sodium Chloride 1,000 ML IVC SCH ×2 (07:45→11:30)
[2016-08-16] MEDS: Furosemide 40 MG TABLET PO SCH ×3 (09:12→17:37)
[2016-08-16] MEDS: Gabapentin 400 MG CAPSULE PO SCH ×3 (09:15→21:30)
[2016-08-16] MEDS: Insulin LISPRO 300 UNITS/3 ML VIAL SQ SCH ×4 (09:15→21:33)
[2016-08-16] MEDS: Aspirin Enteric Coated 81 MG Tablet PO SCH (09:15)
[2016-08-16] MEDS: Simethicone 80 MG TAB.CHEW PO SCH ×4 (09:15→21:30)
[2016-08-16] MEDS: clonazePAM 0.5 MG TABLET PO SCH ×2 (09:16→21:30)
[2016-08-16] MEDS: Isosorbide MONOnitrate (24 HR) 60 MG TAB.ER.24H PO SCH (09:16)
[2016-08-16] MEDS: amLODIPine 5 MG TABLET PO SCH (09:16)
[2016-08-16] MEDS: Lisinopril 20 MG TABLET PO SCH (09:16)
[2016-08-16] MEDS: Nicotine 21 MG PATCH.TD24 TD SCH (09:17)
[2016-08-16] MEDS: Fluticasone Propionate Nasal 50 MCG/SPRAY BOTTLE NS SCH ×2 (09:17→09:27)
--- NOTE | 2016-08-16 09:29 | Cardiology Consult Note ---
<Zeus Wagner - Last Filed: 08/16/16 09:30> Date of Encounter: 08/16/16 Time of Encounter: 09:27 Assessment and Plan (1) NSTEMI (non-ST elevated myocardial infarction) Current Visit: No Status: Acute Patient admitted to hospital with anginal chest pain similar to what she had during her last hospital admission. EKG reviewed- showed sinus rhythm with ST segment depression in inferolateral leads with T wave inversions noted. Troponins 0.07, 0.09, 0.13--uptrending. Was also hypertensive with BP as high as 190s systolic, which could be causing troponin leak. Patient had chest pain with dynamic EKG changes-currently on Nitroglycerin drip and chest pain free. Heparin gtt was ordered to start at 1100, as she received a dose of therapeutic Lovenox in ED at 2311. Options discussed with pt. Recommend C given continued symptoms, uptrending troponins and dynamic EKG changes. R/B/A discussed and is agreeable to proceed with [facility]. LHC 02/2016: successful PTCA/PRANAV to prox-mid LAD; 60% stenosis OM1, 30% pRCA, 70 % dRCA. Imdur increased to 120mg this AM. Risk factor modification emphasized including smoking cessation. Recheck echo. (2) Diastolic CHF Current Visit: No Status: Acute Hx of diastolic CHF, EF preserved per most recent TTE in February 2016. Appears euvolemic upon exam, continue home medications. Significantly elevated HTN upon admission, now controlled. Kidney function normal. Qualifiers: Congestive heart failure chronicity: chronic Qualified Code(s): I50.32 - Chronic diastolic (congestive) heart failure (3) CAD (coronary artery disease) Current Visit: No Status: Chronic Continue ASA, Statin, Plavix, BB, Imdur. Qualifiers: Coronary Disease-Associated Artery/Lesion type: [place] artery [place] vs. 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 Continue outpt meds, defer further recommendations to primary service. Qualifiers: COPD type: unspecified COPD Qualified Code(s): J44.9 - Chronic obstructive pulmonary disease, unspecified (5) HTN (hypertension) Current Visit: No Status: Chronic Not at goal--160s systolic this AM prior to med administration. Will continue to monitor and adjust antihypertensives as necessary. Also currently on nitro gtt at 5mcg/min. Qualifiers: Hypertension type: essential hypertension Qualified Code(s): I10 - Essential (primary) hypertension (6) Tobacco use Current Visit: No Status: Chronic Smoking cessation counseling given. Discussion w patient/family: The assessment and plan as outlined above was discussed with the patient and/or family members who expressed understanding and agreement. All questions were answered. Thank you for involving us in the care of your patient. Please call with any questions. I will discuss all the above with Dr. Black and make changes as necessary. History of Present Illness Consult date: 08/16/16 Requesting physician: Cheryl uMeller Consult reason: Chest pain, elevated troponin Chief complaint: Chest pain History of present illness: Ms. Ferguson is a 56 year old female with PMH significant for CAD s/p PCI, HTN, HLD, RICHIE, end-stage COPD dependent on home oxygen that was discharged yesterday from [facility] after hospitalization for chest pain and elevated troponins. She was noted to have dynamic EKG changes. LHC was recommended at that time, but pt declined--wanted medical management and Imdur was increased. She reports that she got home yesterday, was there 3-4 hours, got up to go to the bathroom and experienced exertional chest pain midsternal that radiated down both arms and into bilateral jaw area. She called the squad, took 2 nitro and was chest pain free by the time she arrived to ED. She unfortunately continues to smoke. EKG changes noted--lateral leads. Cardiology was consulted. Troponins 0.07, 0.09, 0.13. Prior CV testing includes: LHC 02/26/16: PTCA/PRANAV to prox-mid LAD; EF 55%; otherwise moderate-severe CAD (60% OM1, 30% pRCA, 70% dRCA). TTE 02/18/16: LVEF 50%; moderate LV diastolic dysfunction. Nuclear stress 07/2015:LVEF 32%, mild TID, moderate apical inferior ischemia TTE 10/10/2014: EF 45%. Mild concentric LVH. Holter monitor 02/15/2014: Normal sinus rhythm with rare PACs and PVCs. Non exercise, nuclear stress test 09/2011: Negative for ischemia. [facility] 2006: Report indicates mild disease involving the LAD (30%). Past Med Surg Social Fam HX - Past Medical History Medical history: CHF, COPD, coronary artery disease, diabetes, hyperlipidemia, hypertension, myocardial infarction, peripheral artery disease Psychiatric history: anxiety - Past Surgical History Surgical History: angioplasty/stent, hysterectomy, other - Social History Smoking Status: Current every day smoker Packs per day: 1/2 Smokeless Tobacco Status: No Alcohol use: none Drug use: none - Family History Daughter Living Status: Still Living Hx Family Cardiac Disorders: Yes Hx Family Respiratory Disorders: No Hx Family Cancer: No Hx Family GI Disorders: No Hx Family Genitourinary Disorders: No Hx Family Endocrine Disorder: Yes Hx Family Musculoskeletal Disorders: No Hx Family Neuromuscular Disorders: No Hx Family Neurologic Disorders: No Hx Family HEENT Disorders: No Hx Family Autoimmune Disorders: No Hx Family Reproductive Disorders: No Hx Family Psychosocial Disorders: No Hx Family Medical Disorders: No Brother Living Status: Hx Family Cardiac Disorders: Yes Hx Family Respiratory Disorders: Yes Hx Family Cancer: Yes Hx Family GI Disorders: No Hx Family Genitourinary Disorders: No Hx Family Endocrine Disorder: Yes Hx Family Musculoskeletal Disorders: No Hx Family Neuromuscular Disorders: No Hx Family Neurologic Disorders: No Hx Family HEENT Disorders: No Hx Family Autoimmune Disorders: No Hx Family Reproductive Disorders: No Hx Family Psychosocial Disorders: No Hx Family Medical Disorders: No Son Living Status: Still Living Hx Family Cardiac Disorders: Yes (HTN) Hx Family Respiratory Disorders: Yes (Childhood Asthma) Hx Family Cancer: No Hx Family GI Disorders: No Hx Family Genitourinary Disorders: No Hx Family Endocrine Disorder: No Hx Family Musculoskeletal Disorders: No Hx Family Neuromuscular Disorders: No Hx Family Neurologic Disorders: No Hx Family HEENT Disorders: No Hx Family Autoimmune Disorders: No Hx Family Reproductive Disorders: No Hx Family Psychosocial Disorders: No Hx Family Medical Disorders: No Father Living Status: Hx Family Cardiac Disorders: No Hx Family Respiratory Disorders: Yes (COPD) Hx Family Cancer: No Hx Family GI Disorders: No Hx Family Genitourinary Disorders: No Hx Family Endocrine Disorder: No Hx Family Musculoskeletal Disorders: No Hx Family Neuromuscular Disorders: No Hx Family Neurologic Disorders: No Hx Family HEENT Disorders: No Hx Family Autoimmune Disorders: No Hx Family Reproductive Disorders: No Hx Family Psychosocial Disorders: No Hx Family Medical Disorders: No Mother Family Member Ethnicity: Non- Living Status: Hx Family Cardiac Disorders: Yes (heart attack) Hx Family Respiratory Disorders: Yes (PNE) Hx Family Cancer: Yes Hx Family GI Disorders: No Hx Family Genitourinary Disorders: No Hx Family Endocrine Disorder: No Hx Family Musculoskeletal Disorders: No Hx Family Neuromuscular Disorders: No Hx Family Neurologic Disorders: No Hx Family HEENT Disorders: No Hx Family Autoimmune Disorders: No Hx Family Reproductive Disorders: No Hx Family Psychosocial Disorders: No Hx Family Medical Disorders: No Medications and Allergies Aspirin [Lo-Dose Aspirin EC] 81 mg PO DAILY 02/18/16 [History] Carvedilol [Coreg] 25 mg PO BID 02/18/16 [History] ClonazePAM [Clonazepam] 0.5 mg PO BID 02/18/16 [History] Ergocalciferol (VITAMIN D2) [Vitamin D2 (50,000 UNIT)] 50,000 unit PO QWEEK [History] Furosemide [Lasix] 40 mg PO TID 02/18/16 [History] Gabapentin [Neurontin] 400 mg PO TID 02/18/16 [History] Metformin [Glucophage] 500 mg PO BID 02/18/16 [History] Nitroglycerin 0.4 mg SL Q5MIN PRN 02/18/16 [History] Pantoprazole Sodium 40 mg PO DAILY 02/18/16 [History] Potassium Chloride [K-Tab ER] 10 meq PO BID 02/18/16 [History] Amlodipine [Norvasc] 10 mg PO DAILY #30 tablet 02/27/16 [Rx] Atorvastatin [Lipitor] 80 mg PO HS #30 tablet 02/27/16 [Rx] Beclomethasone Diprop 80mcg [QVAR 80 mcg] 2 puff IH BIDR #1 inhaler 02/27/16 [Rx ] Clopidogrel [Plavix] 75 mg PO DAILY #30 tablet 02/27/16 [Rx] Fluticasone Propionate Nasal [Flonase] 100 mcg NS DAILY #1 bottle 02/27/16 [Rx] Tiotropium [Spiriva] 18 mcg IH DAILYR inh 03/07/16 [Rx] Ferrous Sulfate 325 mg PO BIDWM #60 tablet 08/15/16 [Rx] Isosorbide MONOnitrate (24 HR) [Imdur] 120 mg PO DAILY #120 tab.er.24h 08/15/16 [Rx] Lisinopril [Zestril] 40 mg PO DAILY #60 tablet 08/15/16 [Rx] Nicotine Patch [Nicoderm] 21 mg TD DAILY #10 patch.td24 08/15/16 [Rx] Simethicone [Gas Relief] 125 mg PO QID 30 Days 08/15/16 [Rx] Allergies acetaminophen [From Vicodin] Allergy (Verified 07/12/15 08:51) Hives hydrocodone [From Vicodin] Allergy (Verified 07/12/15 08:51) Hives budesonide [From Symbicort] Adverse Reaction (Verified 02/20/16 08:46) Cough Formoterol [From Symbicort] Adverse Reaction (Verified 02/20/16 08:46) Cough All Systems Review: A 10-system review of systems was performed and is negative for pertinent findings except as documented above in the HPI. - Cardiovascular Cardiovascular: as per HPI, chest pain with exertion, dyspnea at rest, dyspnea on exertion, radiating jaw, neck or arm pain - Respiratory Respiratory: dyspnea Physical Examination Vital Signs, Last 4 Hours Temp Pulse Resp BP Pulse Ox 08/16/16 06:39 98.4 F 70 14 151/63 98 Vital Signs Temp Pulse Resp BP Pulse Ox 08/16/16 06:39 98.4 F 70 14 151/63 98 08/16/16 04:43 98.6 F 73 16 154/61 96 08/16/16 00:09 98.6 F 75 14 144/63 98 08/15/16 23:17 16 156/79 08/15/16 21:30 82 16 168/79 98 08/15/16 20:38 98.1 F 98 16 190/98 99 Intake and Output 08/15/16 08/16/16 08/16/16 23:59 07:59 15:59 Output Total 250 / 250 500 / 500 Balance -250 / -250 -500 / -500 Output: Urine 250 / 250 500 / 500 Other: Weight 81.647 kg Blood Glucose* 150 General: Conversant, No Apparent Distress HEENT: Atraumatic, Normocephaly, Mucus Membranes Moist Neck: No JVD, Normal carotid pulses Cardiac: Reg Rate and Rhythm, Normal S1 and S2, No Murmur Lungs: Normal Breath Sounds, No Wheeze, Rales, Rhonchi Neuro: Alert and responsive, No focal deficits noted Abdomen: Soft, Non-Tender Skin: No rashes noted on visualized skin Musculoskeletal: No Chest Wall Tenderness Extremities: No Clubbing, No Cyanosis, No Edema, Normal Pulses Results 08/16/16 05:20 08/16/16 03:19 Lab Results 08/16/16 08/16/16 08/16/16 03:19 03:19 03:19 WBC 9.3 Hgb 11.0 L Hct 34.9 L Plt Count 304 INR APTT Sodium 140 Potassium 4.5 Chloride 104 Carbon Dioxide 26 BUN 16 Creatinine 0.88 Glucose 155 H Calcium 9.6 Troponin I 0.09 H* 08/16/16 08/16/16 05:20 05:20 WBC 9.2 Hgb 10.5 L Hct 33.1 L Plt Count 279 INR 1.1 APTT 34.4 Sodium Potassium Chloride Carbon Dioxide BUN Creatinine Glucose Calcium Troponin I Short CBC 08/16/16 08/16/16 08/15/16 Range/Units 05:20 03:19 20:57 WBC 9.2 9.3 12.2 H D (4.3-11.1) K/mcL Hgb 10.5 L 11.0 L 11.9 D (11.5-15.4) g/dL Hct 33.1 L 34.9 L 38.4 (35.3-44.9) % Plt Count 279 304 307 (140-400) K/mcL Neutrophils # 6.5 9.6 H (1.6-8.9) K/mcL BMP 08/16/16 08/15/16 Range/Units 03:19 20:57 Sodium 140 138 (136-145) mEq/L Potassium 4.5 4.6 H (3.5-4.5) mEq/L Chloride 104 102 (98-109) mEq/L Carbon Dioxide 26 23 (19-29) mEq/L BUN 16 16 (7-20) mg/dL Creatinine 0.88 0.89 (0.57-1.11) mg/dL Glucose 155 H 182 H (70-99) mg/dL Calcium 9.6 10.0 (8.6-10.8) mg/dL Cardiac Enzymes 0208/16/16 08/15/16 Range/Units 08:53 03:19 20:57 Troponin I 0.13 H* 0.09 H* 0.07 H* (0-0.03) ng/mL Impressions Chest X-Ray 08/15/16 20:44 IMPRESSION: 1. No acute cardiopulmonary disease. D/ / Bunny Murray MD / Bunny Murray MD Interpreting Provider: Bunny Murray MD Active Medications Acetaminophen (Tylenol) 650 mg PO Q6HR PRN PRN Reason: Mild Pain (1-3) Stop: 02/15/17 01:34 Albuterol/Ipratropium (Duoneb) 3 ml IH [id number] PRN; Protocol PRN Reason: Shortness Of Breath/Wheezing Stop: 02/15/17 04:55 Amlodipine Besylate (Norvasc) 10 mg PO DAILY [facility] PRN Reason: Protocol Stop: 02/15/17 09:01 Last Admin: 08/16/16 09:16 Dose: 10 mg Aspirin (Aspirin Ec) 81 mg PO DAILY [facility] Stop: 02/15/17 09:01 Last Admin: 08/16/16 09:15 Dose: 81 mg Atorvastatin Calcium (Lipitor) 80 mg PO HS [facility] Stop: 02/15/17 01:31 Last Admin: 08/16/16 02:07 Dose: 80 mg Carvedilol (Coreg) 25 mg PO BIDWM [facility] PRN Reason: Protocol Stop: 02/15/17 01:23 Last Admin: 08/16/16 02:07 Dose: 25 mg Clonazepam (Klonopin) 0.5 mg PO BID [facility] Stop: 02/15/17 09:01 Last Admin: 08/16/16 09:16 Dose: 0.5 mg Clopidogrel Bisulfate (Plavix) 75 mg PO DAILY [facility] Stop: 02/15/17 09:01 Last Admin: 08/16/16 09:16 Dose: 75 mg Dextrose/Water (Dextrose 50% (Syg)) 25 ml IVP AD PRN PRN Reason: Hypoglycemia Stop: 02/15/17 05:37 Ferrous Sulfate (Ferrous Sulfate) 325 mg PO BIDWM [facility] Stop: 02/15/17 08:01 Last Admin: 08/16/16 09:16 Dose: 325 mg Fluticasone Propionate (Flonase) 100 mcg NS DAILY [facility] PRN Reason: Protocol Stop: 02/15/17 09:01 Last Admin: 08/16/16 09:27 Dose: Not Given Furosemide (Lasix) 40 mg PO TIDDIURETIC [facility] Stop: 02/15/17 08:01 Last Admin: 08/16/16 09:12 Dose: Not Given Gabapentin (Neurontin) 400 mg PO TID [facility] Stop: 02/15/17 09:01 Last Admin: 08/16/16 09:15 Dose: 400 mg Glucagon (Glucagen) 1 mg IM ONCE PRN PRN Reason: Hypoglycemia Stop: 02/15/17 05:37 Glucose (Gluctose) 15 gm PO ONCE PRN PRN Reason: Hypoglycemia Stop: 02/15/17 05:37 Glucose (Gluctose) 30 gm PO ONCE PRN PRN Reason: Hypoglycemia Stop: 02/15/17 05:37 Heparin Sodium (Porcine) (Heparin) 4,000 unit IVP ONCE ONE Stop: 08/16/16 12:01 Heparin Sodium (Porcine) (Heparin) 4,000 unit IVP Q6HR PRN PRN Reason: SEE COMMENTS Stop: 02/15/17 12:01 Heparin Sodium (Porcine) (Heparin) 2,000 unit IVP Q6H PRN PRN Reason: SEE COMMENTS Stop: 02/15/17 12:01 Nitroglycerin (Nitroglycerin) 25 mg in 250 mls @ 3 mls/hr IVC .Q24H [facility] PRN Reason: 5 MCG/MIN Stop: 02/14/17 22:46 Last Admin: 08/16/16 04:20 Dose: 5 mcg/min, 3 mls/hr Heparin Sodium/Dextrose (Heparin 25,000 Unit/500 Ml D5w) 25,000 unit in 500 mls @ 19.595 mls/hr IVC .Q24H [facility]ON; 12 UNIT/KG/HR PRN Reason: Protocol Stop: 02/15/17 12:01 Dextrose (Dextrose 5%) 1,000 mls @ 100 mls/hr IV CONT PRN PRN Reason: HYPOGLYCEMIA Stop: 02/15/17 05:37 Sodium Chloride (0.9 % Sodium Chloride) 1,000 mls @ 25 mls/hr IVC .Q24H [facility] Stop: 02/15/17 07:46 Last Admin: 08/16/16 09:17 Dose: 25 mls/hr Insulin Human Lispro (Humalog) 0 units SQ Q4HR [facility] PRN Reason: Protocol Stop: 02/15/17 08:01 Last Admin: 08/16/16 09:15 Dose: Not Given Isosorbide Mononitrate (Imdur) 120 mg PO DAILY [facility] Stop: 02/15/17 09:01 Last Admin: 08/16/16 09:16 Dose: 120 mg Lisinopril (Zestril) 40 mg PO DAILY [facility] PRN Reason: Protocol Stop: 02/15/17 09:01 Last Admin: 08/16/16 09:16 Dose: 40 mg Morphine Sulfate (Morphine Sulfate) 2 mg IVP Q2H PRN PRN Reason: moderate to severe chest pain Stop: 02/15/17 01:29 Naloxone HCl (Narcan) 0.4 mg IVP Q2MIN PRN PRN Reason: Opioid Reversal Stop: 02/15/17 01:34 Nicotine (Nicoderm) 21 mg TD DAILY [facility] PRN Reason: Protocol Stop: 02/15/17 09:01 Last Admin: 08/16/16 09:17 Dose: Not Given Nitroglycerin (Nitroglycerin) 0.4 mg SL Q5MIN PRN PRN Reason: Chest Pain Stop: 02/15/17 01:21 Last Admin: 08/16/16 04:01 Dose: 0.4 mg Omeprazole (Prilosec) 40 mg PO 0630 [facility] Stop: 02/15/17 06:31 Last Admin: 08/16/16 06:34 Dose: 40 mg Ondansetron HCl (Zofran) 4 mg IVP Q8HR PRN PRN Reason: Nausea And Vomiting Stop: 02/15/17 01:34 Potassium Chloride (Potassium Chloride) 10 meq PO BID [facility] Stop: 02/15/17 09:01 Last Admin: 08/16/16 09:16 Dose: 10 meq Simethicone (Gas-X) 125 mg PO QID [facility] Stop: 02/15/17 09:01 Last Admin: 08/16/16 09:15 Dose: 125 mg - Imaging and Cardiology Stress Test: report reviewed Echo: report reviewed Cardiac cath: report reviewed Holter: report reviewed - EKG Interpretation EKG results cardiology: personally reviewed (Sinus rhythm, new lateral ischemic changes/depression compared to EKG 02/2016 when she had stent placement.), other (12 hour tele AVG HR 75, no significant pause or arrhythmias.) Consult Discharge Plan - Plan Referrals: Kiel Fisher, [Primary Care Provider] - <Ab Black - Last Filed: 08/16/16 10:17> Assessment and Plan Discussion w patient/family: The assessment and plan as outlined above was discussed with the patient and/or family members who expressed understanding and agreement. All questions were answered. Thank you for involving us in the care of your patient. Please call with any questions. History of Present Illness History of present illness: Ms. Ferguson is a 56 year old female All Systems Review: A 10-system review of systems was performed and is negative for pertinent findings except as documented above in the HPI. Physical Examination Vital Signs, Last 4 Hours Temp Pulse Resp BP Pulse Ox 08/16/16 06:39 98.4 F 70 14 151/63 98 Results 08/16/16 05:20 08/16/16 03:19 Lab Results 08/16/16 08/16/16 08/16/16 03:19 03:19 03:19 WBC 9.3 Hgb 11.0 L Hct 34.9 L Plt Count 304 INR APTT Sodium 140 Potassium 4.5 Chloride 104 Carbon Dioxide 26 BUN 16 Creatinine 0.88 Glucose 155 H Calcium 9.6 Troponin I 0.09 H* 08/16/16 08/16/16 08/16/16 05:20 05:20 08:53 WBC 9.2 Hgb 10.5 L Hct 33.1 L Plt Count 279 INR 1.1 APTT 34.4 Sodium Potassium Chloride Carbon Dioxide BUN Creatinine Glucose Calcium Troponin I 0.13 H* Attestation: My signature below is to certify that this patient is under my care and that I, or nurse practitioner, or a physician's lead assistant manager working with me, has a face-to -face encounter with this patient. Patient now agreeable to cath. Planned for later today NPO Further recs/work up based on cath results.
[2016-08-16] MEDS ORDERED: *HR* Heparin 10,000 UNIT/10 ML VIAL ONE (09:38)
[2016-08-16] MEDS ORDERED: 0.9 % Sodium Chloride 1,000 ML ONE ×3 (09:38→10:09)
[2016-08-16] MEDS ORDERED: Heparin 1,000 UNITS/500 mL NS 500 ML ONE (09:38)
--- NOTE | 2016-08-16 09:50 | Pre-Sedation Evaluation ---
Pre-sedation evaluation - Pre-sedation checklist Date of procedure: 08/16/16 Procedure: HEART CATH Recent Vitals: Last Vital Signs Temp 98.4 F 08/16/16 06:39 Pulse 70 08/16/16 06:39 Resp 14 08/16/16 06:39 BP 151/63 08/16/16 06:39 Pulse Ox 98 08/16/16 06:39 H&P (including ROS) documented in medical record: Yes Previous reaction to sedatives/anesthetics: No Dietary Status: NPO after Midnight Airway Assessment: Patient can open mouth completely, TMJ function normal, Micrognathia (under-bite, receding chin) absent, Neck with adequate range of motion Dentition: No loose teeth or bridges Possible difficult airway: No ASA Classification *see protocol: CLASS II-Mild systemic disease Plan of Care: Pt appropriate candidate for procedure/moderate/conscious sedation , Risks/benefits of procedure/sedation discussed w/ patient/family
--- NOTE | 2016-08-16 09:51 | Event Note ---
<BrandtSarkis ovalles Ednicole - Last Filed: 08/16/16 09:58> Date of Encounter: 08/16/16 Time of Encounter: 09:45 Mrs. Ferguson is a 56 y.o. female who was discharged recently from [facility]. She was admitted for NSTEMI. She had recurrent symptoms but elected to forego [facility] and pursue medical management. She states that she developed severe/crushing/ midsternal chest pain while ambulating to the bathroom last night. She states that this radiated to her arms and jaws bilaterally. It was associated with diaphoresis. No increased dyspnea or or presyncope. She is currently on a a Nitroglycerine drip and is chest pain free. Of note she states that she was not able to get any of the medications she was discharged with from the pharmacy. She also states that she has a lot of confusion about her medication. I have reviewed all labs and vitals since admission. Notable for accelerated hypertension which has improved since admission ( possibly from noncompliance), leukocytosis ( now resolved), Microcytic anemia (She had recent iron studies that suggest iron deficiency) and a mildly elevated troponin that is uptrending ( most recent 0.13). Exam is remarkable for hirsutism, decreased breath sounds bilaterally ( normal effort on home dose O2), tobacco staining on oxygen hosing. I agree with A/P as outlined in the H&P I have spoken with cardiology and she will have a [facility] today. <Landry Wilks - Last Filed: 08/16/16 15:37> I examined this patient and my medical decision-making was reviewed with the SECURITY INTERN/PA/Advanced Practice Nurse/Resident Physician. I agree with the documented findings, disposition and treatment plan as described except to the extent set forth below.
[2016-08-16] MEDS ORDERED: Nitroglycerin 1,000 MCG/10 ML VIAL IV ONE (09:59)
[2016-08-16] MEDS ORDERED: *HR* Midazolam HCl 2 MG/2 ML VIAL ONE ×2 (10:09→10:31)
[2016-08-16] MEDS ORDERED: *HR* FentaNYL (PF) 100 MCG/2 ML VIAL ONE (10:09)
[2016-08-16] MEDS ORDERED: *HR* Bivalirudin 250 MG VIAL IVC ONE (10:13)
[2016-08-16] MEDS ORDERED: *HR* Ticagrelor 90 MG TABLET ONE (11:12)
[2016-08-16] MEDS ORDERED: *HR* Heparin 5,000 UNIT/ML VIAL IVP PRN ×2 (12:00)
[2016-08-16] MEDS ORDERED: Heparin 25,000 UNIT/500 ML D5W 25,000 UNIT/500 ML MLS IVC SCH (12:00)
[2016-08-16] MEDS ORDERED: *HR* Heparin 5,000 UNIT/ML VIAL IVP ONE (12:00)
--- NOTE | 2016-08-16 13:18 | Invasive Diagnostic Lab ---
Name: Anabelle Ferguson Date of Study: 08/16/2016 Date: 1960 Ht: 160.0 cm /63.0 in Medical Record#: [id number] Age: 56 Wt: 81.6 kg / 179.99 lb Account/Order#: [id number] Gender: Female BSA: 1.85 Order #: [id number] Fluoro Dose: 764 mGy BMI: 31.89 Procedure Physician: Stephanie Simmons MD, [facility] Referring MD: Referring MD: Procedures Performed: CORONARY ANGIOGRAPHY Stent w/ PTCA Single Major Vessel Stent w/ PTCA Single Major Vessel Indications: Non-Stemi Impressions: Triple vessel coronary artery disease. Instent restenosis of previously stented proximal LAD. Patient had successful PTCA/Drug-Eluting Stent placement in the proximal LAD. Patient had successful PTCA/Drug-Eluting Stent placement in the mid Circ. Recommendations: Dual antiplatelet therapy. Staged PCI of distal RCA. Aggressive risk factor modification. Optimal medical therapy of patient's disease. History/Risk Factors: smoker Diabetes Hypertension Dyslipidemia CHF within 2 weeks Current/Recent Smoker Peripheral Vascular Disease Chronic Lung Disease Prior [place] Previous PCI Procedure Access obtained in the left Femoral artery by percutaneous puncture Patient had successful PTCA/Drug-Eluting Stent placement in the Proximal LAD. Patient had successful PTCA/Drug-Eluting Stent placement in the mid Circ. Complications: None, None, None Contrast: Isovue 171ml Closure Device: Manual compression Hemodynamics: Pressures Site Systolic/ A Wave Diastolic/ V Wave End Diastolic/ Mean HR AO 118 65 87 66 AO 112 62 83 68 AO 104 64 82 75 AO 93 56 72 75 AO 106 48 70 69 AO 96 55 73 67 AO 100 52 71 69 AO 96 52 69 68 AO 100 51 71 69 AO 99 53 72 69 Coronary Dominance: right Lesion Findings/Interventions * Left Main Coronary Artery There is a 30% stenosis in the LMCA. * Left Anterior Descending There is a 50% ostial LAD lesion. There is a 28 mm long, 99% instent restenosis in the Proximal LAD. The lesion has a BRAYAN flow of 3. An intervention was performed on the Proximal LAD with a final stenosis of 0%. There were no lesion complications. The final BRAYAN flow was 3. There is a 70% stenosis in the 1st Diagonal. * Circumflex There is a 15% stenosis in the Proximal Circumflex. There is a 16 mm long, 95% stenosis in the Mid Circumflex. The lesion has a BRAYAN flow of 3. An intervention was performed on the Mid Circumflex with a final stenosis of 0%. There were no lesion complications. The final BRAYAN flow was 3. There is a 30% stenosis in the 1st Marginal. * Right Coronary Artery There is a 30% stenosis in the Proximal RCA. There is a 30% stenosis in the Mid RCA. There is a 80% stenosis in the Distal RCA. Interventional Device(s) Vessel Segment Type Name Diameter (mm) Length (mm) Proximal LAD Balloon Emerge Monorail 2.5 16 Proximal LAD Drug Eluting Stent Promus Premier Rx 2.75 28 Proximal LAD Balloon NC Emerge 3 15 Mid Circumflex Balloon Emerge Monorail 2.5 16 Mid Circumflex Drug Eluting Stent Promus Premier Rx 2.75 16 Updated by Stephanie Simmons MD, FACC on 08/16/2016 1:13:35 PM Stephanie Simmons MD, FACC electronically signed on 08/16/2016 1:14:39 PM with status of Final
[2016-08-16] MEDS ORDERED: *HR* Morphine 2 MG/ML SYRINGE ONE (13:41)
--- NOTE | 2016-08-16 15:00 | Invasive Diagnostic Lab Proc ---
Name: Anabelle Ferguson Date of Study: 08/16/2016 Date: 1960 Ht: 63.0in Medical Record#: [id number] Age: 56 Wt: 179.99lb Gender: Female BSA: 1.85 Order #: [id number] BMI: 31.89 Physicians Procedure Physician: Stephanie Simmons MD, [facility] Referring MD: Referring MD: Staff Name Position Time In Pearl Cutler RN [facility] Shift Lead 10:10 AM Asha Ramirez RN Monitor 10:10 AM [facility], Zabrina RT (R) Scrub 10:11 AM Indications Indication Non-Stemi Procedures Performed Procedure CORONARY ARTERY ANGIO S\\T\\I PRQ CARD PRANAV STENT W/ANGIO 1 VSL PRQ CARD PRANAV STENT W/ANGIO 1 VSL Pre-Procedure Checklist Informed consent is complete signed and on chart. H\\T\\P is on chart. ID band is on and ID verified with patient. Patient NPO for procedure The procedure was described for the patient and questions were answered. Blood Pressure: 151/63 ECG is on chart. Rhythm: NSR Plan of Care Patient will tolerate the procedure without complications. Adequate level of comfort will be maintained. Hemodynamics will remain stable Patient will recover from procedure without complications. Respiratory function will be maintained. Cardiac rhythm will remain stable. Patient temperature will be maintained. Patient and/or family have verbalized understanding of the procedure. Patient Education Chief Complaint/Reason for Test: Cardiac Cath Developmental Category: Adult (18-64 years) Developmentally Appropriate for Age: Yes Learning Barriers: None Education Needs: Procedure Education Method: Verbal Information Taught: Cardiac Cath Educational Evaluation: Able to repeat information Intravenous Access Time IV Size Location DC'd Fluid/Drip Rate Units RN 10:07 AM 22g 1" Patent On Arrival Lt Arm 0.9NaCl 25 ml/hr Pearl Cutler RN Allergies budesonide Symbicort Formoterol acetaminophen hydrocodone Vital Signs Time BP (mmHg) HR (bpm) O2 Sat. RR (bpm) LOC 10:10 AM 151 / 63 70 98 % 14 5 = Fully awake and oriented or at pre-proc level 10:25 AM / % 4 = Oriented but drowsy 10:25 AM / % 5 = Fully awake and oriented or at pre-proc level 10:25 AM / % 4 = Oriented but drowsy 10:40 AM / % 4 = Oriented but drowsy 10:55 AM / % 4 = Oriented but drowsy 10:17 AM 137 / 78 78 98 % 20 10:22 AM 133 / 69 68 97 % 15 10:27 AM 127 / 65 71 98 % 18 10:32 AM 135 / 70 74 97 % 17 10:37 AM 126 / 56 73 97 % 13 10:42 AM 122 / 65 69 98 % 18 10:47 AM 116 / 50 68 97 % 15 10:52 AM 94 / 51 67 96 % 13 10:57 AM 104 / 49 69 97 % 14 11:02 AM 105 / 54 65 96 % 13 11:07 AM 119 / 53 69 96 % 14 11:12 AM 111 / 54 76 95 % 9 11:17 AM 122 / 63 68 98 % 12 11:35 AM 104 / 56 64 97 % 16 5 = Fully awake and oriented or at pre-proc level 11:47 AM 96 / 52 62 97 % 16 5 = Fully awake and oriented or at pre-proc level 12:00 PM 104 / 54 69 98 % 18 5 = Fully awake and oriented or at pre-proc level 12:15 PM 112 / 57 60 99 % 18 5 = Fully awake and oriented or at pre-proc level 12:30 PM 114 / 57 62 98 % 18 5 = Fully awake and oriented or at pre-proc level 12:45 PM 113 / 54 63 99 % 18 4 = Oriented but drowsy 01:00 PM 114 / 62 66 98 % 18 4 = Oriented but drowsy 01:15 PM 126 / 60 75 98 % 18 5 = Fully awake and oriented or at pre-proc level 01:30 PM 130 / 67 62 99 % 18 5 = Fully awake and oriented or at pre-proc level 01:45 PM 131 / 64 68 98 % 18 5 = Fully awake and oriented or at pre-proc level 02:00 PM 107 / 52 60 98 % 18 5 = Fully awake and oriented or at pre-proc level 02:30 PM 104 / 50 61 98 % 18 5 = Fully awake and oriented or at pre-proc level Procedural Medications Time Medication Dose Units Method Given By 10:22 AM Oxygen 3 L/min nasal cannula Pearl Cutler RN 10:24 AM Versed 2 mg Intravenous Pearl Cutler RN 10:26 AM Benadryl 25 mg Intravenous Pearl Cutler RN 10:30 AM Lidocaine 2% 18 ml Subcutaneous Stephanie Simmons MD, FAC 10:31 AM Fentanyl 25 mcg Intravenous Pearl Cutler RN 10:31 AM Versed 1 mg Intravenous Pearl Cutler RN 10:42 AM Angiomax 0.75mg/kg bolus: 12 ml Intravenous Pearl Cutler RN 10:43 AM Angiomax 1.75mg/kg/hr: 28 ml Intravenous Pearl Cutler RN 10:59 AM Nitroglycerin 200 mcg Intracoronary Stephanie Simmons MD, FAC 11:10 AM Nitroglycerin 200 mcg Intracoronary Stephanie Simmons MD, FAC 11:15 AM Brilinta 180 mg Orally Pearl Cutler RN 11:16 AM Fentanyl 25 mcg Intravenous Pearl Cutler RN 10:24 AM Fentanyl 50 mcg Intravenous Pearl Cutler RN ASA Classification: CLASS II- Mild systemic disease (i.e. well-controlled diabetes, hypertension, asthma, cigarette smoking) Levon Score Preprocedure Postprocedure Activity 2- Moves 4 extremities sustained head lift Activity 2- Moves 4 extremities sustained head lift Circulation 2- SBP +/= 20 points of pre-anesthetic level Circulation 2- SBP +/= 20 points of pre-anesthetic level Consciousness 2- Awake and alert oriented x 3 Consciousness 2- Awake and alert oriented x 3 O2 Saturation 2- Able to maintain O2 satruation of 92% on room air O2 Saturation 2- Able to maintain O2 satruation of 92% on room air Respiratory 2- Able to deep breathe and cough well Respiratory 2- Able to deep breathe and cough well Total Score 10 Total Score 10 Contrast Agent: Isovue Diagnostic Contrast: 171 ml Total Contrast: 171 ml Fluoro Dose: 764 mGy Procedure Log Time Note Enter By 09:46 AM CathStat 10:10 AM [facility] laboratory inspector [facility] AM Physician arrived 10:10 [facility] 10:10 AM ASA Class CLASS II- Mild systemic disease (i.e. well-controlled diabetes, hypertension, asthma, cigarette smoking) [facility] 10:10 AM Martin and sara completed [facility] 10:10 AM Sign in performed according to hospital policy. [facility] 10:10 AM Procedure start 10:10 lpaneo 10:10 AM Pearl Cutler RN Position: [facility] Shift Lead Time in: 10:10 lpaneo 10:11 AM Asha Ramirez RN Position: Monitor Time in: 10: [facility] 10[facility]11 AM Kevyn, Zabrina RT (R) Position: Scrub Time [facility]: 10:11 [facility] AM Patient charges- Angio tray pack, Navilyst 3mm J, Pulse Oximetry and ACIST tubing and transducer [facility] 10:11 AM IV Supplies used: J loop Angio Cath. [facility] 10[facility]11 AM Case Delayed No [facility] 10:16 AM Vitals capture started with the following parameters, Patient=Adult, Interval=5 min, Initial Ueuvjcee=309 mmHg, Deflation Rate=5 mmHg, Cuff placed on Left Leg 10:17 AM HR=78 bpm, JGWN=385/78 mmhg, SpO2=98.0 %, Resp=20 B/min, Comment=nsr 10:21 AM Hair removed from procedure site in procedure lab using clippers. Bilateral groin prepped with Chloraprep by Pearl Cutler RN then patient draped. Skin intact. [facility] 10: AM HR=68 bpm, USAL=423/69 mmhg, SpO2=97.0 %, Resp=15 B/min, Comment=nsr 10: AM Time: 10:22 Oxygen on at 3 L/min per nasal cannula by Pearl Cutler RN Patient wears 3L at home all the time [facility] 10:24 AM Time: 10:24 Fentanyl 50 mcg Intravenous Given by Pearl Cutler RN [facility] 10: AM Time: 10:24 Versed 2 mg Intravenous Given by Pearl Cutler RN 10: AM Time: 10:25 Patient comfortable and pain free: Yes [facility] 10: AM Time: 10:25LOC: 5 = Fully awake and oriented or at pre-proc level [facility] 10: AM Clinical Presentation: Non-STEMI [facility] 10: AM Time: 10:26 Benadryl 25 mg Intravenous Given by Pearl Cutler RN [facility] 10: AM HR=71 bpm, ZMIE=948/65 mmhg, SpO2=98.0 %, Resp=18 B/min, Comment=nsr 10: AM Pressure channel 1 zero failed. 10:30 AM Pressure channel 1 zeroed. 10: AM Time: 10:30 18 ml Lidocaine 2% to left groin Subcutaneous Given by Stephanie Simmons MD, [facility] 10:31 AM Time: 10:31 Fentanyl 25 mcg Intravenous Given by Pearl Cutler RN 10:31 AM Access obtained by percutaneous puncture. 5Fr 10cm Terumo Charmco sheath placed in left Femoral artery. [id number] [facility] 10:31 AM Time: 10:31 Versed 1 mg Intravenous Given by Pearl Cutler RN 10:32 AM HR=74 bpm, DPIQ=395/70 mmhg, SpO2=97.0 %, Resp=17 B/min, Comment=nsr 10:32 AM 5Fr FL 4 catheter [facility] AM L[facility] performed in multiple views. [facility] 10:33 AM Recorded Pressure: Ao, HR=66, Condition=Condition 1 (Aorta) Ao 118/65/87 10:33 AM Recorded Pressure: Ao, HR=68, Condition=Condition 1 (Aorta) Ao 112/62/83 10:34 AM Catheter removed [facility] 10:34 AM 5Fr FR 4 catheter inserted over the wire [facility] 10:35 AM Recorded Pressure: Ao, HR=75, Condition=Condition 1 (Aorta) Ao 104/64/82 10:35 AM Recorded Pressure: Ao, HR=75, Condition=Condition 1 (Aorta) Ao 93/56/72 10:37 AM HR=73 bpm, FKZU=135/56 mmhg, SpO2=97.0 %, Resp=13 B/min, Comment=nsr 10:38 AM RCA angiography performed in multiple views. [facility] 10:38 AM Coronary Dominance: right [facility] 10:39 AM Catheter removed [facility] 10:40 AM Time: :25LOC: 4 = Oriented but drowsy [facility] 10:41 AM PCI Status Urgent [facility] 10:41 AM PCI Indication: PCI for high risk Non-STEMI or unstable angina [facility] 10:41 AM Sheath exchanged for a 6 Fr 11 cm Terumo Destination sheath [id number] [facility] 10:41 AM .014 Prowater 180cm guide wire across target lesion- successful. reused? No lparsley 10:42 AM HR=69 bpm, SBPR=492/65 mmhg, SpO2=98.0 %, Resp=18 B/min, Comment=nsr 10:42 AM Lesion found in Proximal LAD. Pre Stenosis: 99 Pre BRAYAN Flow: 3: Complete and Brisk Flow/Perfusion [facility] 10:43 AM Time: 10:42 Angiomax 0.75mg/kg bolus: 12 ml Intravenous Given by Pearl Cutler RN Coley pump [facility] 10:43 AM Time: 10:43 Angiomax 1.75mg/kg/hr: 28 ml Intravenous Given by Pearl Cutler RN Coley pump [facility] 10:44 AM 6Fr XB LAD 3.5 Cordis guide catheter was used to cannulate the PCI vessel successfully. reused? No lparsley 10:46 AM Recorded Pressure: Ao, HR=69, Condition=Condition 1 (Aorta) Ao 106/48/70 10:47 AM HR=68 bpm, GQOX=246/50 mmhg, SpO2=97.0 %, Resp=15 B/min, Comment=nsr 10:50 AM 2.5 mm x 16 mm Emerge Monorail balloon across target lesion- successful. reused? No [facility] 10:50 AM Inflation device was opened. [facility] 10:50 AM Balloon inflated @ 15 toma for 30 seconds [facility] 10:50 AM Recorded Pressure: Ao, HR=67, Condition=Condition 1 (Aorta) Ao 96/55/73 10:52 AM Recorded Pressure: Ao, HR=69, Condition=Condition 1 (Aorta) Ao 100/52/71 10:52 AM Balloon catheter removed intact. [facility] 10:52 AM HR=67 bpm, NIBP=94/51 mmhg, SpO2=96.0 %, Resp=13 B/min, Comment=nsr 10:53 AM Recorded Pressure: Ao, HR=68, Condition=Condition 1 (Aorta) Ao 96/52/69 10:54 AM fluids increased at this time d/t slight decrease in BP [facility] 10:55 AM 2.75mm x 28mm Promus Premier Rx drug-eluting stent across target lesion- successful Lot #[id number] [facility] 10:55 AM Stent deployed @ 12 toma for 30 seconds [facility] 10:55 AM Stent balloon reinflated @ 15 toma for 15 seconds [facility] 10:55 AM Time: 10:40LOC: 4 = Oriented but drowsy [facility] 10:55 AM Time: 10:25 Patient comfortable and pain free: Yes [facility] 10:56 AM Stent delivery system removed intact. [facility] 10:56 AM 3.0 mm x 15mm NC Emerge balloon across target lesion- successful. reused? No [facility] 10:57 AM Recorded Pressure: Ao, HR=69, Condition=Condition 1 (Aorta) Ao 100/51/71 10:57 AM HR=69 bpm, IRZV=448/49 mmhg, SpO2=97.0 %, Resp=14 B/min, Comment=nsr 10:57 AM Balloon inflated @ 20 toma for 15 seconds [facility] 10:58 AM Balloon inflated @ 20 toma for 20 seconds [facility] 10:58 AM Balloon inflated @ 20 toma for 10 seconds [facility] 10:58 AM Balloon catheter removed intact. [facility] 10:59 AM Time: :59 Nitroglycerin 200 mcg Intracoronary Given by Stephanie Simmons MD, [facility] 11:02 AM guide wire and guide catheter repositioned to the circ. Guide wire across target lesion with out difficulty [facility] 11:02 AM 2.5x16 emerge balloon reinserted, this time it has been placed in the Circ [facility] 11:02 AM HR=65 bpm, SZIC=896/54 mmhg, SpO2=96.0 %, Resp=13 B/min, Comment=nsr 11:04 AM Recorded Pressure: Ao, HR=69, Condition=Condition 1 (Aorta) Ao 99/53/72 11:05 AM Balloon inflated @ 18 toma for 30 seconds [facility] 11:06 AM Balloon inflated @ 10 toma for 20 seconds [facility] 11:06 AM Lesion found in Mid Circumflex. Pre Stenosis: 95 Pre BRAYAN Flow:3 [facility] 11:07 AM HR=69 bpm, QYCZ=418/53 mmhg, SpO2=96.0 %, Resp=14 B/min, Comment=nsr 11:08 AM Balloon catheter removed intact. [facility] 11:08 AM 2.75mm x 16mm Promus Premier Rx drug-eluting stent across target lesion- successful Lot #[id number] [facility] 11:09 AM Stent deployed @ 12 toma for 30 seconds [facility] 11:09 AM Proximal Left Anterior Descending Coronary Artery with 99% stenosis. If graft is supplying this territory, % stenosis. [facility] 11:09 AM Circumflex, Obtuse Marginal, Left Posterior Descending, and Left Posterolateral Coronary Arteries with 95 % stenosis. If graft is supplying this area, % stenosis [facility] 11:10 AM Time: 11:10 Nitroglycerin 200 mcg Intracoronary Given by Stephanie Simmons MD, [facility] 11:10 AM Time: 10:55LOC: 4 = Oriented but drowsy [facility] 11:11 AM Time: 10:55 Patient comfortable and pain free: Yes [facility] 11:11 AM Stent delivery system removed intact. [facility] 11: AM Guide catheter removed intact. [facility] 11:11 AM Guide wire removed intact. [facility] 11:12 AM HR=76 bpm, JCTJ=601/54 mmhg, SpO2=95.0 %, Resp=9 B/min, Comment=nsr 11:13 AM Bolus angiogram of right Femoral complete: 4 ml/sec for a total of 7 mls [facility] 11:14 AM Procedure completed at 11:14 [facility] 11:15 AM Sign out completed: Radiation Dose 764 mGy Fluoro Time: 8.8 Isovue 370 - 200ml contrast 171 ml given by Stephanie Simmons MD, [facility]. Complications: NoneCardiac Rehab Consult needed: YesConfirmed administered medications: Yes [facility] 11:16 AM Time: 11:15 Brilinta 180 mg Orally Given by Pearl Cutler RN [facility] 11:16 AM Time: 11:16 Fentanyl 25 mcg Intravenous Given by Pearl Cutler RN [facility] 11:17 AM HR=68 bpm, IDAK=346/63 mmhg, SpO2=98.0 %, Resp=12 B/min, Comment=nsr 11:18 AM Isovue 370 - 200ml,1 Bottle(s) used. [facility] 11:18 AM Sheath left in place to be pulled on floor/holding area [facility] 11:18 AM Post ECG NSR [facility] 11:20 AM Post Blood Pressure 122/63 [facility] 11:20 AM 11:20 Post Pulses Bilateral DP \\T\\ PT 1+ [facility] 11:21 AM Information taught Cardiac Cath and PCI [facility] 11:21 AM Education needs Procedure, Plan of Care, and Responsibilities of Patient in Care [facility] 11:21 AM Learning barriers :None [facility] 11:26 AM Time: 11:11 Patient comfortable and pain free: Yes [facility] 11:26 AM Lesion found in Proximal RCA. Pre Stenosis: 30 Pre BRAYAN Flow: [facility] 11:26 AM Lesion found in Mid RCA. Pre Stenosis: 30 Pre BRAYAN Flow: [facility] 11:26 AM Lesion found in Distal RCA. Pre Stenosis: 80 Pre BRAYAN Flow: [facility] 11:26 AM Lesion found in LMCA. Pre Stenosis: 30 Pre BRAYAN Flow: [facility]ley 11:27 AM Lesion found in 1st Diagonal. Pre Stenosis: 70 Pre BRAYAN Flow: [facility]ley 11:28 AM Lesion found in Proximal Circumflex. Pre Stenosis: 15 Pre BRAYAN Flow: [facility] 11:31 AM Information taught Cardiac Cath, PCI, and CHIEF ANALYTICS OFFICER/Stent [facility] 11:31 AM Education needs Plan of Care, Procedure, and Responsibilities of Patient in Care [facility] 11:31 AM Learning barriers :None [facility] 11:31 AM Education Methods Verbal [facility] 11:31 AM Education evaluation Able to repeat information [facility] 11:31 AM Site status No bleeding/hematoma - Lt Groin as reported by Sites, Zabrina RT (R) at 11:31 [facility] 11:31 AM Opsite applied [facility] 11:31 AM Report given to Bianca PERKINS Pt taken to Holding room Room #4. 11:31 [facility] 11:31 AM Delay to floor No [facility] 11:32 AM Patient out of room: 11:32 [facility] 11:32 AM No family present at this time. Patient doesnt have anyone that she would like for to call and speak to at this time [facility] 11:32 AM Complications: None [facility] 11:32 AM Fluoro Time: 8.8 [facility] 11:32 AM Isovue 370 - 200ml contrast 171 ml given by Stephanie Simmons MD, [facility]. [facility] 11:32 AM Radiation Dose 764 mGy [facility] 11:33 AM Lesion found in 1st Marginal. Pre Stenosis: 30 Pre BRAYAN Flow: [facility] 11:33 AM Mid/Distal Left Anterior Descending Coronary Artery and diagonal branches with 70% stenosis. If graft is supplying this area, 0 % stenosis [facility] 11:34 AM Left Main Coronary Artery with 30% stenosis [facility] 11:34 AM Right Coronary, Right Posterior Descending Arteries with Right Posterolateral and Acute Marginal branches with 80 % stenosis. If graft is supplying this area, 0 % stenosis [facility] 11:35 AM pateint arrived to holding area. Spoke with patient's significant other and daughter and updated regarding patient's condition mprater 11:41 AM Time: 11:26 Patient comfortable and pain free: Yes [facility] 12:05 PM Patient c/o right buttocks and back pain /, refuses pain med at this time. kwitte 12:11 PM Familly at bedside. kwitte 12:12 PM Upper left arm sheath pulled per Bianca Lainez RN. Manual pressure being held. kwitte 01:15 PM Patient assisted to bedpan to void per request. kwitte 01:30 PM Left femoral sheath pulled per this RN. Manual pressure being held with Vpad. kwitte 01:44 PM Morphine 2mg IV given per Pearl Cutler RN for c/o back pain 03/16 kwitte 01:47 PM Hemostasis obtained to left femoral artery. Dressing d/i. Patient educated on post sheath pull instructions. Patient verbalized understanding. kwitte 02:07 PM Report called to Lynn RN on 2ne. kwitte 02:35 PM Patient transferred to [facility] via stretcher without diffiuculty. kwitte 02:54 PM Delay to floor No kwitte 02:54 PM Complications: None kwitte Complications Complication None None None None Hemodynamics Pressures Site Systolic/A Wave Diastolic/V Wave Mean AO 118 65 87 AO 112 62 83 AO 104 64 82 AO 93 56 72 AO 106 48 70 AO 96 55 73 AO 100 52 71 AO 96 52 69 AO 100 51 71 AO 99 53 72 Post Procedure Information Blood Pressure: 122/63 mmHg Rhythm: NSR Post procedural instructions were given Closure Device Time Device Success/Fail 08/16/2016 11:29:00 AM Manual compression Site Checks Time Location Status Staff Sheath In? Note 11:31 AM Lt Groin No bleeding/hematoma Sites, Zabrina RT (R) 11:35 AM Lt Groin No bleeding/ No Hematoma Bianca Lainez RN Yes 11:47 AM Lt Groin No bleeding/ No Hematoma Hemant Maria RN Yes 12:05 PM Lt Groin No bleeding/ No Hematoma Hemant Maria RN Yes 12:15 PM Lt Groin No bleeding/ No Hematoma Hemant Maria RN Yes 12:30 PM Lt Groin No bleeding/ No Hematoma Hemant Maria RN Yes 12:45 PM Lt Groin No bleeding/ No Hematoma Hemant Maria RN Yes 01:00 PM Lt Groin No bleeding/ No Hematoma Hemant Maria RN Yes 01:15 PM Lt Groin No bleeding/ No Hematoma Hemant Maria RN Yes 01:30 PM Lt Groin No bleeding/ No Hematoma Hemant Maria RN 01:45 PM Lt Groin No bleeding/ No Hematoma Hemant Maria RN 02:00 PM Lt Groin No bleeding/ No Hematoma Hemant Maria RN 02:15 PM Lt Groin No bleeding/ No Hematoma Hemant Maria RN 02:30 PM Lt Groin No bleeding/ No Hematoma Hemant Maria RN Pulses Time Site Pre-Procedure Post-Procedure Note 08/16/2016 10:09:00 AM Bilateral DP \\T\\ PT 2+ 08/16/2016 10:09:00 AM Bilateral radial 2+ 11:20:00 AM Bilateral DP \\T\\ PT 1+ 08/16/2016 11:35:00 AM Bilateral DP \\T\\ PT 1+ 08/16/2016 11:47:00 AM Bilateral DP \\T\\ PT 1+ 08/16/2016 12:00:00 PM Bilateral DP \\T\\ PT 1+ 08/16/2016 1:00:00 PM Bilateral DP \\T\\ PT 1+ 08/16/2016 1:45:00 PM Bilateral DP \\T\\ PT 1+ 08/16/2016 2:00:00 PM Bilateral DP \\T\\ PT 1+ Updated by Hemant Maria RN on 08/16/2016 2:54:20 PM Hemant Maria RN electronically signed on 08/16/2016 2:55:11 PM with status of Final
--- NOTE | 2016-08-16 16:51 | Electrocardiograph Report ---
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
--- NOTE | 2016-08-16 16:56 | Electrocardiograph Report ---
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
[2016-08-17] MEDS: Insulin LISPRO 300 UNITS/3 ML VIAL SQ SCH ×5 (02:42→22:27)
[2016-08-17] MEDS: Isosorbide MONOnitrate (24 HR) 60 MG TAB.ER.24H PO SCH (08:14)
[2016-08-17] MEDS: amLODIPine 5 MG TABLET PO SCH (08:15)
[2016-08-17] MEDS: Lisinopril 20 MG TABLET PO SCH (08:15)
[2016-08-17] MEDS: Gabapentin 400 MG CAPSULE PO SCH ×3 (08:15→22:26)
[2016-08-17] MEDS: *HR* Ticagrelor 90 MG TABLET PO SCH ×2 (08:15→22:26)
[2016-08-17] MEDS: Furosemide 40 MG TABLET PO SCH ×3 (08:15→16:19)
[2016-08-17] MEDS: clonazePAM 0.5 MG TABLET PO SCH ×2 (08:15→22:27)
[2016-08-17] MEDS: Aspirin Enteric Coated 81 MG Tablet PO SCH (08:16)
[2016-08-17] MEDS: Nicotine 21 MG PATCH.TD24 TD SCH (08:18)
[2016-08-17] MEDS: Simethicone 80 MG TAB.CHEW PO SCH ×4 (08:19→22:26)
[2016-08-17] MEDS: Fluticasone Propionate Nasal 50 MCG/SPRAY BOTTLE NS SCH (08:19)
--- NOTE | 2016-08-17 08:20 | Internal Med Progress Note ---
Date of Encounter: 08/17/16 Time of Encounter: 08:15 - Assessment and plan (1) NSTEMI (non-ST elevated myocardial infarction) Current Visit: No Status: Acute Assessment and plan: was admitted for chest pain after discharge on same day. Elevated Trops. Underwent cath. Noted restenosis in previous stents. 2 new stents: Proximal LAD and Mid Circ. Switched to Brillinta. (2) Diastolic CHF Current Visit: No Status: Acute Assessment and plan: presently stable and will continue medical management. Qualifiers: Congestive heart failure chronicity: chronic Qualified Code(s): I50.32 - Chronic diastolic (congestive) heart failure (3) CAD (coronary artery disease) Current Visit: No Status: Chronic Assessment and plan: S/p Stent. will continue: ASA/BB/ Statin/Brillinta/Imdur. medical decision making : mild to moderate rsik of worsening in spite of appropriate tratment. Qualifiers: Coronary Disease-Associated Artery/Lesion type: [place] artery [place] vs. transplanted heart: [place] heart Associated angina: without angina Qualified Code(s): I25.10 - Atherosclerotic heart disease of [place] coronary artery without angina pectoris - Subjective Interval history: seen and examined. Denies chest pain. eating well. Keen for home. - Constitutional Vitals: Temp Pulse Resp BP Pulse Ox 98.1 F 77 15 137/61 97 08/17/16 07:25 08/17/16 07:25 08/17/16 07:25 08/17/16 07:25 08/17/16 07:25 General appearance: Present: A&O X 3, no acute distress, obese, answers questions appropriately - Head Head exam: Present: atraumatic, normocephalic - Eye Eye exam: Present: PERRL, conjuntiva pink, sclera anicteric Pupils: Present: PERRL - Neck Neck exam general surgery: Present: supple, trachea midline. Absent: lymphadenopathy - Respiratory Respiratory exam: Present: CTAB. Absent: accessory muscle use, rales, rhonchi, wheezes - Cardiovascular Cardiovascular exam: Present: RRR, +S1, +S2. Absent: diastolic murmur, gallop, rubs, systolic murmur - GI/Abdominal GI/Abdominal exam: Present: normal bowel sounds, soft, no peritoneal signs. Absent: distended, tenderness - Extremities Exam Extremities exam: Present: warm, radial pulses palpable and symetrical. Absent : calf tenderness, cyanotic, pedal edema - Neurological Exam Neurological exam: Present: CN II-XII intact, oriented X3, no focal deficits. Absent: pronater drift, facial droop, speech deficit - Skin Skin exam: Present: dry, intact Internal Medicine: Result - Labs CBC & Chem 7: 08/16/16 05:20 08/16/16 03:19 - ABG Interpretation ABG results: PT/INR, D-dimer PT 12.3 Seconds (9.4-12.1) H 08/16/16 05:20 Consult Discharge Plan - Plan Referrals: Kiel Fisher DO [Primary Care Provider] -
--- NOTE | 2016-08-17 11:21 | Cardiology Progress Note ---
<Zeus Wagner Nanda - Last Filed: 08/17/16 11:24> Date of Encounter: 08/17/16 Time of Encounter: 11:18 Assessment and Plan (1) NSTEMI (non-ST elevated myocardial infarction) Current Visit: No Status: Acute EKG showed sinus rhythm with ST segment depression in inferolateral leads with T wave inversions noted. Troponins 0.07, 0.09, 0.13 [facility] yesterday--triple vessel CAD. Instent restenosis of previously stented proximal LAD. She had successful PTCA/PRANAV to prox LAD and mid Cx. It has been recommended that she have staged PCI of distal RCA as outpt--and possibly of diag. DAPT (ASA and Brilinta) x 1 year uninterrupted--pt verbalizes understanding. Continue BB, Statin, nitrates. Imdur increased to 120mg. Risk factor modification emphasized including smoking cessation. Left femoral access site healing well. No bleeding, hematoma or ecchymosis noted. Echo pending. Cardiology signing off. Reconsult PRN. Follow-up in 1 week--will coordinate through cardio office. (2) Diastolic CHF Current Visit: No Status: Acute Hx of diastolic CHF, EF preserved per most recent TTE in February 2016. Appears euvolemic upon exam, continue home medications. Significantly elevated HTN upon admission, now controlled. Kidney function normal. Qualifiers: Congestive heart failure chronicity: chronic Qualified Code(s): I50.32 - Chronic diastolic (congestive) heart failure (3) CAD (coronary artery disease) Current Visit: No Status: Chronic Continue ASA, Statin, Brilinta, BB, Imdur. Qualifiers: Coronary Disease-Associated Artery/Lesion type: [place] artery [place] vs. 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 Continue outpt meds, defer further recommendations to primary service. Qualifiers: COPD type: unspecified COPD Qualified Code(s): J44.9 - Chronic obstructive pulmonary disease, unspecified (5) HTN (hypertension) Current Visit: No Status: Chronic Better controlled this AM. Qualifiers: Hypertension type: essential hypertension Qualified Code(s): I10 - Essential (primary) hypertension (6) Tobacco use Current Visit: No Status: Chronic Smoking cessation counseling given. Discussion w patient/family: The assessment and plan as outlined above was discussed with the patient and/or family members who expressed understanding and agreement. All questions were answered. Thank you for involving us in the care of your patient. Please call with any questions. I will discuss all the above with Dr. Black and make changes as necessary. Subjective Principal diagnosis: NSTEMI, CAD Interval history: C yesterday revealed Triple vessel CAD. Instent restenosis of previously stented proximal LAD. She had successful PTCA/PRANAV to prox LAD and mid Cx. It has been recommended that she have staged PCI of distal RCA as outpt--and possibly of diag. Pt denies chest pain overnight, does report dyspnea, on O2. Objective Vital Signs, Last 4 Hours Temp Pulse Resp BP Pulse Ox 08/17/16 09:00 97 08/17/16 07:25 98.1 F 77 15 137/61 97 Vital Signs Temp Pulse Resp BP Pulse Ox 08/17/16 09:00 97 08/17/16 07:25 98.1 F 77 15 137/61 97 08/17/16 04:41 98.2 F 68 15 125/52 98 08/16/16 23:37 98.6 F 78 16 126/57 97 08/16/16 21:53 98.7 F 81 17 121/60 96 08/16/16 17:24 68 16 118/74 97 08/16/16 16:09 97.7 F 76 18 132/48 97 08/16/16 15:34 72 18 117/64 100 08/16/16 15:20 72 17 128/55 100 08/16/16 15:08 72 17 128/54 95 08/16/16 15:01 97.7 F 75 16 137/67 94 L 08/16/16 14:50 72 18 131/55 Intake and Output 08/16/16 08/17/16 08/17/16 23:59 07:59 15:59 Intake Total 820 / 820 100 / 100 480 / 480 Output Total 850 / 850 300 / 300 600 / 600 Balance -30 / -30 -200 / -200 -120 / -120 Intake: Oral 820 / 820 100 / 100 480 / 480 Output: Urine 850 / 850 300 / 300 600 / 600 Other: Meal Lunch Breakfast Percent of Meal Consumed 100% 100% Stool Size Large Stool Consistency formed Stool Characteristics Normal for Patient Stool Color Brown # Voids 1 2 Weight 85.5 kg 85.5 kg Blood Glucose* 206 136 Patient Weight 08/17/16 23:59 Weight 85.5 kg General: Conversant, No Apparent Distress HEENT: Atraumatic, Normocephaly, Mucus Membranes Moist Neck: No JVD, Normal carotid pulses Cardiac: Reg Rate and Rhythm, Normal S1 and S2, No Murmur Lungs: Other (diminished) Neuro: Alert and responsive, No focal deficits noted Abdomen: Soft, Non-Tender Skin: Other (left femoral access site healing well--no bleeding, hematoma or ecchymosis noted.) Musculoskeletal: No Chest Wall Tenderness Extremities: No Clubbing, No Cyanosis, No Edema, Normal Pulses Results 08/16/16 05:20 08/16/16 03:19 Active Medications Acetaminophen (Tylenol) 650 mg PO Q6HR PRN PRN Reason: Mild Pain (1-3) Stop: 02/15/17 01:34 Albuterol/Ipratropium (Duoneb) 3 ml IH [id number] PRN; Protocol PRN Reason: Shortness Of Breath/Wheezing Stop: 02/15/17 04:55 Amlodipine Besylate (Norvasc) 10 mg PO DAILY KAMERON PRN Reason: Protocol Stop: 02/15/17 09:01 Last Admin: 08/17/16 08:15 Dose: 10 mg Aspirin (Aspirin Ec) 81 mg PO DAILY KAMERON Stop: 02/15/17 09:01 Last Admin: 08/17/16 08:16 Dose: 81 mg Atorvastatin Calcium (Lipitor) 80 mg PO HS [facility] Stop: 02/15/17 01:31 Last Admin: 08/16/16 21:30 Dose: 80 mg Carvedilol (Coreg) 25 mg PO BIDWM KAMERON PRN Reason: Protocol Stop: 02/15/17 01:23 Last Admin: 08/17/16 08:16 Dose: 25 mg Clonazepam (Klonopin) 0.5 mg PO BID KAMERON Stop: 02/15/17 09:01 Last Admin: 08/17/16 08:15 Dose: 0.5 mg Dextrose/Water (Dextrose 50% (Syg)) 25 ml IVP AD PRN PRN Reason: Hypoglycemia Stop: 02/15/17 05:37 Ferrous Sulfate (Ferrous Sulfate) 325 mg PO BIDWM KAMERON Stop: 02/15/17 08:01 Last Admin: 08/17/16 08:15 Dose: 325 mg Fluticasone Propionate (Flonase) 100 mcg NS DAILY KAMERON PRN Reason: Protocol Stop: 02/15/17 09:01 Last Admin: 08/17/16 08:19 Dose: 100 mcg Furosemide (Lasix) 40 mg PO TIDDIURETIC KAMERON Stop: 02/15/17 08:01 Last Admin: 08/17/16 08:15 Dose: 40 mg Gabapentin (Neurontin) 400 mg PO TID KAMERON Stop: 02/15/17 09:01 Last Admin: 08/17/16 08:15 Dose: 400 mg Glucagon (Glucagen) 1 mg IM ONCE PRN PRN Reason: Hypoglycemia Stop: 02/15/17 05:37 Glucose (Gluctose) 15 gm PO ONCE PRN PRN Reason: Hypoglycemia Stop: 02/15/17 05:37 Glucose (Gluctose) 30 gm PO ONCE PRN PRN Reason: Hypoglycemia Stop: 02/15/17 05:37 Dextrose (Dextrose 5%) 1,000 mls @ 100 mls/hr IV CONT PRN PRN Reason: HYPOGLYCEMIA Stop: 02/15/17 05:37 Insulin Human Lispro (Humalog) 0 units SQ TIDAC KAMERON PRN Reason: Protocol Stop: 02/16/17 11:31 Insulin Human Lispro (Humalog) 0 units SQ HS [facility] PRN Reason: Protocol Stop: 02/16/17 21:01 Isosorbide Mononitrate (Imdur) 120 mg PO DAILY [facility] Stop: 02/15/17 09:01 Last Admin: 08/17/16 08:14 Dose: 120 mg Lisinopril (Zestril) 40 mg PO DAILY [facility] PRN Reason: Protocol Stop: 02/15/17 09:01 Last Admin: 08/17/16 08:15 Dose: 40 mg Morphine Sulfate (Morphine Sulfate) 2 mg IVP Q2H PRN PRN Reason: moderate to severe chest pain Stop: 02/15/17 01:29 Naloxone HCl (Narcan) 0.4 mg IVP Q2MIN PRN PRN Reason: Opioid Reversal Stop: 02/15/17 01:34 Nicotine (Nicoderm) 21 mg TD DAILY KAMERON PRN Reason: Protocol Stop: 02/15/17 09:01 Last Admin: 08/17/16 08:18 Dose: 21 mg Nitroglycerin (Nitroglycerin) 0.4 mg SL Q5MIN PRN PRN Reason: Chest Pain Stop: 02/15/17 01:21 Last Admin: 08/16/16 04:01 Dose: 0.4 mg Omeprazole (Prilosec) 40 mg PO 0630 KAMERON Stop: 02/15/17 06:31 Last Admin: 08/17/16 06:24 Dose: 40 mg Ondansetron HCl (Zofran) 4 mg IVP Q8HR PRN PRN Reason: Nausea And Vomiting Stop: 02/15/17 01:34 Potassium Chloride (Potassium Chloride) 10 meq PO BID KAMERON Stop: 02/15/17 09:01 Last Admin: 08/17/16 08:15 Dose: 10 meq Simethicone (Gas-X) 80 mg PO QID [facility] Stop: 02/16/17 08:15 Last Admin: 08/17/16 08:19 Dose: 80 mg Ticagrelor (Brilinta) 90 mg PO BID KAMERON Stop: 02/16/17 09:01 Last Admin: 08/17/16 08:15 Dose: 90 mg - Imaging and Cardiology Echo: pending Cardiac cath: report reviewed - EKG Interpretation EKG results cardiology: other (12 hour tele AVG HR 73, SR, no significant pauses or arrhythmias.) Consult Discharge Plan - Plan Referrals: Kiel Fisher, [Primary Care Provider] - <Ab Black - Last Filed: 08/17/16 12:29> Assessment and Plan Discussion w patient/family: The assessment and plan as outlined above was discussed with the patient and/or family members who expressed understanding and agreement. All questions were answered. Thank you for involving us in the care of your patient. Please call with any questions. Objective Vital Signs, Last 4 Hours Pulse Ox 08/17/16 09:00 97 Results 08/16/16 05:20 08/16/16 03:19 Attestation: My signature below is to certify that this patient is under my care and that I, or nurse practitioner, or a physician's corporate law assistant working with me, has a face-to -face encounter with this patient. Patient is seen and examined and agree with plan as outlined. Feels better Plan staged procedure to additional lesions. Will sign off - call if other issues arise. Close follow up with Cardiology.
--- NOTE | 2016-08-17 12:47 | ECHO - Doppler Report ---
Echocardiogram Name: Anabelle Ferguson Date of Study: 08/16/2016 Date: 1960 Ht: 63.0 in Medical Record#: [id number] Age: 56 Wt: 180.0 lb Gender: Female BSA: 1.85 Order #: [id number] Location: [facility] Room #: 2NE19 Reading Physician: Maddi Garcia DO [employer] Supervisor: Sayda Mandujano RDCS Ordering Physician: Zeus Wagner CNP Primary Physician: Kiel Fisher DO Indications: NSTEMI Impressions: LVEF 55%. Normal left ventricular size and systolic function. There is evidence of mild diastolic dysfunction of the left ventricle. Normal right ventricular size and function. Mild mitral regurgitation. No pulmonary hypertension. Left Ventricular Wall Motion: Rest Echo Findings All wall segments showed normal motion. Findings: Study Quality * Technically challenging-patient would not position for testing. ECG Findings * Normal sinus rhythm. Aortic Valve * No aortic regurgitation. * Aortic valve not well visualized. * No aortic stenosis. Mitral Valve * Normal mitral valve structure. * No mitral stenosis. * Mild mitral regurgitation. Tricuspid Valve * Tricuspid valve not well visualized. * No tricuspid regurgitation. * Estimated RA pressure is 3 mmHg. * Estimated RVSP is 19 mmHg. * No pulmonary hypertension. Pulmonic Valve * Pulmonic valve is not well visualized. * No pulmonic stenosis. * No pulmonic regurgitation. Pulmonary Artery * Pulmonary artery not well visualized. Right Ventricle * Normal right ventricular structure and function. Left Atrium * Normal left atrial size. Right Atrium * Normal right atrial size. Left Ventricle * LVEF 55%. * Normal LV chamber size, wall thickness and function. * Mild left ventricular diastolic dysfunction. Interatrial Septum * No evidence of PFO by color Doppler. IVC * Normal IVC dimensions and inspiratory collapse. Pericardium * There is no pericardial effusion present. Aorta * Normally sized aortic root. History Hypertension Diabetes Hypercholesteremia History of Smoking Years Packs 0.5 Family History of CAD History of CAD/PTCA Myocardial Infarction Congestive Heart Failure 08/12/2016 a Previous Echo was performed. Measurements: BP: 118/ 74 2D Normal Values IVSd: 1.00 cm 0.6 - 1.0 cm LVIDd: 5.40 cm 3.7 - 5.6 cm LVPWd: 1.06 cm 0.6 - 1.1 cm LVIDs: 3.44 cm 1.5 - 3.6 cm AO: 3.10 cm < 4.0 cm LA: 3.90 cm 2.0 - 4.0cm %FS: 42.10 cm >25 % LA volume: 48 Mitral Valve Peak E:.94 m/sec Peak A:1.13 m/sec E/A Ratio:0.8 Peak E' Lat Arnaldo:8.33 cm/s Peak E' Med Arnaldo:8.83 cm/s E/E' Lat Ratio:11.3 E/E' Med Ratio:10.7 Tricuspid Valve TV Regurg Peak Grad: 16.00mmHg TV Regurg Peak Arnaldo: 2.00m/sec Updated by Maddi Garcia on 08/17/2016 12:43:33 PM electronically signed on 08/17/2016 12:44:05 PM with status of Final Wall Motion Florian: 1=Normal, 2=Hypokinesis, 3=Akinesis, 4=Dyskinesis, 5=Aneurysmal, 6=Hyperkinetic, X=Not Visualized (Blank)=Missing
[2016-08-17] MEDS ORDERED: Insulin LISPRO 300 UNITS/3 ML VIAL SQ SCH (21:00)
[2016-08-18 06:22] LABS: Basophils % 0.4 %; Eosinophils # 0.2 K/mcL (0.0-0.6); Eosinophils % 2.4 %; Hematocrit 31.9 % (35.3-44.9); Hemoglobin 10.1 g/dL (11.5-15.4); Immature Granulocytes % 0.5 % (0-4); Lymphocytes # 2.1 K/mcL (0.6-4.6); Lymphocytes % 22.8 %; Mean Corpuscular HGB Conc 31.7 g/dL (31.6-35.5); Mean Corpuscular Hemoglobin 24.7 pg (28.0-33.3); Mean Platelet Volume 9.8 fL (9.4-12.4); Monocytes # 0.8 K/mcL (0.0-1.3); Monocytes % 8.2 %; Platelet Count 259 K/mcL (140-400); Red Blood Count 4.09 M/mcL (3.82-4.97); Red Cell Distribution Width 17.2 % (11.5-14.5); Segmented Neutrophils % 65.7 %
[2016-08-18 06:34] LABS: Alanine Aminotransferase 16 Units/L (0-55); Albumin 3.2 g/dL (3.5-5.0); Albumin/Globulin Ratio 0.9 (1.1-2.2); Alkaline Phosphatase 190 Units/L (38-126); Aspartate Amino Transferase 13 Units/L (5-34); BUN/Creatinine Ratio 18 (6-26); Bilirubin,Total 0.5 mg/dL (0.2-1.2); Blood Urea Nitrogen 19 mg/dL (7-20); Calcium 9.5 mg/dL (8.6-10.8); Carbon Dioxide 27 mEq/L (19-29); Chloride 102 mEq/L (98-109); Globulin 3.5 g/dL (2.4-3.5); Glucose 120 mg/dL (70-99); Osmolality,Calculated 293 (280-300); Potassium 3.8 mEq/L (3.5-4.5); Sodium 140 mEq/L (136-145); Total Protein 6.7 g/dL (6.0-8.3); eGFR For African Americans > 60 (> 60); eGFR For Non-African Americans 52 (> 60)
[2016-08-18] MEDS: Insulin LISPRO 300 UNITS/3 ML VIAL SQ SCH ×3 (08:26→20:56)
[2016-08-18] MEDS: Nicotine 21 MG PATCH.TD24 TD SCH (08:26)
[2016-08-18] MEDS: Aspirin Enteric Coated 81 MG Tablet PO SCH (08:27)
[2016-08-18] MEDS: Simethicone 80 MG TAB.CHEW PO SCH ×4 (08:27→20:55)
[2016-08-18] MEDS: Isosorbide MONOnitrate (24 HR) 60 MG TAB.ER.24H PO SCH (08:27)
[2016-08-18] MEDS: *HR* Ticagrelor 90 MG TABLET PO SCH ×2 (08:27→20:55)
[2016-08-18] MEDS: Furosemide 40 MG TABLET PO SCH ×3 (08:28→17:01)
[2016-08-18] MEDS: clonazePAM 0.5 MG TABLET PO SCH ×2 (08:28→20:55)
[2016-08-18] MEDS: amLODIPine 5 MG TABLET PO SCH (08:28)
[2016-08-18] MEDS: Lisinopril 20 MG TABLET PO SCH (08:28)
[2016-08-18] MEDS: Gabapentin 400 MG CAPSULE PO SCH ×3 (08:28→20:55)
[2016-08-18] MEDS: Fluticasone Propionate Nasal 50 MCG/SPRAY BOTTLE NS SCH (08:29)
--- NOTE | 2016-08-18 09:11 | Internal Med Progress Note ---
Date of Encounter: 08/18/16 Time of Encounter: 09:09 - Assessment and plan (1) NSTEMI (non-ST elevated myocardial infarction) Current Visit: No Status: Acute Assessment and plan: was admitted for chest pain after discharge on same day. Elevated Trops. Underwent cath. Noted restenosis in previous stents. 2 new stents: Proximal LAD and Mid Circ. Switched to Brillinta. 08/18/2016. Patient is comfortably sitting in the bed. Denies any chest pain. Noted that she is on aspirin and Brilinta. She has occasional shortness of breath. We will observe her for one day and if clinically worsens then recall cardiology. She has appointment with cardiology coming Friday. Home tomorrow (2) Diastolic CHF Current Visit: No Status: Acute Assessment and plan: presently stable and will continue medical management. Qualifiers: Congestive heart failure chronicity: chronic Qualified Code(s): I50.32 - Chronic diastolic (congestive) heart failure (3) CAD (coronary artery disease) Current Visit: No Status: Chronic Assessment and plan: S/p Stent. will continue: ASA/BB/ Statin/Brillinta/Imdur. medical decision making : mild to moderate rsik of worsening in spite of appropriate tratment. Qualifiers: Coronary Disease-Associated Artery/Lesion type: [place] artery [place] vs. transplanted heart: [place] heart Associated angina: without angina Qualified Code(s): I25.10 - Atherosclerotic heart disease of [place] coronary artery without angina pectoris - Subjective Interval history: seen and examined. Denies chest pain. eating well. Keen for home. 08/18/2016 Seen and examined. Chart reviewed. Patient denies chest pain. She has a occasional shortness of breath. No new complaints overnight. - Constitutional Vitals: Temp Pulse Resp BP Pulse Ox 97.5 F L 76 15 133/70 98 08/18/16 07:03 08/18/16 07:03 08/18/16 07:03 08/18/16 07:03 08/18/16 07:03 General appearance: Present: A&O X 3, no acute distress, obese, answers questions appropriately - Head Head exam: Present: atraumatic, normocephalic - Eye Eye exam: Present: PERRL, conjuntiva pink, sclera anicteric Pupils: Present: PERRL - Neck Neck exam general surgery: Present: supple, trachea midline. Absent: lymphadenopathy - Respiratory Respiratory exam: Present: CTAB. Absent: accessory muscle use, rales, rhonchi, wheezes - Cardiovascular Cardiovascular exam: Present: RRR, +S1, +S2. Absent: diastolic murmur, gallop, rubs, systolic murmur - GI/Abdominal GI/Abdominal exam: Present: normal bowel sounds, soft, no peritoneal signs. Absent: distended, tenderness - Extremities Exam Extremities exam: Present: warm, radial pulses palpable and symetrical. Absent : calf tenderness, cyanotic, pedal edema - Neurological Exam Neurological exam: Present: CN II-XII intact, oriented X3, no focal deficits. Absent: pronater drift, facial droop, speech deficit - Skin Skin exam: Present: dry, intact Internal Medicine: Result - Labs CBC & Chem 7: 08/18/16 04:47 08/18/16 04:47 Labs: Short CBC 08/18/16 Range/Units 04:47 WBC 9.1 (4.3-11.1) K/mcL Hgb 10.1 L (11.5-15.4) g/dL Hct 31.9 L (35.3-44.9) % Plt Count 259 (140-400) K/mcL Neutrophils # 6.0 (1.6-8.9) K/mcL BMP 08/18/16 04:47 Sodium 140 Potassium 3.8 Chloride 102 Carbon Dioxide 27 BUN 19 Creatinine 1.08 Glucose 120 H Calcium 9.5 Liver Function 08/18/16 Range/Units 04:47 Total Bilirubin 0.5 (0.2-1.2) mg/dL AST 13 (5-34) Units/L ALT 16 (0-55) Units/L Alkaline Phosphatase 190 H (38-126) Units/L Albumin 3.2 L (3.5-5.0) g/dL - ABG Interpretation ABG results: PT/INR, D-dimer PT 12.3 Seconds (9.4-12.1) H 08/16/16 05:20 Consult Discharge Plan - Plan Referrals: Kiel Fisher DO [Primary Care Provider] -
--- NOTE | 2016-08-18 13:26 | Electrocardiograph Report ---
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
[2016-08-19 07:30] VITALS: BP 126/59
[2016-08-19] MEDS: Gabapentin 400 MG CAPSULE PO SCH (08:14)
[2016-08-19] MEDS: clonazePAM 0.5 MG TABLET PO SCH (08:14)
[2016-08-19] MEDS: Simethicone 80 MG TAB.CHEW PO SCH ×2 (08:14→12:51)
[2016-08-19] MEDS: amLODIPine 5 MG TABLET PO SCH (08:14)
[2016-08-19] MEDS: Aspirin Enteric Coated 81 MG Tablet PO SCH (08:14)
[2016-08-19] MEDS: Nicotine 21 MG PATCH.TD24 TD SCH (08:15)
[2016-08-19] MEDS: Isosorbide MONOnitrate (24 HR) 60 MG TAB.ER.24H PO SCH (08:15)
[2016-08-19] MEDS: Furosemide 40 MG TABLET PO SCH ×2 (08:15→12:51)
[2016-08-19] MEDS: Lisinopril 20 MG TABLET PO SCH (08:15)
[2016-08-19] MEDS: *HR* Ticagrelor 90 MG TABLET PO SCH (08:16)
[2016-08-19] MEDS: Fluticasone Propionate Nasal 50 MCG/SPRAY BOTTLE NS SCH (08:18)
[2016-08-19] MEDS: Insulin LISPRO 300 UNITS/3 ML VIAL SQ SCH ×3 (08:20→12:51)
--- NOTE | 2016-08-19 09:04 | Discharge Summary ---
<Sarkis Carlton - Last Filed: 08/19/16 09:12> Date of Encounter: 08/19/16 Time of Encounter: 09:00 - Discharge Diagnosis (1) NSTEMI (non-ST elevated myocardial infarction) Priority: Primary Status: Acute (2) CAD (coronary artery disease) Priority: Secondary Status: Acute Qualifiers: Qualified Code(s): I25.10 - Atherosclerotic heart disease of [place] coronary artery without angina pectoris (3) COPD (chronic obstructive pulmonary disease) Priority: Secondary Status: Acute Qualifiers: Qualified Code(s): J44.9 - Chronic obstructive pulmonary disease, unspecified (4) Tobacco abuse Priority: Secondary Status: Acute - Discharge Medications Prescriptions: Isosorbide MONOnitrate (24 HR) [Imdur] 120 mg PO DAILY #120 tab.er.24h Ticagrelor [Brilinta] 90 mg PO BID 30 Days Home Medications: Aspirin [Lo-Dose Aspirin EC] 81 mg PO DAILY 02/18/16 [History] Carvedilol [Coreg] 25 mg PO BID 02/18/16 [History] ClonazePAM [Clonazepam] 0.5 mg PO BID 02/18/16 [History] Ergocalciferol (VITAMIN D2) [Vitamin D2 (50,000 UNIT)] 50,000 unit PO QWEEK [History] Furosemide [Lasix] 40 mg PO TID 02/18/16 [History] Gabapentin [Neurontin] 400 mg PO TID 02/18/16 [History] Metformin [Glucophage] 500 mg PO BID 02/18/16 [History] Nitroglycerin 0.4 mg SL Q5MIN PRN 02/18/16 [History] Pantoprazole Sodium 40 mg PO DAILY 02/18/16 [History] Potassium Chloride [K-Tab ER] 10 meq PO BID 02/18/16 [History] Amlodipine [Norvasc] 10 mg PO DAILY #30 tablet 02/27/16 [Rx] Atorvastatin [Lipitor] 80 mg PO HS #30 tablet 02/27/16 [Rx] Beclomethasone Diprop 80mcg [QVAR 80 mcg] 2 puff IH BIDR #1 inhaler 02/27/16 [Rx ] Fluticasone Propionate Nasal [Flonase] 100 mcg NS DAILY #1 bottle 08/23/16 [Rx] Tiotropium [Spiriva] 18 mcg IH DAILYR inh 03/07/16 [Rx] Ferrous Sulfate 325 mg PO BIDWM #60 tablet 08/15/16 [Rx] Lisinopril [Zestril] 40 mg PO DAILY #60 tablet 08/15/16 [Rx] Nicotine Patch [Nicoderm] 21 mg TD DAILY #10 patch.td24 08/15/16 [Rx] Simethicone [Gas Relief] 125 mg PO QID 30 Days 08/15/16 [Rx] Ferrous Sulfate 325 mg PO BIDWM tablet 08/19/16 [Rx] Isosorbide MONOnitrate (24 HR) [Imdur] 120 mg PO DAILY #120 tab.er.24h 08/19/16 [Rx] Ticagrelor [Brilinta] 90 mg PO BID 30 Days 08/19/16 [Rx] Allergies/Adverse Reactions: Allergies acetaminophen [From Vicodin] Allergy (Verified 07/12/15 08:51) Hives hydrocodone [From Vicodin] Allergy (Verified 07/12/15 08:51) Hives budesonide [From Symbicort] Adverse Reaction (Verified 02/20/16 08:46) Cough Formoterol [From Symbicort] Adverse Reaction (Verified 02/20/16 08:46) Cough Procedures/tests Complete & Pending: Procedures Performed prior 72 hours Category Date Time Status ECG 12 lead ECG [ECG] Stat Y 08/16/16 11:29 Completed EV echocardiogram Routine Y 08/16/16 09:56 Completed Date of admission: 08/16/16 09:46 Primary care physician: Kiel Fisher Consults: 08/16/16 09:57 Consult to Cardiac Rehabilitation-Phase1 [CONS] Routine Comment: Reason for Consult: NSTEMI Call Completed: No 08/16/16 11:29 Consult to Cardiac Rehabilitation-Phase1 [CONS] Routine Comment: Reason for Consult: CAD s/p PCI Call Completed: Yes Discharging clinician: Landry Wilks Anticipated date of discharge: 08/19/16 - Patient Status Disposition: Home Health Service Condition: Fair Functional capacity at discharge: uses cane/walker Overall status at discharge: patient is progressing back to baseline - Discharge Instructions Instructions: Heart Failure (DC), Acute Respiratory Distress Syndrome (DC), Urinary Tract Infection in Women (DC), Diabetes Mellitus Type 2 in Adults (DC), Chronic Obstructive Pulmonary Disease (DC), Anxiety (DC), Pneumonia (DC) Follow Up With: Cardiology [facility] [Provider Group] - 08/20/16 12:45 pm Kiel Fisher DO [Primary Care Provider] - 08/28/16 9:45 am - Diet and Activity Activity: increase activity as tolerated Diet: diabetic diet, low fat, low cholesterol, low salt diet Hospital course: Ms. Ferguson is a 56 year old female who was readmitted after a resent hospitalization for NSTEMI. She had Decline [facility] at that time. She was readmitted the day after her discharge with increased chest pains. Cardiology was consulted and she would have a heart catheterization with three vessel disease. She would have LAB AIDE and PRANAV of LAD that had in stent restenoiss as well as PRANAV of the Circumflex. Cardiology has recommended staged PTCA of the RCA as an outpatient. this AM patient is chest pain free. No major abnormal finding in vitlas labs and exam. She is on her home dose of oxygen. We will discharged her today with home health. I strongly stressed to the patient that she must have DAPT uninterruped for at least a year. - Time Spent with Patient Total time spent providing and/or coordinating discharge services: Less than 30 minutes - Constitutional Vitals: Temp Pulse Resp BP Pulse Ox 97.6 F 64 15 126/59 98 08/19/16 07:26 08/19/16 07:26 08/19/16 07:26 08/19/16 07:26 08/19/16 07:26 General appearance: Present: A&O X 3, no acute distress, obese, answers questions appropriately - Head Head exam: Present: atraumatic, normocephalic - Eye Eye exam: Present: PERRL, conjuntiva pink, sclera anicteric Pupils: Present: PERRL - Neck Neck exam general surgery: Present: supple, trachea midline. Absent: lymphadenopathy - Respiratory Respiratory exam: Present: CTAB. Absent: accessory muscle use, rales, wheezes Additional comments: diminished. mild rhonchi bilaterally/ - Cardiovascular Cardiovascular exam: Present: RRR, +S1, +S2. Absent: diastolic murmur, gallop, rubs, systolic murmur - GI/Abdominal GI/Abdominal exam: Present: normal bowel sounds, soft, no peritoneal signs. Absent: distended, tenderness - Extremities Exam Extremities exam: Present: warm, radial pulses palpable and symetrical. Absent : calf tenderness, cyanotic, pedal edema - Skin Skin exam: Present: dry, intact <Landry Wilks P - Last Filed: 08/19/16 18:11> - Discharge Diagnosis (1) NSTEMI (non-ST elevated myocardial infarction) Status: Acute (2) Diastolic CHF Status: Acute Qualifiers: Congestive heart failure chronicity: chronic Qualified Code(s): I50.32 - Chronic diastolic (congestive) heart failure (3) CAD (coronary artery disease) Status: Chronic Qualifiers: Coronary Disease-Associated Artery/Lesion type: [place] artery [place] vs. transplanted heart: [place] heart Associated angina: without angina Qualified Code(s): I25.10 - Atherosclerotic heart disease of [place] coronary artery without angina pectoris Date of admission: 08/16/16 09:46 Primary care physician: Kiel Fisher Consults: 08/16/16 09:57 Consult to Cardiac Rehabilitation-Phase1 [CONS] Routine Comment: Reason for Consult: NSTEMI Call Completed: No 08/16/16 11:29 Consult to Cardiac Rehabilitation-Phase1 [CONS] Routine Comment: Reason for Consult: CAD s/p PCI Call Completed: Yes Hospital course: Ms. Ferguson is a 56 year old female - Time Spent with Patient Total time spent providing and/or coordinating discharge services: - Constitutional Vitals: Temp Pulse Resp BP Pulse Ox 97.6 F 64 15 126/59 98 08/19/16 07:26 08/19/16 07:26 08/19/16 07:26 08/19/16 07:26 08/19/16 09:00 - Attending Attestation I examined this patient and my medical decision-making was reviewed with the [employer]/PA/Advanced Practice Nurse/Resident Physician. I agree with the documented findings, disposition and treatment plan as described except to the extent set forth below.
--- NOTE | 2016-08-19 09:15 | Physician Discharge Referral ---
<Sarkis Carlton - Last Filed: 08/19/16 09:15> Home Health/Hosp Referral Info Transfer to: Home Health Provider in Charge Post Discharge: PCP - Diagnosis (1) NSTEMI (non-ST elevated myocardial infarction) Status: Acute (2) CAD (coronary artery disease) Status: Acute (3) COPD (chronic obstructive pulmonary disease) Status: Acute (4) Tobacco abuse Status: Acute - Respiratory Orders Oxygen / L per min (3L NC) Smoking Cessation: Smoking cessation has been advised. For more information, call the [place] Tobacco Quit Line at 7-225-QFJQ-NOW. - Diet/Nutrition Diet/Nutrition Orders: Cardiac - Activity Activity Orders: Walker - Services Needed Following services are medically necessary services: Nursing, Home Health Aide - Transfer Medications Prescriptions: Isosorbide MONOnitrate (24 HR) [Imdur] 120 mg PO DAILY #120 tab.er.24h Ticagrelor [Brilinta] 90 mg PO BID 30 Days Home Medications: Aspirin [Lo-Dose Aspirin EC] 81 mg PO DAILY 02/18/16 [History] Carvedilol [Coreg] 25 mg PO BID 02/18/16 [History] ClonazePAM [Clonazepam] 0.5 mg PO BID 02/18/16 [History] Ergocalciferol (VITAMIN D2) [Vitamin D2 (50,000 UNIT)] 50,000 unit PO QWEEK [History] Furosemide [Lasix] 40 mg PO TID 02/18/16 [History] Gabapentin [Neurontin] 400 mg PO TID 02/18/16 [History] Metformin [Glucophage] 500 mg PO BID 02/18/16 [History] Nitroglycerin 0.4 mg SL Q5MIN PRN 02/18/16 [History] Pantoprazole Sodium 40 mg PO DAILY 02/18/16 [History] Potassium Chloride [K-Tab ER] 10 meq PO BID 02/18/16 [History] Amlodipine [Norvasc] 10 mg PO DAILY #30 tablet 02/27/16 [Rx] Atorvastatin [Lipitor] 80 mg PO HS #30 tablet 02/27/16 [Rx] Beclomethasone Diprop 80mcg [QVAR 80 mcg] 2 puff IH BIDR #1 inhaler 02/27/16 [Rx ] Fluticasone Propionate Nasal [Flonase] 100 mcg NS DAILY #1 bottle 02/27/16 [Rx] Tiotropium [Spiriva] 18 mcg IH DAILYR inh 03/07/16 [Rx] Ferrous Sulfate 325 mg PO BIDWM #60 tablet 08/15/16 [Rx] Lisinopril [Zestril] 40 mg PO DAILY #60 tablet 08/15/16 [Rx] Nicotine Patch [Nicoderm] 21 mg TD DAILY #10 patch.td24 08/15/16 [Rx] Simethicone [Gas Relief] 125 mg PO QID 30 Days 08/15/16 [Rx] Ferrous Sulfate 325 mg PO BIDWM tablet 08/19/16 [Rx] Isosorbide MONOnitrate (24 HR) [Imdur] 120 mg PO DAILY #120 tab.er.24h 08/19/16 [Rx] Ticagrelor [Brilinta] 90 mg PO BID 30 Days 08/19/16 [Rx] Allergies/Adverse Reactions: Allergies acetaminophen [From Vicodin] Allergy (Verified 07/12/15 08:51) Hives hydrocodone [From Vicodin] Allergy (Verified 07/12/15 08:51) Hives budesonide [From Symbicort] Adverse Reaction (Verified 02/20/16 08:46) Cough Formoterol [From Symbicort] Adverse Reaction (Verified 02/20/16 08:46) Cough Certification: Further, I certify that my clinical findings support that this patient is homebound (i.e. absences from home require considerable and taxing effort and are for medical reasons or congregation services or infrequently or short duration when for other reasons) because: Homebound Reason: Patient requires assistance of a person or device to safely leave home, Leaving home requires considerable and taxing effort due to condition, Severity of cardiac or pulmonary status limits activity tolerance Attestation: My signature below is to certify that this patient is under my care and that I, or nurse practitioner, or a physician's assistant manager working with me, has a face-to -face encounter with this patient. <Landry Wilks P - Last Filed: 08/19/16 18:11> - Diagnosis (1) NSTEMI (non-ST elevated myocardial infarction) Status: Acute (2) Diastolic CHF Status: Acute (3) CAD (coronary artery disease) Status: Chronic - Respiratory Orders Smoking Cessation: Smoking cessation has been advised. For more information, call the [place] Tobacco Quit Line at 9-849-KVXB-NOW. Certification: Further, I certify that my clinical findings support that this patient is homebound (i.e. absences from home require considerable and taxing effort and are for medical reasons or congregation services or infrequently or short duration when for other reasons) because: Attestation: My signature below is to certify that this patient is under my care and that I, or nurse practitioner, or a physician's assistant manager working with me, has a face-to -face encounter with this patient.
== END 2016-08-19 14:09 | disposition home health service (06) | DRG 247 ==
LOC: 2NENU 20:35 → EMEROO 20:35 → 2NENU 23:22
PROVIDERS: ADMIT Internal Medicine; ATTEND Internal Medicine

== ENCOUNTER 2017-02-19 18:02 | Inpatient (IN) ==
--- NOTE | 2017-02-19 21:08 | Internal Med History&Physical ---
<Farshad Ralph - Last Filed: 02/19/17 21:57> Date of Encounter: 02/19/17 Time of Encounter: 20:52 Assessment and Plan (1) Sepsis Current visit: Yes Status: Acute 57-year-old female with history of coronary disease, COPD, diabetes mellitus presents with chief complaint of fever of 103 Febrile, with leukocytosis Source of infection: UTI, suspected pneumonia Urinalysis shows leukocyte esterase, nitrates, urine bacteria Patient reports worsening shortness of breath, productive sputum and cough refractory to home nebulizer and on home oxygen Plan: Previous urine cultures show patient has Escherichia coli infection: Based on the sensitivities patient will be started on ceftriaxone Azithromycin will also be added on for suspected pneumonia Blood cultures Urine cultures Sputum cultures De-escalate antibiotics according to culture sensitivities Qualifiers: Sepsis type: sepsis due to unspecified organism Qualified Code(s): A41.9 - Sepsis, unspecified organism (2) Community acquired bacterial pneumonia Current visit: Yes Status: Suspected Presented with shortness of breath, increased productive cough, rhinorrhea, nasal congestion with fever and leukocytosis Possible source of sepsis Lung exam shows diffuse wheezing with diminished lung sounds Plan: Start patient on azithromycin and ceftriaxone Cultures ordered as above (3) Urinary tract infection Current visit: Yes Status: Acute Patient's urinalysis showed nitrates, leukocyte esterase, white blood cells, urine bacteria She denies dysuria, urinary urgency, urinary frequency Patient has previous history of UTI Plan: Start patient on ceftriaxone Await culture sensitivities for de-escalation Qualifiers: Urinary tract infection type: site unspecified Hematuria presence: without hematuria Qualified Code(s): N39.0 - Urinary tract infection, site not specified (4) COPD exacerbation Current visit: Yes Status: Acute Patient is a history of COPD and is a current smoker Her symptoms of shortness of breath, productive sputum have been worsening in the last 24 hours and are refractory to home medications. Plan: Antibiotics as above, prednisone 40 mg daily, DuoNeb's scheduled (5) Elevated troponin Current visit: Yes Status: Acute At [facility] patient had an elevated troponin of .07, .09 She denies any chest pain now and before admission. EKG sinus rhythm with no ST-T wave changes Repeated troponin Leana is 0.03 Plan: Patient strict from elevations maybe secondary to infection, as well as mickie she has high risk factors including previous coronary artery disease, previous ACS, recent left heart catheter in August with PRANAV placed in the distal RCA, female, diabetic We will continue to monitor patient with turning troponin, cardiac telemetry Continue patient's aspirin, brittle into, statin, Imdur, beta elke (6) CAD (coronary artery disease) Current visit: Yes Status: Chronic As noted in the patient has extensive history of coronary artery disease Previous left heart catheter and August 2016 with PRANAV placed in the distal RCA At that time patient started on aspirin and purulent Echo from August 2016 showed a left ventricular ejection fraction 55% with mild diastolic dysfunction. Plan: Continue home medications Cardiac telemetry Cardiac diabetic diet Qualifiers: Coronary Disease-Associated Artery/Lesion type: [place] artery [place] vs. transplanted heart: [place] heart Associated angina: without angina Qualified Code(s): I25.10 - Atherosclerotic heart disease of [place] coronary artery without angina pectoris (7) Diabetes mellitus Current visit: Yes Status: Chronic Patient has a history of diabetes mellitus Last A1c was less than 6% On metformin at home Plan: Low-dose sliding scale insulin ACHS Qualifiers: Diabetes mellitus type: type 2 Diabetes mellitus complication status: with unspecified complications Diabetes mellitus halfway insulin use: without terminal gauger use Qualified Code(s): E11.8 - Type 2 diabetes mellitus with unspecified complications (8) MICKIE (acute kidney injury) Current visit: Yes Status: Acute Patient's urine creatinine is <0.3 elevated above her baseline. Currently 1.34 Likely secondary to sepsis in setting if UTI plan: We will give patient 1 L normal saline. Avoid nephrotoxins such as NSAIDs and contrast. Hold home dose of fosinopril and Lasix. (9) DVT prophylaxis Current visit: Yes Status: Acute heparin SQ Internal Medicine - H&P: HPI Chief complaint: fever Admitted From: Home Plans for Post Hospital Care: Home History of present illness: Ms. Ferguson is a 57 year old female presents his chief complaint of fever. Patient reports feeling weak, with chills and took her temperature which was 103 at home. She also has symptoms of worsening dyspnea, productive sputum, nasal congestion. Patient denies chest pain, palpitations. Due to her symptoms she reported to [facility]. Patient was found to have a fever of 101.6, leukocytosis. Urinalysis showed nitrites, leukocyte esterase, urine bacteria. Chest x-ray was without acute changes. Troponin was elevated 0.07, 0.09. Patient was treated with ceftriaxone, 2 L of normal saline and aspirin 325 mg and transferred to [facility] due to elevated troponin. EKG was normal sinus rhythm rate [address]-T elevations or depressions. Past Med Surg Social Fam HX - Past Medical History Medical history: CHF, COPD, coronary artery disease, diabetes, hyperlipidemia, hypertension, myocardial infarction, peripheral artery disease Psychiatric history: anxiety, depression - Past Surgical History Surgical History: angioplasty/stent, hysterectomy - Social History Smoking Status: Current every day smoker Smokeless Tobacco Status: No Alcohol use: none Drug use: none - Family History Daughter Living Status: Hx Family Cardiac Disorders: Yes (father had CHF) Hx Family Respiratory Disorders: No Hx Family Cancer: Yes Hx Family GI Disorders: No Hx Family Endocrine Disorder: Yes Hx Family Neuromuscular Disorders: No Hx Family Neurologic Disorders: No Hx Family HEENT Disorders: No Hx Family Autoimmune Disorders: No Brother Living Status: Hx Family Cardiac Disorders: Yes Hx Family Respiratory Disorders: Yes Hx Family Cancer: Yes Hx Family GI Disorders: No Hx Family Endocrine Disorder: Yes Hx Family Neuromuscular Disorders: No Hx Family Neurologic Disorders: No Hx Family HEENT Disorders: No Hx Family Autoimmune Disorders: No Son Living Status: Still Living Hx Family Cardiac Disorders: Yes (HTN) Hx Family Respiratory Disorders: Yes (Childhood Asthma) Hx Family Cancer: No Hx Family GI Disorders: No Hx Family Endocrine Disorder: No Hx Family Neuromuscular Disorders: No Hx Family Neurologic Disorders: No Hx Family HEENT Disorders: No Hx Family Autoimmune Disorders: No Father Living Status: Hx Family Cardiac Disorders: No Hx Family Respiratory Disorders: Yes (COPD) Hx Family Cancer: No Hx Family GI Disorders: No Hx Family Endocrine Disorder: No Hx Family Neuromuscular Disorders: No Hx Family Neurologic Disorders: No Hx Family HEENT Disorders: No Hx Family Autoimmune Disorders: No Mother Family Member Ethnicity: Non- Living Status: Hx Family Cardiac Disorders: Yes Hx Family Respiratory Disorders: Yes (PNE) Hx Family Cancer: Yes (uterine) Hx Family GI Disorders: No Hx Family Endocrine Disorder: No Hx Family Neuromuscular Disorders: No Hx Family Neurologic Disorders: No Hx Family HEENT Disorders: No Hx Family Autoimmune Disorders: No Internal Medicine - H&P: Meds Aspirin [Lo-Dose Aspirin EC] 81 mg PO DAILY 02/18/16 [History] Carvedilol [Coreg] 25 mg PO BID 02/18/16 [History] Furosemide [Lasix] 40 mg PO TID 02/18/16 [History] Gabapentin [Neurontin] 400 mg PO TID 02/18/16 [History] Pantoprazole Sodium 40 mg PO DAILY 02/18/16 [History] Potassium Chloride [K-Tab ER] 10 meq PO BID 02/18/16 [History] clonazePAM [Clonazepam] 0.5 mg PO BID 02/18/16 [History] Tiotropium [Spiriva] 18 mcg IH DAILYR inh 03/07/16 [Rx] metFORMIN [Glucophage] 500 mg PO BID #0 09/04/16 [Rx] Albuterol Sulfate [Albuterol Inhaler] 2 puff IH Q6HR PRN 02/19/17 [History] Amlodipine Besylate 10 mg PO DAILY 02/19/17 [History] Atorvastatin [Lipitor] 40 mg PO HS 02/19/17 [History] Beclomethasone Diprop 40mcg [Qvar 40 mcg] 2 puff IH BID 02/19/17 [History] Citalopram [CeleXA] 20 mg PO DAILY 02/19/17 [History] Ergocalciferol (VITAMIN D2) [Vitamin D2] 50,000 unit PO QWEEK 02/19/17 [History] Ferrous Sulfate 325 mg PO BIDWM 02/19/17 [History] Fluticasone Propionate Nasal [Flonase] 50 mcg NS BID 02/19/17 [History] Ipratropium/Albuterol Neb [Duoneb] 3 ml IH Q4HR PRN 02/19/17 [History] Isosorbide MONOnitrate (24 HR) [Imdur] 120 mg PO DAILY 02/19/17 [History] Ticagrelor [Brilinta] 90 mg PO BID 02/19/17 [History] acetaminophen [From Vicodin] Allergy (Verified 07/12/15 08:51) Hives hydrocodone [From Vicodin] Allergy (Verified 07/12/15 08:51) Hives budesonide [From Symbicort] Adverse Reaction (Verified 02/20/16 08:46) Cough Formoterol [From Symbicort] Adverse Reaction (Verified 02/20/16 08:46) Cough All Systems PM: A 10-system review of systems was performed and is negative for pertinent findings except as documented above in the HPI. Review of systems: Constitutional: Reports fevers, chills, weakness HEENT: Denies headache, vision changes, neck pain, reports sore throat, rhinorrhea, nasal congestion Heart: Denies chest pain palpitations Lungs: Reports shortness of breath, cough, yellow sputum Abdomen: Denies abdominal pain nausea vomiting diarrhea. Reports abdominal hernia Back: Denies back pain Skin: Denies rash, open wounds Kidney: Denies dysuria, hematuria, frequency, urgency Extremities: Denies swelling, pain Neuro: Denies numbness, and tingling - Other Additional findings: General: Alert and oriented to place time and situation. Without distress HEENT: Head atraumatic, normocephalic, EOMI, PERRLA, neck nontender to palpation , absent Lymphadenopathy, Moist Mucous Membranes, Heart: Regular rate and rhythm with no murmur Lungs: Diffuse wheezing bilaterally, diminished lung sounds Abdomen: Soft nontender, nondistended positive bowel sounds, abdominal hernia, reducible Extremities: Absent pedal edema, Skin: Warm and dry Neuro: Cranial nerves II through XII intact, sensation equal bilaterally, strength upper and lower extremity 5/5, alert oriented 3 Vascular: Pedal and radial pulses 2 out of 4 Internal Med - H&P Results - Labs CBC & Chem 7: 02/19/17 21:18 02/19/17 21:18 <Bruce Dougherty - Last Filed: 02/20/17 00:01> Date of Encounter: 02/19/17 Time of Encounter: 22:15 - Constitutional Constitutional: chills, fever(s), weakness - EENT Eyes: no blurry vision, no change in vision Ears: no ear pain, no tinnitus Nose, mouth and throat: no nasal congestion, no nasal discharge, no sinus pressure, no sore throat - Cardiovascular Cardiovascular ROS IM: dyspnea, dyspnea on exertion, no chest pain - Respiratory Respiratory: cough, dyspnea, wheezing, chest congestion, change in phlegm color - Gastrointestinal Gastrointestinal: no abdominal pain, no diarrhea, no vomiting - Genitourinary Genitourinary: dysuria, no flank pain - Musculoskeletal Musculoskeletal ROS IM: back pain, no arthralgias - Integumentary Integumentary IM: no rash - Neurological Neurological ROS: no focal weakness, no frequent falls - Psychiatric Psychiatric: no anxiety, no depression - Endocrine Endocrine IM: no polydipsia, no polyuria - Hematologic/Lymphatic Hematologic/Lymphatic: no easy bruising, no lymphadenopathy - Allergic/Immunologic Allergic/Immunologic: wheezing - Constitutional Vitals: Temp Pulse Resp BP Pulse Ox 103.1 F H 98 20 167/70 93 02/19/17 23:35 02/19/17 23:35 02/19/17 23:35 02/19/17 23:35 02/19/17 23:35 General appearance: Present: cooperative, mild distress, A&O X 3, pleasant, answers questions appropriately - Head Head exam: Present: atraumatic, normal inspection - Eye Eye exam: Present: EOMI, PERRL. Absent: scleral icterus Pupils: Present: normal accommodation - ENT ENT exam: Present: mucous membranes dry, normal exam - Neck Neck exam general surgery: Absent: normal inspection - Respiratory Respiratory exam: Present: accessory muscle use, respiratory distress (mild), rhonchi, wheezes. Absent: chest wall tenderness, rales - Cardiovascular Cardiovascular exam: Present: distant heart sounds, RRR, +S1, +S2. Absent: systolic murmur - GI/Abdominal GI/Abdominal exam: Present: normal bowel sounds. Absent: guarding, hepatomegaly , mass, splenomegaly, tenderness - Extremities Exam Extremities exam: Present: warm. Absent: calf tenderness, joint swelling, pedal edema - Back Exam Back exam: Absent: CVA tenderness (L), CVA tenderness (R) - Neurological Exam Neurological exam: Present: alert, oriented X3, no focal deficits - Psychiatric Psychiatric exam: Present: normal affect, normal mood - Skin Skin exam: Present: dry, warm. Absent: rash Additional comments: cool extremities; warm centrally Internal Med - H&P Results - Labs CBC & Chem 7: 02/19/17 21:18 02/19/17 21:18 Labs: Short CBC 02/19/17 Range/Units 21:18 WBC 12.2 H (4.3-11.1) K/mcL Hgb 11.3 L (11.5-15.4) g/dL Hct 35.0 L (35.3-44.9) % Plt Count 214 (140-400) K/mcL Neutrophils # 9.8 H (1.6-8.9) K/mcL BMP 02/19/17 21:18 Sodium 137 Potassium 2.9 L Chloride 99 Carbon Dioxide 26 BUN 16 Creatinine 1.35 H Glucose 167 H Calcium 9.0 Cardiac Enzymes 02/19/17 Range/Units 21:18 Troponin I 0.03 (0-0.03) ng/mL Liver Function 02/19/17 Range/Units 21:18 Total Bilirubin 0.7 (0.2-1.2) mg/dL AST 30 (5-34) Units/L ALT 40 (0-55) Units/L Alkaline Phosphatase 194 H (38-126) Units/L Albumin 3.1 L (3.5-5.0) g/dL - EKG Data -: EKG Interpreted by Myself - EKG Data EKG comments: 02/19/17 23:56 NSR; no acute changes - Attending Attestation I discussed the patient [place], PMH, ROS, lab data, exam findings, and work-up at [facility] with Dr. Ralph. I also reviewed the [facility] and our old records. I then saw and examined patient independently as well. Patient reports fevers and chills, and I suspect her source of sepsis is UTI. She has cool extremities but is warm centrally. She denies CP but admits to SOB, wheezing, and productive cough. We will cycle troponins and EKG's, but I do not suspect cardiac cause of SOB at this time. I suspect it is due to COPD and pneumonia. I will increase her Rocephin dose. Other than my comments above and noted exam findings, I agree with Dr. Ralph's assessment and plan.
[2017-02-19] MEDS ORDERED: *HR* Dextrose 50 % in Water (Syg) 50 ML SYRINGE IVP PRN (21:22)
[2017-02-19] MEDS ORDERED: D5% in Water 1,000 ML IVC PRN (21:22)
[2017-02-19] MEDS ORDERED: Dextrose Gel 15 GM PO PRN ×2 (21:22)
[2017-02-19 21:25] LABS: Basophils % 0.2 %; Eosinophils % 0.3 %; Hemoglobin 11.3 g/dL (11.5-15.4); Immature Granulocytes % 0.4 % (0-4); Lymphocytes # 1.2 K/mcL (0.6-4.6); Mean Corpuscular HGB Conc 32.3 g/dL (31.6-35.5); Mean Corpuscular Hemoglobin 26.3 pg (28.0-33.3); Mean Corpuscular Volume 81.4 fL (83.0-100.0); Mean Platelet Volume 9.4 fL (9.4-12.4); Monocytes # 1.1 K/mcL (0.0-1.3); Monocytes % 9.1 %; Neutrophils # 9.8 K/mcL (1.6-8.9); Platelet Count 214 K/mcL (140-400); Red Cell Distribution Width 16.7 % (11.5-14.5)
[2017-02-19] MEDS ORDERED: *HR* Enoxaparin 80 MG/0.8 ML SYRINGE SQ STA (21:25)
[2017-02-19 21:33] LABS: INR 1.1; Prothrombin Time 11.9 Seconds (9.4-12.1)
[2017-02-19 21:36] LABS: Activated Partial Thrombo Time 27.3 Seconds (26.0-36.0)
[2017-02-19 21:38] LABS: Albumin 3.1 g/dL (3.5-5.0); Albumin/Globulin Ratio 0.8 (1.1-2.2); Bilirubin,Total 0.7 mg/dL (0.2-1.2); Phosphorous 2.7 mg/dL (2.3-4.7); Potassium 2.9 mEq/L (3.5-4.5); Total Protein 7.1 g/dL (6.0-8.3)
[2017-02-19] MEDS ORDERED: 0.9 % Sodium Chloride 1,000 ML IVC ONE (21:56)
[2017-02-19] MEDS ORDERED: *HR* Heparin 5,000 UNIT/ML VIAL SQ SCH (22:00)
[2017-02-19] MEDS ORDERED: 0.9 % Sodium Chloride 1,000 ML ONE (22:02)
[2017-02-19] MEDS: clonazePAM 0.5 MG TABLET PO SCH (22:03)
[2017-02-19] MEDS ORDERED: Potassium Chloride Elixir 20 MEQ/15 ML UDC PO ONE (22:13)
[2017-02-19] MEDS: Azithromycin 500 MG in D5% in Water 250 ML IVPB SCH (22:17)
[2017-02-19] MEDS: Fluticasone Propionate Nasal 50 MCG/SPRAY BOTTLE NS SCH (22:20)
[2017-02-19] MEDS: Beclomethasone 40mcg MDI IH SCH (22:58)
[2017-02-19] MEDS: Ipratropium/Albuterol Neb 3 ML IH SCH (23:00)
[2017-02-19] MEDS: Acetaminophen 325 MG TABLET PO PRN (23:58)
[2017-02-20 03:11] LABS: Bilirubin,Urine Negative (Negative); Blood,Urine Moderate (Negative); Clarity,Urine Clear (Clear); Color,Urine Yellow (Yellow); Glucose,Urine (UA) Normal (Normal); Ketones,Urine Negative (Negative); Leukocyte Esterase,Urine Small (Negative); Nitrite,Urine Negative (Negative); PH,Urine 6.5 pH Units (5.0-8.0); Protein,Urine Negative (Neg-Trace); Specific Gravity,Urine 1.006 (1.010-1.025); Urobilinogen,Urine Normal (Normal)
[2017-02-20 03:25] LABS: Bacteria,Urine Few per hpf (None-Few); Mucus,Urine Few (Few); Squamous Epithelial Cell,Urine Few per lpf (None-Few); WBC,Urine 0-3 per hpf (0-3)
[2017-02-20] MEDS: Ipratropium/Albuterol Neb 3 ML IH SCH ×6 (04:16→23:17)
[2017-02-20] MEDS ORDERED: Furosemide 40 MG TABLET PO SCH (06:00)
[2017-02-20] MEDS: Gabapentin 400 MG CAPSULE PO SCH ×2 (06:04→17:01)
[2017-02-20] MEDS: *HR* Heparin 5,000 UNIT/ML VIAL SQ SCH ×2 (06:04→17:02)
[2017-02-20] MEDS: Tiotropium 18 MCG inhalation IH SCH (08:11)
[2017-02-20] MEDS: Beclomethasone 40mcg MDI IH SCH ×2 (08:12→20:14)
[2017-02-20] MEDS: Aspirin Enteric Coated 81 MG Tablet PO SCH (08:17)
[2017-02-20] MEDS: clonazePAM 0.5 MG TABLET PO SCH ×2 (08:18→21:19)
[2017-02-20] MEDS: amLODIPine 5 MG TABLET PO SCH (08:18)
[2017-02-20] MEDS: predniSONE 20 MG TABLET PO SCH (08:18)
[2017-02-20] MEDS: *HR* Ticagrelor 90 MG TABLET PO SCH ×2 (08:18→21:20)
[2017-02-20] MEDS: Isosorbide MONOnitrate (24 HR) 60 MG TAB.ER.24H PO SCH (08:18)
[2017-02-20] MEDS: Fluticasone Propionate Nasal 50 MCG/SPRAY BOTTLE NS SCH ×2 (08:19→21:21)
[2017-02-20] MEDS: Insulin LISPRO 300 UNITS/3 ML VIAL SQ SCH ×3 (08:24→16:49)
[2017-02-20 08:32] LABS: Basophils % 0.3 %; Eosinophils % 0.2 %; Hematocrit 32.2 % (35.3-44.9); Hemoglobin 10.6 g/dL (11.5-15.4); Immature Granulocytes % 0.6 % (0-4); Lymphocytes # 0.8 K/mcL (0.6-4.6); Lymphocytes % 7.1 %; Mean Corpuscular HGB Conc 32.9 g/dL (31.6-35.5); Mean Corpuscular Hemoglobin 26.9 pg (28.0-33.3); Mean Corpuscular Volume 81.7 fL (83.0-100.0); Mean Platelet Volume 9.5 fL (9.4-12.4); Monocytes # 1.1 K/mcL (0.0-1.3); Monocytes % 9.2 %; Neutrophils # 9.8 K/mcL (1.6-8.9); Platelet Count 179 K/mcL (140-400); Red Blood Count 3.94 M/mcL (3.82-4.97); Red Cell Distribution Width 16.5 % (11.5-14.5); Segmented Neutrophils % 82.6 %
[2017-02-20 08:45] LABS: BUN/Creatinine Ratio 11 (6-26); Blood Urea Nitrogen 10 mg/dL (7-20); Calcium 8.6 mg/dL (8.6-10.8); Carbon Dioxide 26 mEq/L (19-29); Chloride 104 mEq/L (98-109); Glucose 167 mg/dL (70-99); Osmolality,Calculated 285 (280-300); Potassium 3.4 mEq/L (3.5-4.5); Sodium 136 mEq/L (136-145); eGFR For African Americans > 60 (> 60); eGFR For Non-African Americans > 60 (> 60)
[2017-02-20] MEDS ORDERED: Isosorbide MONOnitrate (24 HR) 60 MG TAB.ER.24H PO SCH (09:00)
[2017-02-20] MEDS ORDERED: Lisinopril 20 MG TABLET PO SCH (09:00)
[2017-02-20] MEDS ORDERED: *HR* Enoxaparin 80 MG/0.8 ML SYRINGE SQ SCH (10:00)
--- NOTE | 2017-02-20 11:14 | Internal Med Progress Note ---
Date of Encounter: 02/20/17 Time of Encounter: 10:45 - Assessment and plan (1) Sepsis Current Visit: Yes Status: Acute Assessment and plan: Pt presented with 2-3 day history of fever at home, fever on presentation, leukocytosis. Pt is tachypneic, but denies that she is above her normal baseline tachypnea. Leukocytosis is resolving. Lactic acid is negative. She is being treated for UTI and CAP. Blood, urine, and sputum cultures are pending. Continue IVF Monitor pt condition, vitals, and labs Continue IV antibiotics . Cultures pending. Qualifiers: Sepsis type: sepsis due to unspecified organism Qualified Code(s): A41.9 - Sepsis, unspecified organism (2) Community acquired bacterial pneumonia Current Visit: Yes Status: Suspected Assessment and plan: Suspected. Pt with leukocytosis, fever, cough, wheezing, rhinorrhea, nasal congestion. Possible source of sepsis. Pt with wheezing and ronchi in post lung chairez. Pt is tachypneic at rest and is wearing 3L 02 via n/c, which is not above her baseline 02 need. (3) UTI (urinary tract infection) Current Visit: No Status: Acute Assessment and plan: Urine positive for blood, leukocyte esterase, bacteria, and mucus. Culture is pending. Continue IV Rocephin. Qualifiers: Urinary tract infection type: acute cystitis Hematuria presence: without hematuria Qualified Code(s): N30.00 - Acute cystitis without hematuria (4) Non-insulin dependent type 2 diabetes mellitus Current Visit: No Status: Chronic Assessment and plan: A1c 5.9 in Aug. Will reorder for the a.m. Continue SSI, accucheck achs, and diabetic diet. (5) GERD (gastroesophageal reflux disease) Current Visit: No Status: Chronic Assessment and plan: Chronic. Continue home medications. Qualifiers: Esophagitis presence: esophagitis presence not specified Qualified Code(s) : K21.9 - Gastro-esophageal reflux disease without esophagitis (6) CAD (coronary artery disease) Current Visit: No Status: Acute Assessment and plan: Pt with PTCA, PRANAV placement in distal RCA in Aug, 2016. Triple vessel CAD. Continue anticoagulation, ASA, BB. Pt denies chest pain. Qualifiers: Coronary Disease-Associated Artery/Lesion type: [place] artery [place] vs. transplanted heart: [place] heart Associated angina: without angina Qualified Code(s): I25.10 - Atherosclerotic heart disease of [place] coronary artery without angina pectoris (7) COPD (chronic obstructive pulmonary disease) Current Visit: No Status: Acute Assessment and plan: Pt being treated for CAP. Pt on antibiotics. Will continue nebulizer treatments and maintain 02, titrate to maintain sats > 92%. Pt currently on 3L and wears 3L at home, as well. Qualifiers: COPD type: unspecified COPD Qualified Code(s): J44.9 - Chronic obstructive pulmonary disease, unspecified (8) Tobacco abuse Current Visit: No Status: Acute Assessment and plan: Pt smokes 1 PPD. Wouild like to try Chantix on discharge. (9) Elevated troponin Current Visit: Yes Status: Acute Assessment and plan: Most likely demand ischemia from sepsis, fever. Limited echo ordered for evaluation. Prior echo in Aug, 2016 with LVEF of 55% , normal systolic function , mild LVDD, mild MR. Pt denies chest pain. (10) DVT prophylaxis Current Visit: Yes Status: Acute Assessment and plan: Heparin SQ - Time Spent With Patient less than 15 minutes - Constitutional Vitals: Temp Pulse Resp BP Pulse Ox 99.1 F 89 18 164/92 93 02/20/17 07:21 02/20/17 07:21 02/20/17 08:13 02/20/17 07:21 02/20/17 08:13 General appearance: Present: cooperative, mild distress, A&O X 3, pleasant, answers questions appropriately - Head Head exam: Present: normal inspection - Eye Eye exam: Present: EOMI, normal appearance, conjuntiva pink - ENT ENT exam: Present: mucous membranes moist, normal exam, normal external ear exam - Neck Neck exam general surgery: Present: normal inspection. Absent: lymphadenopathy , tenderness - Respiratory Respiratory exam: Present: decreased breath sounds, rhonchi, wheezes, tachypnea. Absent: chest wall tenderness, rales, respiratory distress - Cardiovascular Cardiovascular exam: Present: RRR, +S1, +S2. Absent: clicks, diastolic murmur, gallop, systolic murmur - GI/Abdominal GI/Abdominal exam: Present: distended, normal bowel sounds, soft, tenderness. Absent: hepatomegaly - Extremities Exam Extremities exam: Present: normal inspection, warm, radial pulses palpable and symmetrical. Absent: joint swelling, pedal edema, tenderness - Neurological Exam Neurological exam: Present: alert, oriented X3, no focal deficits, strengths equal and symetr throughout. Absent: altered, facial droop, speech deficit Internal Medicine: Result - Labs CBC & Chem 7: 02/20/17 08:24 02/20/17 08:24 Labs: Short CBC 02/19/17 02/20/17 Range/Units 21:18 08:24 WBC 12.2 H 11.8 H (4.3-11.1) K/mcL Hgb 11.3 L 10.6 L (11.5-15.4) g/dL Hct 35.0 L 32.2 L (35.3-44.9) % Plt Count 214 179 (140-400) K/mcL Neutrophils # 9.8 H 9.8 H (1.6-8.9) K/mcL BMP 02/19/17 02/20/17 21:18 08:24 Sodium 137 136 Potassium 2.9 L 3.4 L Chloride 99 104 Carbon Dioxide 26 26 BUN 16 10 Creatinine 1.35 H 0.89 Glucose 167 H 167 H Calcium 9.0 8.6 Cardiac Enzymes 02/19/17 02/20/17 02/20/17 Range/Units 21:18 03:58 08:24 Troponin I 0.03 0.04 H* 0.03 (0-0.03) ng/mL Liver Function 02/19/17 Range/Units 21:18 Total Bilirubin 0.7 (0.2-1.2) mg/dL AST 30 (5-34) Units/L ALT 40 (0-55) Units/L Alkaline Phosphatase 194 H (38-126) Units/L Albumin 3.1 L (3.5-5.0) g/dL Urine 02/20/17 Range/Units 02:30 Urine Color Yellow (Yellow) Urine Clarity Clear (Clear) Urine pH 6.5 (5.0-8.0) pH Units Ur Specific [place] 1.006 L (1.010-1.025) Urine Protein Negative (Neg-Trace) mg/dL Urine Glucose (UA) Normal (Normal) mg/dL - ABG Interpretation ABG results: PT/INR, D-dimer PT 11.9 Seconds (9.4-12.1) 02/19/17 21:18 Consult Discharge Plan - Plan Referrals: Kiel Fisher DO [Primary Care Provider] -
[2017-02-20] MEDS ORDERED: Insulin LISPRO 300 UNITS/3 ML VIAL SQ SCH (21:00)
[2017-02-20] MEDS: Azithromycin 500 MG in D5% in Water 250 ML IVPB SCH (21:20)
[2017-02-21] MEDS: Acetaminophen 325 MG TABLET PO PRN (01:37)
[2017-02-21] MEDS: Ipratropium/Albuterol Neb 3 ML IH SCH ×2 (03:47→08:09)
[2017-02-21 05:01] LABS: Basophils % 0.2 %; Eosinophils % 0.2 %; Hematocrit 32.7 % (35.3-44.9); Hemoglobin 10.4 g/dL (11.5-15.4); Immature Granulocytes % 0.9 % (0-4); Lymphocytes # 1.5 K/mcL (0.6-4.6); Lymphocytes % 14.1 %; Mean Corpuscular HGB Conc 31.8 g/dL (31.6-35.5); Mean Corpuscular Hemoglobin 25.9 pg (28.0-33.3); Mean Corpuscular Volume 81.5 fL (83.0-100.0); Mean Platelet Volume 9.7 fL (9.4-12.4); Monocytes # 0.8 K/mcL (0.0-1.3); Monocytes % 7.4 %; Neutrophils # 7.9 K/mcL (1.6-8.9); Platelet Count 224 K/mcL (140-400); Red Blood Count 4.01 M/mcL (3.82-4.97); Red Cell Distribution Width 16.3 % (11.5-14.5); Segmented Neutrophils % 77.2 %
[2017-02-21 05:16] LABS: BUN/Creatinine Ratio 13 (6-26); Blood Urea Nitrogen 11 mg/dL (7-20); Calcium 9.5 mg/dL (8.6-10.8); Carbon Dioxide 26 mEq/L (19-29); Chloride 108 mEq/L (98-109); Glucose 163 mg/dL (70-99); Osmolality,Calculated 297 (280-300); Potassium 3.3 mEq/L (3.5-4.5); Sodium 142 mEq/L (136-145); eGFR For African Americans > 60 (> 60); eGFR For Non-African Americans > 60 (> 60)
[2017-02-21] MEDS: Gabapentin 400 MG CAPSULE PO SCH (05:45)
[2017-02-21] MEDS: *HR* Heparin 5,000 UNIT/ML VIAL SQ SCH (05:46)
[2017-02-21 07:42] VITALS: BP 154/69
[2017-02-21] MEDS: Beclomethasone 40mcg MDI IH SCH (08:09)
[2017-02-21] MEDS: *HR* Ticagrelor 90 MG TABLET PO SCH (08:45)
[2017-02-21] MEDS: Isosorbide MONOnitrate (24 HR) 60 MG TAB.ER.24H PO SCH (08:45)
[2017-02-21] MEDS: predniSONE 20 MG TABLET PO SCH (08:45)
[2017-02-21] MEDS: Aspirin Enteric Coated 81 MG Tablet PO SCH (08:45)
[2017-02-21] MEDS: amLODIPine 5 MG TABLET PO SCH (08:46)
[2017-02-21] MEDS: clonazePAM 0.5 MG TABLET PO SCH (08:46)
[2017-02-21] MEDS: Insulin LISPRO 300 UNITS/3 ML VIAL SQ SCH (08:47)
[2017-02-21] MEDS: Fluticasone Propionate Nasal 50 MCG/SPRAY BOTTLE NS SCH (09:00)
--- NOTE | 2017-02-21 10:00 | Discharge Summary ---
Date of Encounter: 02/21/17 Time of Encounter: 08:40 - Discharge Diagnosis (1) Sepsis Priority: Primary Status: Resolved Comments: No leukocytosis, WBC count has returned to normal. Pt has been afebrile since arrival, no tachypnea or tachycardia, blood pressure is at pt's baseline. Urine culture with no pathogens, Blood cultures negative x 2. Lactic acid level WNL. possible source of infection suspected pneumonia. Qualifiers: Sepsis type: sepsis due to unspecified organism Qualified Code(s): A41.9 - Sepsis, unspecified organism (2) Community acquired bacterial pneumonia Priority: Secondary Status: Suspected Comments: Pt has ronchi in left posterior chairez. Clear and diminished in other lung chairez. Will continue Zithromax after discharge. Sats are WNL on pt's normal 3L 02 via n/c. (3) UTI (urinary tract infection) Priority: Secondary Status: Ruled-out Comments: Urine culture without pathogens. Qualifiers: Urinary tract infection type: acute cystitis Hematuria presence: without hematuria Qualified Code(s): N30.00 - Acute cystitis without hematuria (4) Non-insulin dependent type 2 diabetes mellitus Priority: Secondary Status: Chronic Comments: Continue home medications. (5) GERD (gastroesophageal reflux disease) Priority: Secondary Status: Chronic Comments: Continue home medications. Qualifiers: Esophagitis presence: esophagitis presence not specified Qualified Code(s) : K21.9 - Gastro-esophageal reflux disease without esophagitis (6) CAD (coronary artery disease) Priority: Secondary Status: Acute Comments: Pt with PRANAV placement in Aug, 2016. Pt with history of triple vessel CAD. Continue ASA, BB, and anticoagulation. Pt denies chest pain. Qualifiers: Coronary Disease-Associated Artery/Lesion type: [place] artery [place] vs. transplanted heart: [place] heart Associated angina: without angina Qualified Code(s): I25.10 - Atherosclerotic heart disease of [place] coronary artery without angina pectoris (7) COPD (chronic obstructive pulmonary disease) Priority: Secondary Status: Chronic Comments: Consider mild exacerbation. Pt with ronchi in post lung chairez. Pt being treated for CAP. Continue home medications and home 02, as well as Zithromax . Qualifiers: COPD type: unspecified COPD Qualified Code(s): J44.9 - Chronic obstructive pulmonary disease, unspecified (8) Tobacco abuse Priority: Secondary Status: Chronic Comments: Pt will try Chantix at home. (9) Elevated troponin Priority: Secondary Status: Acute Comments: Most likely demand ischemia from sepsis, fever. Limited echo with preseverd EF 06-65%, normal systolic function. Prior echo in Aug, 2016 with LVEF of 55% , normal systolic function, mild LVDD, mild MR. Pt denies chest pain. (10) DVT prophylaxis Priority: Secondary Status: Acute Comments: Heparin SQ - Discharge Medications Prescriptions: Azithromycin [Zithromax] 250 mg PO DAILY #5 tablet GuaiFENesin ER [Mucinex] 600 mg PO BID #60 tbbp.12hr Nicotine Patch [Nicoderm] 14 mg TD DAILY #28 patch.td24 Home Medications: Aspirin [Lo-Dose Aspirin EC] 81 mg PO DAILY 02/18/16 [History] Carvedilol [Coreg] 25 mg PO BID 02/18/16 [History] Furosemide [Lasix] 40 mg PO TID 02/18/16 [History] Gabapentin [Neurontin] 400 mg PO TID 02/18/16 [History] Pantoprazole Sodium 40 mg PO DAILY 02/18/16 [History] Potassium Chloride [K-Tab ER] 10 meq PO BID 02/18/16 [History] clonazePAM [Clonazepam] 0.5 mg PO BID 02/18/16 [History] Tiotropium [Spiriva] 18 mcg IH DAILYR inh 03/07/16 [Rx] metFORMIN [Glucophage] 500 mg PO BID #0 09/04/16 [Rx] Albuterol Sulfate [Albuterol Inhaler] 2 puff IH Q6HR PRN 02/19/17 [History] Amlodipine Besylate 10 mg PO DAILY 02/19/17 [History] Atorvastatin [Lipitor] 40 mg PO HS 02/19/17 [History] Beclomethasone Diprop 40mcg [QVAR 40 mcg] 2 puff IH BID 02/19/17 [History] Citalopram [CeleXA] 20 mg PO DAILY 02/19/17 [History] Ergocalciferol (VITAMIN D2) [Vitamin D2] 50,000 unit PO QWEEK 02/19/17 [History] Ferrous Sulfate 325 mg PO BIDWM 02/19/17 [History] Fluticasone Propionate Nasal [Flonase] 50 mcg NS BID 02/19/17 [History] Ipratropium/Albuterol Neb [Duoneb] 3 ml IH Q4HR PRN 02/19/17 [History] Isosorbide MONOnitrate (24 HR) [Imdur] 120 mg PO DAILY 02/19/17 [History] Ticagrelor [Brilinta] 90 mg PO BID 02/19/17 [History] Azithromycin [Zithromax] 250 mg PO DAILY #5 tablet 02/21/17 [Rx] GuaiFENesin ER [Mucinex] 600 mg PO BID #60 tbbp.12hr 02/21/17 [Rx] Nicotine Patch [Nicoderm] 14 mg TD DAILY #28 patch.td24 02/21/17 [Rx] Allergies/Adverse Reactions: 3 Allergy/AdvReac Type Severity Reaction Status Date / Time hydrocodone [From Vicodin] Allergy Hives Verified 07/12/15 08:51 budesonide [From Symbicort] AdvReac Cough Verified 02/20/16 08:46 Formoterol [From Symbicort] AdvReac Cough Verified 02/20/16 08:46 Procedures/tests Complete & Pending: Procedures Performed prior 72 hours Category Date Time Status EV limited echocardiogram Routine Y 02/20/17 09:37 Completed Date of admission: 02/20/17 00:09 Primary care physician: Kiel Fisher Consults: 02/19/17 21:22 Consult to Regional Climate Change Analyst [CONS] Routine Reason for SW Consult: Discharge Planning. Has Home Health and Home O2 Discharging clinician: Dianna Rivers Anticipated date of discharge: 02/21/17 - Patient Status Disposition: Home, Self-Care Condition: Good Functional capacity at discharge: independent ambulation Overall status at discharge: patient is progressing back to baseline - Discharge Instructions Follow Up With: Kiel Fisher DO [Primary Care Provider] - Additional Instructions: I have called in your prescriptions to [facility]. Take Zithromax 1 tablet daily for 5 days Mucinex take 1 tablet up to 2 times daily as needed for congestion Nicotine patches, use as directed. I did not give you a prescription for Chantix due to you already being on Celexa. Follow up with your PCP in the next week for a follow up appointment. Return to the ER as needed for any other problems or concerns or if you become worse. - Diet and Activity Activity: wear oxygen at night Diet: advance to your usual diet Hospital course: Ms. Ferguson is a 57 year old female post medical history of respiratory failure , COPD, RICHIE, hypertension, PVD, CAD, CHF, dyslipidemia, diabetes, anxiety, tobacco abuse, and GERD. Patient presented to the emergency room with complaint of fever for 2 days prior to arrival, weakness, chills, worsening dyspnea, productive cough with sputum, nasal congestion, rhinorrhea. Patient was transferred here from [facility] in [place]. She was found to have a fever of 101.6, leukocytosis, and suspected urinary tract infection. Urine was positive for moderate amount of blood, small amount of leukocyte esterase few bacteria and mucus. Chest x-ray was negative. Patient had mild, flat troponin elevation that was most likely due to demand ischemia from fever, sepsis. She was transferred to this facility for continued treatment. She was treated for community-acquired pneumonia with Zithromax. She was treated for suspected UTI with Rocephin. Patient had limited echocardiogram yesterday showed preserved ejection fraction and mild diastolic dysfunction. Unchanged from prior echocardiogram earlier this year. Patient denied chest pain or nausea, vomiting, diarrhea. She does wear home oxygen and remained at her baseline demand in use. The final urine culture was negative for any pathogens, cultures were negative 2. Patient was without leukocytosis or fever today. She remains afebrile since admission. Patient has rhonchi and left posterior lung chairez, other chairez are clear and diminished. Patient states that she feels significantly better today and wants to go home. We discussed smoking cessation and originally had agreed on attempting Chantix at home, she is already on an SSRI so I have given her a prescription for NicoDerm patches. She is doing well with them here. She will also be given a prescription for Zithromax by mouth for 5 days and Mucinex twice a day when necessary congestion. Patient's vitals and labs are within normal limits and patient is ready for discharge. Time spent discussing smoking cessation with patient: 3 to 10 minutes - Time Spent with Patient Total time spent providing and/or coordinating discharge services: Less than 30 minutes - Constitutional Vitals: Temp Pulse Resp BP Pulse Ox 97.8 F 73 18 154/69 95 02/21/17 07:35 02/21/17 07:35 02/21/17 08:09 02/21/17 07:35 02/21/17 08:47 General appearance: Present: cooperative, mild distress, A&O X 3, pleasant, answers questions appropriately - Head Head exam: Present: normal inspection, normocephalic - Eye Eye exam: Present: normal appearance, conjuntiva pink - Neck Neck exam general surgery: Present: normal inspection. Absent: lymphadenopathy , tenderness - Respiratory Respiratory exam: Present: CTAB, rhonchi. Absent: chest wall tenderness, rales , respiratory distress, stridor, wheezes, tachypnea - Cardiovascular Cardiovascular exam: Present: RRR, +S1, +S2. Absent: clicks, diastolic murmur, gallop, systolic murmur - GI/Abdominal GI/Abdominal exam: Present: distended, normal bowel sounds, soft. Absent: hepatomegaly, tenderness - Extremities Exam Extremities exam: Present: normal capillary refill, warm, radial pulses palpable and symmetrical. Absent: pedal edema, tenderness - Neurological Exam Neurological exam: Present: alert, oriented X3, no focal deficits. Absent: altered, facial droop, speech deficit
[2017-02-21] MEDS: Tiotropium 18 MCG inhalation IH SCH (10:59)
== END 2017-02-21 11:18 | disposition home or self-care (01) | DRG 871 ==
LOC: 3BNU
PROVIDERS: ADMIT Registered Nurse; ATTEND Registered Nurse

== ENCOUNTER 2018-07-20 18:11 | Inpatient (IN) ==
[2018-07-20] MEDS ORDERED: Naloxone 0.4 MG/ML INJ IVP PRN (23:40)
[2018-07-20] MEDS ORDERED: *HR* Dextrose 50 % in Water (Syg) 50 ML SYRINGE IVP PRN (23:49)
[2018-07-20] MEDS ORDERED: D5% in Water 1,000 ML IVC PRN (23:49)
[2018-07-20] MEDS ORDERED: Dextrose Gel 15 GM/37.5 ML TUBE PO PRN ×2 (23:49)
[2018-07-20] MEDS ORDERED: Nicotine 21 MG PATCH.TD24 TD PRN (23:54)
[2018-07-20] MEDS ORDERED: Ipratropium/Albuterol Neb 3 ML IH PRN (23:57)
[2018-07-20] MEDS ORDERED: Albuterol 2.5 MG/3 ML NEBULIZER IH PRN (23:58)
--- NOTE | 2018-07-21 03:09 | Internal Med History&Physical ---
Date of Encounter: 07/20/18 Time of Encounter: 21:50 Internal Medicine - H&P: HPI Chief complaint: Fever Admitted From: Hospital to Hospital Transfer Plans for Post Hospital Care: Home History of present illness: Ms. Ferguson is a 58 year old female Patient presented to the [facility] emergency room after having fevers at home. She says that her fever at home was 103.8. Symptoms began about 2 days ago, she tried taking Tylenol but did not improve. Her noted also that she was also talking to her hands, as if she was having a conversation with them. She recently had a triple bypass on June 26, 2018. The [facility] emergency room, patient's CBC showed a hemoglobin of 9, white count of 10.1. Her BMP showed a sodium of 131 and a creatinine of 1.57. Her lactate was not elevated at 1.2. Patient's urinalysis was negative for nitrites and had small leukocyte esterase. Chest x-ray which was read by the ER attending was described as no acute process however this report was not included in the documentation sent from [facility]. Patient's initial temperature was 103.9. She was given pain dose of Tylenol and ibuprofen, blood cultures and urine cultures were drawn and she was given 1 g of ceftriaxone. No obvious source of her fever had been found. She was transferred to [facility] for further management. Upon my evaluation, patient states she is feeling much better. Her temperature has improved, and she is now afebrile. She states she has had some burning with urination despite her urinalysis. She has no chest pain, shortness of breath, diarrhea, constipation, abdominal pain, vomiting or nausea. She has no significant tenderness around her incision site from her triple bypass surgery, no erythema or discharge from the wound. She is a smoker, but says that she quit prior to her triple bypass surgery. She was a 2 pack-a-day smoker. After leaving the patient's room, patient's daughter meet with me in the hallway. She says that she is concerned about her mother's living condition, she says that her home is filthy and her current does not take good care of her. She had her mother living at her house that she recently moved into this new living situation. She requested that social work meet with the patient during this hospitalization. Past Med Surg Social Fam HX - Past Medical History Medical history: CHF, COPD, coronary artery disease, diabetes, hyperlipidemia, hypertension, myocardial infarction, peripheral artery disease Additional medical history: HOME O2 3L. SLEEP APNEA, CPAP Psychiatric history: anxiety, depression - Past Surgical History Surgical History: angioplasty/stent, hysterectomy, other, vascular surgery Additional surgical history: tonsillectomy; aorta bifemoral double bypass - Social History Smoking Status: Former smoker Smokeless Tobacco Status: No Alcohol use: none Drug use: none - Family History Daughter Living Status: Hx Family Cardiac Disorders: Yes (father had CHF) Hx Family Respiratory Disorders: No Hx Family Cancer: Yes Hx Family GI Disorders: No Hx Family Endocrine Disorder: Yes Hx Family Neuromuscular Disorders: No Hx Family Neurologic Disorders: No Hx Family HEENT Disorders: No Hx Family Autoimmune Disorders: No Brother Living Status: Hx Family Cardiac Disorders: Yes Hx Family Respiratory Disorders: Yes Hx Family Cancer: Yes Hx Family GI Disorders: No Hx Family Endocrine Disorder: Yes Hx Family Neuromuscular Disorders: No Hx Family Neurologic Disorders: No Hx Family HEENT Disorders: No Hx Family Autoimmune Disorders: No Son Living Status: Still Living Hx Family Cardiac Disorders: Yes (HTN) Hx Family Respiratory Disorders: Yes (Childhood Asthma) Hx Family Cancer: No Hx Family GI Disorders: No Hx Family Endocrine Disorder: No Hx Family Neuromuscular Disorders: No Hx Family Neurologic Disorders: No Hx Family HEENT Disorders: No Hx Family Autoimmune Disorders: No Father Name: Jesse Horn Living Status: Age at : 74 Cause of : COPD Hx Family Cardiac Disorders: Yes (CHF) Hx Family Respiratory Disorders: Yes (COPD) Hx Family Cancer: No Hx Family GI Disorders: No Hx Family Genitourinary Disorders: No Hx Family Endocrine Disorder: No Hx Family Musculoskeletal Disorders: No Hx Family Neuromuscular Disorders: No Hx Family Neurologic Disorders: No Hx Family HEENT Disorders: No Hx Family Autoimmune Disorders: No Hx Family Reproductive Disorders: No Hx Family Psychosocial Disorders: No Hx Family Medical Disorders: No Mother Name: Vidhi Horn Family Member Ethnicity: Non- Living Status: Age at : 70 Cause of : Pneumonia Hx Family Cardiac Disorders: Yes Hx Family Respiratory Disorders: No Hx Family Cancer: No Hx Family GI Disorders: No Hx Family Genitourinary Disorders: No Hx Family Endocrine Disorder: No Hx Family Musculoskeletal Disorders: No Hx Family Neuromuscular Disorders: No Hx Family Neurologic Disorders: No Hx Family HEENT Disorders: No Hx Family Autoimmune Disorders: No Hx Family Reproductive Disorders: No Hx Family Psychosocial Disorders: No Hx Family Medical Disorders: No Internal Medicine - H&P: Meds Carvedilol [Coreg] 25 mg PO BID 02/18/16 [History] Furosemide [Lasix] 40 mg PO TID 02/18/16 [History] Gabapentin [Neurontin] 600 mg PO TID 02/18/16 [History] Potassium Chloride [K-Tab ER] 10 meq PO DAILY 02/18/16 [History] clonazePAM [Clonazepam] 0.5 mg PO BID PRN 02/18/16 [History] metFORMIN [Glucophage] 500 mg PO BID #0 09/04/16 [Rx] Albuterol Sulfate [Albuterol Inhaler] 2 puff IH DAILY PRN 02/19/17 [History] Atorvastatin [Lipitor] 40 mg PO HS 02/19/17 [History] Ergocalciferol (VITAMIN D2) [Vitamin D2] 50,000 unit PO CABELLO 02/19/17 [History] Ferrous Sulfate 325 mg PO DAILY 02/19/17 [History] Fluticasone Propionate Nasal [Flonase] 50 mcg NS BID 02/19/17 [History] Ipratropium/Albuterol Neb [Duoneb] 3 ml IH Q4HR PRN 02/19/17 [History] Isosorbide MONOnitrate (24 HR) [Imdur] 60 mg PO DAILY 02/19/17 [History] Ticagrelor [Brilinta] 90 mg PO BID 02/19/17 [History] Citalopram Hydrobromide [Citalopram HBr] 40 mg PO DAILY 06/04/18 [History] Pantoprazole Sodium [Protonix] 40 mg PO DAILY 06/04/18 [History] Amlodipine Besylate 10 mg PO DAILY 06/16/18 [History] Nitroglycerin 0.4 mg PO AD PRN 06/17/18 [History] Aspirin 81 mg PO DAILY tab.chew 07/01/18 [Rx] Allergy/AdvReac Type Severity Reaction Status Date / Time hydrocodone [From Vicodin] Allergy See Verified 06/17/18 09:39 Comments budesonide [From Symbicort] AdvReac Difficulty Verified 06/17/18 09:39 Breathing bupropion [From Wellbutrin] AdvReac See Verified 06/17/18 09:39 Comments Formoterol [From Symbicort] AdvReac Difficulty Verified 06/17/18 09:39 Breathing All Systems PM: A 10-system review of systems was performed and is negative for pertinent findings except as documented above in the HPI. - Constitutional Vitals: Temp Pulse Resp BP Pulse Ox 97.8 F 79 16 124/70 100 07/21/18 00:00 07/21/18 00:00 07/21/18 00:00 07/21/18 00:00 07/21/18 00:00 General appearance: Present: cooperative, A&O X 3, pleasant, no acute distress, answers questions appropriately Exam: - - Head Head exam: Present: normal inspection - Eye Eye exam: Present: EOMI, normal appearance - Respiratory Respiratory exam: Present: rales, wheezes. Absent: CTAB, respiratory distress, rhonchi - Cardiovascular Cardiovascular exam: Present: RRR. Absent: diastolic murmur, systolic murmur - GI/Abdominal GI/Abdominal exam: Present: normal bowel sounds, soft. Absent: tenderness - Extremities Exam Extremities exam: Present: pedal edema, warm, radial pulses palpable and symmetrical. Absent: tenderness - Neurological Exam Neurological exam: Present: no focal deficits, strengths equal and symetr throughout. Absent: motor sensory deficit, facial droop, speech deficit - Skin Skin exam: Present: dry, normal color, warm - Assessment and plan (1) Fever Current Visit: No Status: Acute Assessment and plan: Could be secondary to urinary tract infection, though the UA was negative for nitrites and small leukocyte esterase, patient does have symptoms of possible urinary tract infection and dysuria. Urine cultures and blood cultures have been drawn and she was started on ceftriaxone prior to her arrival. Fever has since resolved. Continue ceftriaxone Follow-up blood and urine cultures Continue to monitor vitals Tylenol for fever Monitor for worsening signs of infection Qualifiers: Fever type: unspecified Qualified Code(s): R50.9 - Fever, unspecified (2) Urinary tract infection Current Visit: No Status: Acute Assessment and plan: Patient's urinalysis not definitively demonstrating infection, but patient does have symptoms of possible urinary tract infection. No other obvious source of infection explains fever, which has now resolved. Follow-up urine culture Follow-up blood culture Continue ceftriaxone Qualifiers: Urinary tract infection type: site unspecified Hematuria presence: without hematuria Qualified Code(s): N39.0 - Urinary tract infection, site not specified (3) Anemia Current Visit: No Status: Chronic Assessment and plan: Patient's hemoglobin at [facility] was 9.0, previous labs from July 18 show her hemoglobin of 11.0. No obvious signs of bleeding. Patient does have a history of iron deficiency anemia. She currently takes iron at home. Repeat labs in the morning Continue to monitor Qualifiers: Anemia type: iron deficiency Iron deficiency anemia type: unspecified iron deficiency Qualified Code(s): D50.9 - Iron deficiency anemia, unspecified (4) COPD (chronic obstructive pulmonary disease) Current Visit: No Status: Chronic Assessment and plan: Patient was a bit wheezy on exam. She has a history of COPD Continue breathing treatments as needed Qualifiers: COPD type: unspecified COPD Qualified Code(s): J44.9 - Chronic obstructive pulmonary disease, unspecified (5) Diabetes mellitus Current Visit: No Status: Chronic Assessment and plan: Diabetic diet Low-dose insulin sliding scale Monitor sugars with meals and at night Hold patient's home diabetes medications Qualifiers: Diabetes mellitus type: type 2 Diabetes mellitus terminal operations manager insulin use: without terminal operations manager use Diabetes mellitus complication status: with unspecified complications Qualified Code(s): E11.8 - Type 2 diabetes mellitus with unspecified complications (6) RICHIE (obstructive sleep apnea) Current Visit: No Status: Chronic Assessment and plan: Continue CPAP at night (7) Tobacco use Current Visit: No Status: Chronic Assessment and plan: Nicotine patch when necessary (8) DVT prophylaxis Current Visit: No Status: Acute Assessment and plan: Subcutaneous heparin - Time Spent With Patient Total time spent is greater than 50% in coordination of care (as documented) at patient's floor/unit and/or counseling patient: Greater than 35 minutes
[2018-07-21] MEDS ORDERED: 0.9 % Sodium Chloride 1,000 ML IVC ONE (03:29)
[2018-07-21 06:06] LABS: Hematocrit 27.8 % (35.3-44.9); Mean Corpuscular HGB Conc 31.3 g/dL (31.6-35.5); Mean Corpuscular Hemoglobin 26.2 pg (28.0-33.3); Mean Corpuscular Volume 83.7 fL (83.0-100.0); Mean Platelet Volume 9.5 fL (9.4-12.4); Platelet Count 265 K/mcL (140-400); Red Blood Count 3.32 M/mcL (3.82-4.97); Red Cell Distribution Width 15.5 % (11.5-14.5)
[2018-07-21] MEDS: Acetaminophen 325 MG TABLET PO PRN ×2 (06:19→12:33)
[2018-07-21] MEDS: *HR* Heparin 5,000 UNIT/ML VIAL SQ SCH ×2 (06:19→17:08)
[2018-07-21 06:23] LABS: Calcium 8.8 mg/dL (8.6-10.3); Potassium 3.1 mEq/L (3.5-5.1)
[2018-07-21 06:28] LABS: Hemoglobin 8.7 g/dL (11.5-15.4)
[2018-07-21] MEDS: Gabapentin 300 MG CAPSULE PO SCH ×3 (09:50→20:15)
[2018-07-21] MEDS: *HR* Ticagrelor 90 MG TABLET PO SCH ×2 (09:51→20:15)
[2018-07-21] MEDS: cefTRIAXone 1,000 MG in Water for inj. (sterile) 20 ML 10 ML IVP SCH (09:51)
[2018-07-21] MEDS: Insulin LISPRO 300 UNITS/3 ML VIAL SQ SCH ×3 (10:04→17:07)
[2018-07-21] MEDS ORDERED: clonazePAM 1 MG TABLET PO PRN (11:04)
--- NOTE | 2018-07-21 11:09 | Internal Med Progress Note ---
Hospitalist Progress Note - Encounter Date of Encounter: 07/21/18 Time of Encounter: 10:00 - Subjective Interval History: States that she feels much better than when she first presented. Other than mild non productive cough and dysuria that is improving, no other focal complaints. Had another episode of [id number] this morning. - Exam Vitals: Temp Pulse Resp BP Pulse Ox 98.2 F 96 16 145/66 95 07/21/18 08:00 07/21/18 08:00 07/21/18 08:00 07/21/18 08:00 07/21/18 08:00 Exam: General: Alert and oriented, not in acute distress. Cardiovascular:Normal S1 & S2, No JVD. Pulse regular. Midline incision noted. Well-healed, no erythema or fluctuance. Lungs: faint, occasional bilaterally wheezes Abdomen:Soft, non-tender, no rigidity. : No CVA tenderness Extremities:No deformity or swelling Neurological:Normal cognition and motor skills. Non-focal - Assessment and Plan (1) Fever Current Visit: Yes Status: Acute Assessment and Plan: small amount of LE on UA at the OSH, also complained of dysuria started on IV ROcephin, continue follow up on blood/urine cultures patient complains of mild cough associated with faint wheezes bilaterally CXR reported to be unremarkable but no official report is available check CXR, RIP start prednisone 40mg QD and scheduled bronchodilators (2) COPD exacerbation Current Visit: Yes Status: Acute Assessment and Plan: mx as above (3) MICKIE (acute kidney injury) Current Visit: Yes Status: Acute Assessment and Plan: improving on IVF patient is able to take by mouth, encourage oral intake d/c IVF hold off on lasix (4) CAD (coronary artery disease) Current Visit: No Status: Chronic Assessment and Plan: Status post recent CABG. Surgical wound appears to be well healed without evidence of infection. Resume home meds (5) Anemia Current Visit: No Status: Chronic Assessment and Plan: At baseline, continue iron supplements (6) Diabetes mellitus Current Visit: No Status: Chronic Assessment and Plan: Hold off on metformin Low-dose sliding scale ADA diet (7) DVT prophylaxis Current Visit: No Status: Acute Assessment and Plan: Subcutaneous heparin - Time Spent with Patient Total time spent is greater than 50% in coordination of care (as documented) at patient's floor/unit and/or counseling patient: Plan of Care Discussed with: patient Internal Medicine: Result - Labs CBC & Chem 7: 07/21/18 05:30 07/21/18 05:30 Labs: Short CBC 07/21/18 Range/Units 05:30 WBC 8.8 (4.3-11.1) K/mcL Hgb 8.7 L D (11.5-15.4) g/dL Hct 27.8 L (35.3-44.9) % Plt Count 265 (140-400) K/mcL BMP 07/21/18 05:30 Sodium 134 L Potassium 3.1 L Chloride 96 L Carbon Dioxide 30 H BUN 16 Creatinine 1.31 H Glucose 155 H Calcium 8.8 Consult Discharge Plan - Plan Referrals: NONE,PCP [Primary Care Provider] - (1) Fever Qualifiers: Fever type: unspecified Qualified Code(s): R50.9 - Fever, unspecified (4) CAD (coronary artery disease) Qualifiers: Coronary Disease-Associated Artery/Lesion type: [place] artery [place] vs. transplanted heart: [place] heart Associated angina: without angina Qualified Code(s): I25.10 - Atherosclerotic heart disease of [place] coronary artery without angina pectoris (5) Anemia Qualifiers: Anemia type: iron deficiency Iron deficiency anemia type: unspecified iron deficiency Qualified Code(s): D50.9 - Iron deficiency anemia, unspecified (6) Diabetes mellitus Qualifiers: Diabetes mellitus type: type 2 Diabetes mellitus box estimator insulin use: without half-way use Diabetes mellitus complication status: with unspecified complications Qualified Code(s): E11.8 - Type 2 diabetes mellitus with unspecified complications
[2018-07-21] MEDS: Ipratropium/Albuterol Neb 3 ML IH SCH ×4 (11:23→23:28)
[2018-07-21] MEDS ORDERED: 0.9 % Sodium Chloride w KCl 40 MEQ/1,000 ML MLS IVC SCH (11:30)
[2018-07-21] MEDS: predniSONE 20 MG TABLET PO SCH (12:33)
--- NOTE | 2018-07-21 14:43 | Cardiothoracic Progress Note ---
Date of Encounter: 07/21/18 Time of Encounter: 14:41 - Assessment and plan (1) CAD (coronary artery disease) Current Visit: No Status: Chronic The assessment and plan as outlined above was discussed with the patient and/or family members who expressed understanding and agreement. All questions were answered. The patient is being treated with IV antibiotics for a urinary tract infection. All her incisions are healing well without signs of infection and her sternum is stable. I have an appointment to see her in the office later this month. Qualifiers: Coronary Disease-Associated Artery/Lesion type: [place] artery [place] vs. transplanted heart: [place] heart Associated angina: without angina Qualified Code(s): I25.10 - Atherosclerotic heart disease of [place] coronary artery without angina pectoris - Subjective Interval history: The patient is a 58-year-old female with a history of smoking who has been on 3 L of oxygen at home continuously. She underwent open-heart surgery on 06/26/2018, with a coronary artery bypass grafting 3, utilizing the left internal mammary artery. She was admitted with a high fever and found to have a urinary tract infection. Vital Signs, Last 4 Hours Temp Pulse Resp BP Pulse Ox 07/21/18 12:00 97.3 F L 92 16 149/71 99 07/21/18 11:25 16 98 Oxgyen Flow Rate Oxygen Flow Rate (LPM) 3 Clinical Data, last 8 Hours Output, Urine Amount 500 Weight 07/19/18 07/20/18 07/21/18 23:59 23:59 23:59 Weight 82.5 kg 82.5 kg Lungs are clear to percussion and auscultation. Heart is in a normal sinus rhythm. All incisions are healing well without signs of infection and the sternum is stable. - Labs 07/21/18 05:30 07/21/18 05:30 Lab Results, Last 24 hours 07/21/18 07/21/18 05:30 05:30 WBC 8.8 Hgb 8.7 L D Hct 27.8 L Plt Count 265 Sodium 134 L Potassium 3.1 L Chloride 96 L Carbon Dioxide 30 H BUN 16 Creatinine 1.31 H Glucose 155 H Calcium 8.8 Consult Discharge Plan - Plan Referrals: NONE,PCP [Primary Care Provider] -
[2018-07-21 16:10] LABS: Adenovirus Not Detected (Not Detect); Bordetella Pertussis Not Detected (Not Detect); Chlamydophila pneumoniae Not Detected (Not Detect); Coronavirus 229E Not Detected (Not Detect); Coronavirus HKU1 Not Detected (Not Detect); Coronavirus NL63 Not Detected (Not Detect); Coronavirus OC43 Not Detected (Not Detect); Human Metapneumovirus Not Detected (Not Detect); Human Rhinovirus/Enterovirus Not Detected (Not Detect); Influenza A Subtype 2009 H1 Not Detected (Not Detect); Influenza A Untypeable Not Detected (Not Detect); Influenza B Not Detected (Not Detect); Mycoplasma pneumoniae Not Detected (Not Detect); Parainfluenza Virus 1 Not Detected (Not Detect); Parainfluenza Virus 2 Not Detected (Not Detect); Parainfluenza Virus 3 Not Detected (Not Detect); Parainfluenza Virus 4 Not Detected (Not Detect); Respiratory Syncytial Virus Not Detected (Not Detect)
[2018-07-21] MEDS: Fluticasone Propionate Nasal 50 MCG/SPRAY BOTTLE NS SCH (20:14)
[2018-07-21] MEDS ORDERED: Insulin LISPRO 300 UNITS/3 ML VIAL SQ SCH (21:00)
[2018-07-22 03:42] LABS: Basophils % 0.2 %; Hematocrit 30.4 % (35.3-44.9); Hemoglobin 9.5 g/dL (11.5-15.4); Immature Granulocytes % 0.8 % (0-4); Lymphocytes # 0.6 K/mcL (0.6-4.6); Mean Corpuscular HGB Conc 31.3 g/dL (31.6-35.5); Mean Corpuscular Hemoglobin 26.5 pg (28.0-33.3); Mean Corpuscular Volume 84.9 fL (83.0-100.0); Mean Platelet Volume 9.6 fL (9.4-12.4); Monocytes # 0.6 K/mcL (0.0-1.3); Neutrophils # 4.7 K/mcL (1.6-8.9); Platelet Count 282 K/mcL (140-400); Red Blood Count 3.58 M/mcL (3.82-4.97); Red Cell Distribution Width 15.2 % (11.5-14.5)
[2018-07-22] MEDS: Ipratropium/Albuterol Neb 3 ML IH SCH ×4 (03:47→15:39)
[2018-07-22 04:38] LABS: BUN/Creatinine Ratio 14 (6-26); Blood Urea Nitrogen 12 mg/dL (6-20); Calcium 9.1 mg/dL (8.6-10.3); Carbon Dioxide 25 mEq/L (23-29); Chloride 105 mEq/L (98-107); Glucose 178 mg/dL (70-105); Magnesium 2.5 mg/dL (1.6-2.6); Osmolality,Calculated 292 (280-300); Sodium 139 mEq/L (136-145); eGFR For Non-African Americans > 60 (> 60)
[2018-07-22] MEDS: *HR* Heparin 5,000 UNIT/ML VIAL SQ SCH (05:32)
[2018-07-22] MEDS: Acetaminophen 325 MG TABLET PO PRN (05:33)
--- NOTE | 2018-07-22 06:57 | Cardiothoracic Progress Note ---
Date of Encounter: 07/22/18 Time of Encounter: 06:55 - Assessment and plan (1) CAD (coronary artery disease) Current Visit: No Status: Chronic The patient has an appointment to see me on August 06. She is okay for discharge from my standpoint when medically ready. Qualifiers: Coronary Disease-Associated Artery/Lesion type: [place] artery [place] vs. transplanted heart: [place] heart Associated angina: without angina Qualified Code(s): I25.10 - Atherosclerotic heart disease of [place] coronary artery without angina pectoris - Subjective Interval history: The patient feels better and has no complaints. Vital Signs, Last 4 Hours Temp Pulse Resp BP Pulse Ox 07/22/18 04:29 98.4 F 78 17 147/76 97 07/22/18 03:47 16 98 Oxgyen Flow Rate Oxygen Flow Rate (LPM) 3 Clinical Data, last 8 Hours Output, Urine Amount 600 Output, Urine Amount 1,000 Weight 07/20/18 07/21/18 07/22/18 23:59 23:59 23:59 Weight 82.5 kg 82.5 kg Lungs are clear to percussion and auscultation. Heart is in a regular rate and rhythm. All incisions are healing well without signs of infection and the sternum is stable. - Labs 07/22/18 02:57 07/22/18 02:57 Lab Results, Last 24 hours 07/22/18 07/22/18 02:57 02:57 WBC 5.9 Hgb 9.5 L Hct 30.4 L Plt Count 282 Sodium 139 Potassium 4.0 D Chloride 105 Carbon Dioxide 25 BUN 12 Creatinine 0.85 Glucose 178 H Calcium 9.1 Magnesium 2.5 Consult Discharge Plan - Plan Referrals: NONE,PCP [Primary Care Provider] -
[2018-07-22] MEDS: Insulin LISPRO 300 UNITS/3 ML VIAL SQ SCH ×2 (08:34→11:48)
[2018-07-22 08:43] VITALS: BP 151/93
--- NOTE | 2018-07-22 08:49 | Discharge Summary ---
- NOTES TO OUTPATIENT PROVIDER Notes to Outpatient Provider: Patient with history of COPD, HFpEF, was admitted for fever secondary to UTI, mild COPD exacerbation, as well as MICKIE. Improved with IV abx and IVF with normalization of Cr. She will be discharged on a short course of prednisone, bronchodilators for COPD exacerbation. Of note, she is reportedly on lasix 40mg TID which may have contributed to MICKIE as well; advise to restart 40mg QD from 07/23 onward till PCP follow up. Date of Encounter: 07/22/18 Time of Encounter: 07:30 - Discharge Diagnosis (1) Fever Priority: Primary Status: Acute Qualifiers: Fever type: unspecified Qualified Code(s): R50.9 - Fever, unspecified (2) COPD exacerbation Priority: Secondary Status: Acute (3) MICKIE (acute kidney injury) Priority: Secondary Status: Acute (4) CAD (coronary artery disease) Priority: Secondary Status: Chronic Qualifiers: Coronary Disease-Associated Artery/Lesion type: [place] artery [place] vs. transplanted heart: [place] heart Associated angina: without angina Qualified Code(s): I25.10 - Atherosclerotic heart disease of [place] coronary artery without angina pectoris (5) Anemia Priority: Secondary Status: Chronic Qualifiers: Anemia type: iron deficiency Iron deficiency anemia type: unspecified iron deficiency Qualified Code(s): D50.9 - Iron deficiency anemia, unspecified (6) Diabetes mellitus Priority: Secondary Status: Chronic Qualifiers: Diabetes mellitus type: type 2 Diabetes mellitus group home insulin use: without group home use Diabetes mellitus complication status: with unspecified complications Qualified Code(s): E11.8 - Type 2 diabetes mellitus with unspecified complications (7) DVT prophylaxis Priority: Secondary Status: Acute Hospital course: Ms. Ferguson is a 58 year old female with history of COPD, HFpEF, was admitted for fever secondary to UTI, mild COPD exacerbation, as well as MICKIE from the OSH. Improved with IV abx and IVF with normalization of Cr. CXR -ve for PNA, respiratory viral panel -ve. She will be discharged on a short course of prednisone, bronchodilators for COPD exacerbation. Of note, she is reportedly on lasix 40mg TID which may have contributed to MICKIE as well; advise to restart 40mg QD from 07/23 onward till PCP follow up. Discharge discussed with: patient, nurse - Time Spent with Patient Total time spent providing and/or coordinating discharge services: 25 mins - Discharge Medications Prescriptions: predniSONE [PredniSONE] 40 mg PO DAILY #11 tablet Sulfamethoxazole/Trimeth DS [Bactrim DS] 1 each PO BID 5 Days #10 tablet Home Medications: Carvedilol [Coreg] 25 mg PO BID 02/18/16 [History] Gabapentin [Neurontin] 600 mg PO TID 02/18/16 [History] Potassium Chloride [K-Tab ER] 10 meq PO DAILY 02/18/16 [History] clonazePAM [Clonazepam] 0.5 mg PO BID PRN 02/18/16 [History] metFORMIN [Glucophage] 500 mg PO BID #0 09/04/16 [Rx] Albuterol Sulfate [Albuterol Inhaler] 2 puff IH DAILY PRN 02/19/17 [History] Atorvastatin [Lipitor] 40 mg PO HS 02/19/17 [History] Ferrous Sulfate 325 mg PO DAILY 02/19/17 [History] Fluticasone Propionate Nasal [Flonase] 50 mcg NS BID 02/19/17 [History] Ipratropium/Albuterol Neb [Duoneb] 3 ml IH Q4HR PRN 02/19/17 [History] Isosorbide MONOnitrate (24 HR) [Imdur] 60 mg PO DAILY 02/19/17 [History] Ticagrelor [Brilinta] 90 mg PO BID 02/19/17 [History] Citalopram Hydrobromide [Citalopram HBr] 40 mg PO DAILY 06/04/18 [History] Pantoprazole Sodium [Protonix] 40 mg PO DAILY 06/04/18 [History] Nitroglycerin 0.4 mg PO AD PRN 06/17/18 [History] Amlodipine Besylate 10 mg PO DAILY 07/21/18 [History] Furosemide [Lasix] 40 mg PO DAILY tablet 07/22/18 [Rx] Sulfamethoxazole/Trimeth DS [Bactrim DS] 1 each PO BID 5 Days #10 tablet 07/22/18 [Rx] predniSONE [PredniSONE] 40 mg PO DAILY #11 tablet 07/22/18 [Rx] Allergies/Adverse Reactions: Allergy/AdvReac Type Severity Reaction Status Date / Time hydrocodone [From Vicodin] Allergy See Verified 07/21/18 11:05 Comments aripiprazole [From Abilify] AdvReac Nausea Verified 07/21/18 11:05 budesonide [From Symbicort] AdvReac Difficulty Verified 07/21/18 11:05 Breathing bupropion [From Wellbutrin] AdvReac See Verified 07/21/18 11:05 Comments Formoterol [From Symbicort] AdvReac Difficulty Verified 07/21/18 11:05 Breathing Date of admission: 07/21/18 12:48 Primary care physician: PCP NONE Consults: 07/20/18 23:49 Consult to Produce Department Supervisor [CONS] Routine Reason for SW Consult: Daughter concerned about the patient's living conditions. 07/20/18 23:55 Consult to Nurse Navigator [CONS] Routine Comment: - Constitutional Vitals: Temp Pulse Resp BP Pulse Ox 98.6 F 71 17 151/93 99 07/22/18 07:00 07/22/18 07:00 07/22/18 07:00 07/22/18 07:00 07/22/18 07:00 General appearance: Present: cooperative, A&O X 3, pleasant, no acute distress, answers questions appropriately Exam: General: Alert and oriented, not in acute distress. Cardiovascular:Normal S1 & S2, No JVD. Pulse regular. Midline incision noted. Well-healed, no erythema or fluctuance. Lungs: faint, occasional bilaterally wheezes Abdomen:Soft, non-tender, no rigidity. : No CVA tenderness Extremities:No deformity or swelling Neurological:Normal cognition and motor skills. Non-focal - Patient Status Disposition: Home, Self-Care Condition: Fair Functional capacity at discharge: independent ambulation Overall status at discharge: patient is progressing back to baseline - Discharge Instructions Follow Up With: NONE,PCP [Primary Care Provider] - Augustus Way MD [Partnered Physician] - Additional Instructions: COmplete a course of bactrim for UTI PO PRednisone for mild COPD exacerbation resume lasix 40mg once a day from 07/23 and follow up with PCP Follow up with Cardiothoracic surgery as scheduled - Diet and Activity Activity: resume usual activities as tolerated Diet: diabetic diet
[2018-07-22] MEDS ORDERED: amLODIPine 5 MG TABLET PO SCH (09:00)
[2018-07-22] MEDS ORDERED: Isosorbide MONOnitrate (24 HR) 60 MG TAB.ER.24H PO SCH (09:00)
[2018-07-22] MEDS: predniSONE 20 MG TABLET PO SCH (11:32)
[2018-07-22] MEDS: *HR* Ticagrelor 90 MG TABLET PO SCH (11:33)
[2018-07-22] MEDS: Gabapentin 300 MG CAPSULE PO SCH ×2 (11:33→15:52)
[2018-07-22] MEDS: Fluticasone Propionate Nasal 50 MCG/SPRAY BOTTLE NS SCH (11:35)
[2018-07-22] MEDS: cefTRIAXone 1,000 MG in Water for inj. (sterile) 20 ML 10 ML IVP SCH (11:35)
[2018-07-23] MEDS ORDERED: Furosemide 40 MG TABLET PO SCH (09:00)
== END 2018-07-22 17:32 | disposition home or self-care (01) | DRG 690 ==
LOC: 1NENUOBS → SUATTDRO 19:50 → 2NENU 20:31
PROVIDERS: ADMIT Internal Medicine; ATTEND Internal Medicine

== ENCOUNTER 2020-01-17 19:48 | Observation (INO) ==
[2020-01-17] MEDS ORDERED: Ondansetron 4 MG/2 ML VIAL IVP PRN (23:35)
[2020-01-17] MEDS ORDERED: Naloxone 0.4 MG/ML INJ IVP PRN (23:35)
[2020-01-18 00:36] LABS: Basophils % 0.3 %; Eosinophils # 0.1 K/mcL (0.0-0.6); Eosinophils % 0.7 %; Hematocrit 36.7 % (35.3-44.9); Hemoglobin 11.6 g/dL (11.5-15.4); INR 1.1; Lymphocytes # 0.8 K/mcL (0.6-4.6); Lymphocytes % 9.7 %; Mean Corpuscular HGB Conc 31.6 g/dL (31.6-35.5); Mean Corpuscular Hemoglobin 26.6 pg (28.0-33.3); Mean Corpuscular Volume 84.2 fL (83.0-100.0); Mean Platelet Volume 9.7 fL (9.4-12.4); Monocytes # 0.7 K/mcL (0.0-1.3); Monocytes % 7.8 %; Platelet Count 179 K/mcL (140-400); Prothrombin Time 12.5 Seconds (9.4-12.1); Red Blood Count 4.36 M/mcL (3.82-4.97); Red Cell Distribution Width 15.6 % (11.5-14.5); Segmented Neutrophils % 80.5 %; White Blood Count 8.7 K/mcL (4.3-11.1)
[2020-01-18 00:40] LABS: Bilirubin,Urine Negative (Negative); Blood,Urine Negative (Negative); Clarity,Urine Clear (Clear); Color,Urine Colorless (Yellow); Glucose,Urine (UA) Normal (Normal); Hyaline Casts,Urine Few per lpf (None Seen); Ketones,Urine Negative (Negative); Leukocyte Esterase,Urine Moderate (Negative); Nitrite,Urine Negative (Negative); Protein,Urine Negative (Neg-Trace); RBC,Urine 0-3 per hpf (0-3); Specific Gravity,Urine 1.005 (1.010-1.025); Squamous Epithelial Cell,Urine Few per hpf (None-Few); Urobilinogen,Urine Normal (Normal)
[2020-01-18] MEDS: Ringers Solution, Lactated 1,000 ML IVC SCH ×2 (00:43→10:01)
[2020-01-18 00:52] LABS: Albumin 3.7 g/dL (3.5-5.7); Albumin/Globulin Ratio 1.3 (1.1-2.2); Bilirubin,Total 0.5 mg/dL (0.3-1.0); Calcium 8.6 mg/dL (8.6-10.3); Globulin 2.8 g/dL (2.4-3.5); Magnesium 2.1 mg/dL (1.6-2.6); Potassium 2.9 mEq/L (3.5-5.1); Total Protein 6.5 g/dL (6.4-8.9); Troponin I 0.03 ng/mL (< 0.04)
[2020-01-18] MEDS: Acetaminophen 325 MG TABLET PO PRN ×3 (01:58→20:08)
[2020-01-18] MEDS ORDERED: Ipratropium/Albuterol Neb 3 ML IH PRN (02:54)
[2020-01-18] MEDS ORDERED: D5% in Water 1,000 ML IVC PRN (03:08)
[2020-01-18] MEDS ORDERED: *HR* Dextrose 50 % in Water (Vial) 50 ML VIAL IVP PRN (03:08)
[2020-01-18] MEDS ORDERED: Dextrose Gel 15 GM/37.5 ML TUBE PO PRN ×2 (03:08)
[2020-01-18] MEDS: *HR* Heparin 5,000 UNIT/ML VIAL SQ SCH ×3 (05:57→20:08)
[2020-01-18] MEDS: Tiotropium 18 MCG inhalation IH SCH (07:36)
[2020-01-18] MEDS ORDERED: clonazePAM 0.5 MG TABLET PO PRN (08:56)
[2020-01-18] MEDS ORDERED: Isosorbide MONOnitrate (24 HR) 60 MG TAB.ER.24H PO SCH (09:00)
[2020-01-18] MEDS ORDERED: cefTRIAXone 1,000 MG in Water for inj. (sterile) 10 ML IVP SCH (09:00)
[2020-01-18 09:31] LABS: BUN/Creatinine Ratio 9 (6-26); Blood Urea Nitrogen 9 mg/dL (6-20); Calcium 9.1 mg/dL (8.6-10.3); Carbon Dioxide 28 mEq/L (23-29); Chloride 101 mEq/L (98-107); Glucose 184 mg/dL (70-105); Osmolality,Calculated 289 (280-300); Potassium 3.1 mEq/L (3.5-5.1); Sodium 138 mEq/L (136-145); eGFR For African Americans > 60 (> 60); eGFR For Non-African Americans 54 (> 60)
[2020-01-18] MEDS: Insulin LISPRO 300 UNITS/3 ML VIAL SQ SCH ×3 (09:51→15:47)
[2020-01-18] MEDS: carvediloL 25 MG TABLET PO SCH ×2 (09:57→20:07)
[2020-01-18] MEDS: *HR* Ticagrelor 90 MG TABLET PO SCH ×2 (09:57→20:08)
[2020-01-18] MEDS: Gabapentin 300 MG CAPSULE PO SCH ×3 (09:57→20:07)
[2020-01-18] MEDS: BuPROPion SR (12 HR) 150 MG TABLET PO SCH ×2 (09:57→20:07)
[2020-01-18] MEDS: Fluticasone Propionate Nasal 50 MCG/SPRAY BOTTLE NS SCH ×2 (10:06→20:09)
[2020-01-18] MEDS ORDERED: Insulin LISPRO 300 UNITS/3 ML VIAL SQ SCH (21:00)
[2020-01-18] MEDS ORDERED: Insulin DETEMIR 100 UNIT/ML X5UNITS SQ SCH (21:00)
[2020-01-19 03:24] LABS: BUN/Creatinine Ratio 12 (6-26); Blood Urea Nitrogen 12 mg/dL (6-20); Calcium 9.1 mg/dL (8.6-10.3); Carbon Dioxide 28 mEq/L (23-29); Chloride 106 mEq/L (98-107); Glucose 114 mg/dL (70-105); Magnesium 2.2 mg/dL (1.6-2.6); Osmolality,Calculated 291 (280-300); Potassium 3.1 mEq/L (3.5-5.1); Sodium 140 mEq/L (136-145); eGFR For African Americans > 60 (> 60); eGFR For Non-African Americans 55 (> 60)
[2020-01-19] MEDS ORDERED: Potassium Chloride Elixir 20 MEQ/15 ML UDC PO ONE (05:11)
[2020-01-19] MEDS ORDERED: Nystatin SUSP 5 ML UD.LIQ PO SCH (05:15)
[2020-01-19] MEDS: *HR* Heparin 5,000 UNIT/ML VIAL SQ SCH (05:59)
[2020-01-19 07:23] VITALS: BP 134/66
[2020-01-19] MEDS: Insulin LISPRO 300 UNITS/3 ML VIAL SQ SCH (07:30)
[2020-01-19] MEDS: Tiotropium 18 MCG inhalation IH SCH (07:54)
== END 2020-01-19 14:30 | disposition home health service (06) ==
LOC: 3BNU → SUATTDRO 21:53
PROVIDERS: ADMIT Internal Medicine; ATTEND Internal Medicine

== ENCOUNTER 2021-02-20 21:17 | Observation (INO) ==
[2021-02-21] MEDS ORDERED: Ondansetron 4 MG/2 ML VIAL IVP PRN (01:38)
[2021-02-21] MEDS ORDERED: Acetaminophen 325 MG TABLET PO PRN (01:38)
[2021-02-21] MEDS ORDERED: Melatonin 3 MG TABLET PO PRN (01:38)
[2021-02-21] MEDS ORDERED: *HR* OxyCODONE Immed Rel 5 MG TABLET PO PRN (01:38)
[2021-02-21] MEDS ORDERED: *HR* HYDROcodone/Acet 5/325 mg TABLET PO PRN (01:38)
[2021-02-21] MEDS ORDERED: Naloxone 0.4 MG/ML INJ IVP PRN (01:38)
[2021-02-21] MEDS ORDERED: clonazePAM 0.5 MG TABLET PO PRN (01:40)
[2021-02-21] MEDS ORDERED: Morphine Sulfate 2 MG/ML SYRINGE IVP PRN (01:45)
[2021-02-21] MEDS ORDERED: Nitroglycerin 0.4 MG TAB.SUBL SL PRN (01:45)
[2021-02-21] MEDS ORDERED: Dextrose Gel 15 GM/37.5 ML TUBE PO PRN ×2 (01:55)
[2021-02-21] MEDS ORDERED: *HR* Dextrose 50 % in Water (Vial) 50 ML VIAL IVP PRN (01:55)
[2021-02-21] MEDS ORDERED: D5% in Water 1,000 ML IVC PRN (01:55)
[2021-02-21 02:14] LABS: Basophils % 0.5 %; Eosinophils # 0.1 K/mcL (0.0-0.6); Eosinophils % 1.8 %; Hematocrit 34.1 % (35.3-44.9); Hemoglobin 10.9 g/dL (11.5-15.4); Immature Granulocytes % 0.6 % (0-4); Lymphocytes % 15.3 %; Mean Corpuscular Hemoglobin 26.8 pg (28.0-33.3); Mean Platelet Volume 9.5 fL (9.4-12.4); Monocytes # 0.5 K/mcL (0.0-1.3); Monocytes % 7.3 %; Neutrophils # 4.6 K/mcL (1.6-8.9); Platelet Count 216 K/mcL (140-400); Red Blood Count 4.06 M/mcL (3.82-4.97); Red Cell Distribution Width 15.4 % (11.5-14.5); Segmented Neutrophils % 74.5 %; White Blood Count 6.2 K/mcL (4.3-11.1)
[2021-02-21 02:36] LABS: Alanine Aminotransferase 8 Units/L (7-52); Albumin 3.7 g/dL (3.5-5.7); Albumin/Globulin Ratio 1.4 (1.1-2.2); Alkaline Phosphatase 141 Units/L (34-104); Aspartate Amino Transferase 11 Units/L (13-39); BUN/Creatinine Ratio 12 (6-26); Bilirubin,Total 0.3 mg/dL (0.3-1.0); Blood Urea Nitrogen 12 mg/dL (8-23); Calcium 8.8 mg/dL (8.6-10.3); Carbon Dioxide 24 mEq/L (23-29); Chloride 109 mEq/L (98-107); Chol/HDL Ratio 4.7 (0-4.9); Globulin 2.6 g/dL (2.4-3.5); Glucose 103 mg/dL (70-105); Magnesium 2.1 mg/dL (1.6-2.6); Osmolality,Calculated 292 (280-300); Phosphorous 3.4 mg/dL (2.7-4.5); Potassium 3.3 mEq/L (3.5-5.1); Sodium 141 mEq/L (136-145); Total Protein 6.3 g/dL (6.4-8.9); eGFR For African Americans > 60 (> 60); eGFR For Non-African Americans 58 (> 60)
[2021-02-21] MEDS ORDERED: Ipratropium/Albuterol Neb 3 ML IH PRN (04:00)
[2021-02-21] MEDS: *HR* Heparin 5,000 UNIT/ML VIAL SQ SCH ×3 (04:07→21:52)
[2021-02-21] MEDS: Insulin LISPRO 300 UNITS/3 ML VIAL SUBQ SCH ×4 (07:23→22:08)
[2021-02-21] MEDS: Tiotropium 10 INH DOSE IH SCH (07:39)
[2021-02-21 08:24] LABS: Bacteria,Urine Few per hpf (None-Few); Bilirubin,Urine Negative (Negative); Blood,Urine Negative (Negative); Clarity,Urine Clear (Clear); Color,Urine Colorless (Yellow); Glucose,Urine (UA) Normal (Normal); Ketones,Urine Negative (Negative); Leukocyte Esterase,Urine Small (Negative); Nitrite,Urine Negative (Negative); Protein,Urine Negative (Neg-Trace); RBC,Urine 0-3 per hpf (0-3); Specific Gravity,Urine 1.009 (1.010-1.025); Urobilinogen,Urine Normal (Normal); WBC,Urine 15-30 per hpf (0-3)
[2021-02-21] MEDS: Gabapentin 300 MG CAPSULE PO SCH ×3 (08:43→21:51)
[2021-02-21] MEDS: cefTRIAXone 1,000 MG in Water for inj. (sterile) 10 ML IVP SCH (08:43)
[2021-02-21] MEDS: BuPROPion SR (12 HR) 150 MG TABLET PO SCH ×2 (08:44→21:52)
[2021-02-21] MEDS: *HR* Ticagrelor 90 MG TABLET PO SCH ×2 (08:44→21:51)
[2021-02-21] MEDS: amLODIPine 5 MG TABLET PO SCH (08:44)
[2021-02-21] MEDS: Furosemide 40 MG TABLET PO SCH ×3 (08:44→21:51)
[2021-02-21] MEDS: Isosorbide MONOnitrate (24 HR) 60 MG TAB.ER.24H PO SCH (08:44)
[2021-02-21] MEDS: carvediloL 25 MG TABLET PO SCH ×2 (08:44→16:12)
[2021-02-21] MEDS: Aspirin 81 MG TAB.CHEW PO SCH (08:45)
[2021-02-21] MEDS ORDERED: Isovue-370 500 ML BOTTLE IVP ONE (12:36)
[2021-02-22 01:28] LABS: Basophils % 0.6 %; Eosinophils # 0.2 K/mcL (0.0-0.6); Eosinophils % 2.2 %; Hematocrit 33.5 % (35.3-44.9); Hemoglobin 10.7 g/dL (11.5-15.4); Immature Granulocytes % 0.6 % (0-4); Lymphocytes % 15.5 %; Mean Corpuscular HGB Conc 31.9 g/dL (31.6-35.5); Mean Corpuscular Hemoglobin 26.8 pg (28.0-33.3); Mean Corpuscular Volume 83.8 fL (83.0-100.0); Mean Platelet Volume 9.9 fL (9.4-12.4); Monocytes # 0.5 K/mcL (0.0-1.3); Monocytes % 6.9 %; Platelet Count 231 K/mcL (140-400); Red Cell Distribution Width 15.4 % (11.5-14.5); Segmented Neutrophils % 74.2 %; White Blood Count 6.7 K/mcL (4.3-11.1)
[2021-02-22 01:42] LABS: BUN/Creatinine Ratio 16 (6-26); Blood Urea Nitrogen 17 mg/dL (8-23); Calcium 9.5 mg/dL (8.6-10.3); Carbon Dioxide 27 mEq/L (23-29); Chloride 105 mEq/L (98-107); Glucose 110 mg/dL (70-105); Magnesium 2.2 mg/dL (1.6-2.6); Osmolality,Calculated 294 (280-300); Phosphorous 4.9 mg/dL (2.7-4.5); Potassium 3.6 mEq/L (3.5-5.1); Sodium 141 mEq/L (136-145); eGFR For African Americans > 60 (> 60); eGFR For Non-African Americans 53 (> 60)
[2021-02-22 04:38] LABS: Hepatitis B Surface Antigen Nonreactive (Nonreactive)
[2021-02-22 05:06] LABS: Hepatitis B Core IgM Nonreactive (Nonreactive)
[2021-02-22 05:07] LABS: Hepatitis C Virus Antibody Nonreactive (Nonreactive)
[2021-02-22 05:08] LABS: Hepatitis A Antibody IgM Nonreactive (Nonreactive)
[2021-02-22] MEDS: *HR* Heparin 5,000 UNIT/ML VIAL SQ SCH (06:18)
[2021-02-22] MEDS: Tiotropium 10 INH DOSE IH SCH (07:29)
[2021-02-22] MEDS: Isosorbide MONOnitrate (24 HR) 60 MG TAB.ER.24H PO SCH (08:21)
[2021-02-22] MEDS: Furosemide 40 MG TABLET PO SCH (08:21)
[2021-02-22] MEDS: *HR* Ticagrelor 90 MG TABLET PO SCH (08:21)
[2021-02-22] MEDS: Aspirin 81 MG TAB.CHEW PO SCH (08:21)
[2021-02-22] MEDS: BuPROPion SR (12 HR) 150 MG TABLET PO SCH (08:21)
[2021-02-22] MEDS: Gabapentin 300 MG CAPSULE PO SCH (08:22)
[2021-02-22] MEDS: cefTRIAXone 1,000 MG in Water for inj. (sterile) 10 ML IVP SCH (08:22)
[2021-02-22] MEDS: amLODIPine 5 MG TABLET PO SCH (08:22)
[2021-02-22] MEDS: Insulin LISPRO 300 UNITS/3 ML VIAL SUBQ SCH ×3 (08:42→12:25)
[2021-02-22] MEDS: carvediloL 25 MG TABLET PO SCH (08:52)
[2021-02-22 11:17] VITALS: BP 116/74; PULSE 62; TEMP 98.1; O2SAT 98
[2021-02-24 23:11] LABS: Lambda Qnt Free Light Chains 22.75 mg/L (5.71-26.30)
[2021-02-25 12:10] LABS: Kappa Qnt Free Light Chains 18.66 mg/L (3.30-19.40)
[2021-02-26 09:40] LABS: Alpha 2 Globulin (PEP) 1.01 g/dL (0.48-1.05)
[2021-02-26 13:44] LABS: IFE Reflexed IFE Done; Immunoglobulin A 95 mg/dL (68-408); Immunoglobulin G 544 mg/dL (768-1632); Immunoglobulin M 241 mg/dL (35-263)
[2021-02-27 11:18] LABS: HIV-1 Viral Load Interp NOT DETECTED (Not Detected)
== END 2021-02-22 14:35 | disposition home health service (06) ==
LOC: 3NENU → SUATTDRO 02-21 00:42
PROVIDERS: ADMIT Family Medicine; ATTEND Internal Medicine
PROC: IRLYMPH (2021-02-21 13:00)